=== PATIENT | female | born 1935 | race Caucasian/White ===

== ENCOUNTER 2017-08-07 06:40 | Inpatient (IN) ==
--- NOTE | 2017-08-07 07:41 | Emergency Department Note ---
SOB HPI - General Chief Complaint: Shortness of Breath/Dyspnea Stated Complaint: possible aspriration Time Seen by Provider: 08/07/17 07:07 Mode of arrival: EMS - History of Present Illness 81-year-old female brought in by ambulance [facility] which [facility] that she may have aspirated during supper the night before. She had a choking episode during supper. when the tennis desk team member arrived this morning states her sats are in the low 90s but they did put her on some low flow O2 and his sats are running at 9798%. Is running a low-grade temperature of 100.9. unAble to get a good history, she has had a history of a CVA unknown what her baseline is at this time. - Related Data Home Medications Medication Instructions Recorded Confirmed Aspirin [Lite Coat Aspirin] 325 mg PO DAILY 11/02/16 08/07/17 Docusate Sodium [Colace] 100 mg PO BID 11/02/16 08/07/17 Furosemide [Lasix] 40 mg PO BID 11/02/16 08/07/17 Gabapentin [Neurontin] 200 mg PO TID 11/02/16 08/07/17 Ipratropium/Albuterol [Duoneb] 3 ml NEB Q6HP PRN 11/02/16 08/07/17 Magnesium Hydroxide [Milk of 30 ml PO ONCE 11/02/16 08/07/17 Magnesia] Potassium Chloride [Klor-Con 10] 10 meq PO DAILY 11/02/16 08/07/17 Sennosides [Senna] 8.6 mg PO ONCE 11/02/16 08/07/17 Simethicone [Gas-X] 80 mg PO TID PRN 11/02/16 08/07/17 amLODIPine [Norvasc] 10 mg PO DAILY 11/02/16 08/07/17 cloNIDine HCL [Catapres] 0.2 mg PO HS 11/02/16 08/07/17 predniSONE [Prednisone] 20 mg PO DAILY 11/02/16 08/07/17 Previous Rx's Medication Instructions Recorded Acetaminophen [Tylenol] 650 mg PO Q6HP PRN #0 tablet 11/06/16 Baclofen [Lioresal] 10 mg PO Q6HP PRN #0 tablet 11/06/16 Calcium W/Vit D3 500 mg PO BID tablet 11/06/16 Docusate Sodium [Colace] 100 mg PO BID capsule 11/06/16 HYDROcodone/APAP 10/325MG [[place] 1 - 2 tab PO Q4HP PRN #30 tablet 11/06/16 10/325Mg] LORazepam [Ativan] 0.5 mg PO HSP PRN #20 tablet 11/06/16 Magnesium Hydroxide [Milk of 30 ml PO DAILYP PRN #0 oral.susp 11/06/16 Magnesia] Multivit,Ther Iron,Ca,FA & Min 1 tab PO DAILY tablet 11/06/16 [Multivitamin W/Minerals] Naloxone HCl [Narcan] 0.1 mg IV Q2MIN PRN #0 vial 11/06/16 Sennosides [Senokot] 2 tab PO HS PRN #0 tablet 11/06/16 Warfarin [Coumadin] 5 mg PO DAILY@1400 tablet 11/06/16 Allergies Allergy/AdvReac Type Severity Reaction Status Date / Time No Known Drug Allergies Allergy Verified 11/02/16 21:58 Review of Systems Limitations: ROS unobtainable due to patients medical condition Constitutional: Reports: fever, chills Past Medical History - Past Medical History Medical history: Reports: other (Hypertension, CVA with dysphasia, GERD dementia polymyalgia rheumatica) Surgical history ED: Reports: non-contributory - Social History smoking status: Never smoker Alcohol use: Reports: None Drug use: Reports: none Course Vital Signs Temperature 100.9 F H 08/07/17 06:42 Pulse Rate 91 H 08/07/17 06:42 Respiratory Rate 20 08/07/17 06:42 Blood Pressure 145/56 08/07/17 06:42 Pulse Oximetry (%) 97 08/07/17 06:42 Temperature 100.9 F H 08/07/17 06:42 Pulse Rate 95 H 08/07/17 07:02 Respiratory Rate 20 08/07/17 06:42 Blood Pressure 140/52 08/07/17 07:02 Pulse Oximetry (%) 98 08/07/17 07:02 Shortness of Breath/Dyspnea - [facility] Narrative Medical decision making narrative: Chest x-ray reveals left upper lobe infiltrate. Her white count is elevated to 16,600 with 79 segs and 6 bands her lactic acid is 3.2. Signs are stable no hypotension. Sats in the holding at 9798 on 2 L of O2. She started on Rocephin and Zithromax. I will use Zithromax as the INR was only 1.1 at this time. She is DNR and comfort care only but antibiotics and IV fluids okay. - Lab Data Result diagrams: 08/07/17 07:17 08/07/17 07:17 Lab Results 08/07/17 08/07/17 08/07/17 Range/Units 07:17 07:17 07:17 WBC 16.6 H (4.5-11.0) K/mcL RBC 4.38 (4.00-5.20) M/mcL Hgb 14.3 (12.0-15.0) g/dL Hct 43.0 (36.0-48.0) % MCV 98.2 (80.0-100.0) fL MCH 32.7 (26.0-34.0) pg MCHC 33.3 (31.0-36.0) g/dL RDW 14.1 (11.5-14.5) % Plt Count 223 (140-440) K/mcL MPV 10.1 (7.4-10.4) fL Total Counted 100 Seg Neutrophils % 79 H (38-78) % Band Neutrophils % 6 (0-10) % Lymphocytes % 5 L (15-49) % Monocytes % (Manual) 8 (1-12) % Eosinophils % (Manual) 2 (0-7) % Platelet Estimate Normal (NORMAL) RBC Morphology Normal (NORMAL) PT (11.9-14.5) sec INR (0.9-1.1) VBG Lactic Acid 3.2 H (0.5-2.2) mmol/L Sodium 141 (133-145) mmol/L Potassium 3.7 (3.3-5.1) mmol/L Chloride 97 (96-108) mmol/L Carbon Dioxide 26 (22-30) mmol/L Anion Gap 18.0 H (8-16) BUN 23 (8-23) mg/dl Creatinine 1.1 (0.6-1.1) mg/dl GFR Calculation 47 Glucose 143 H (70-105) mg/dL Calcium 9.2 (8.6-10.4) mg/dl Total Bilirubin 0.4 (0.0-1.0) mg/dL AST 22 (0-37) U/l ALT 22 (0-40) U/l Alkaline Phosphatase 77 (39-117) U/L NT-Pro-B Natriuret Pep 950.5 H (0-450) pg/ml Total Protein 7.5 (5.9-8.4) gm/dL Albumin 3.9 (3.2-5.2) gm/dL Globulin 3.6 (2.2-3.7) gm/dL Albumin/Globulin Ratio 1.1 (1.0-2.3) 08/07/17 Range/Units 07:17 WBC (4.5-11.0) K/mcL RBC (4.00-5.20) M/mcL Hgb (12.0-15.0) g/dL Hct (36.0-48.0) % MCV (80.0-100.0) fL MCH (26.0-34.0) pg MCHC (31.0-36.0) g/dL RDW (11.5-14.5) % Plt Count (140-440) K/mcL MPV (7.4-10.4) fL Total Counted Seg Neutrophils % (38-78) % Band Neutrophils % (0-10) % Lymphocytes % (15-49) % Monocytes % (Manual) (1-12) % Eosinophils % (Manual) (0-7) % Platelet Estimate (NORMAL) RBC Morphology (NORMAL) PT 14.8 H (11.9-14.5) sec INR 1.1 (0.9-1.1) VBG Lactic Acid (0.5-2.2) mmol/L Sodium (133-145) mmol/L Potassium (3.3-5.1) mmol/L Chloride (96-108) mmol/L Carbon Dioxide (22-30) mmol/L Anion Gap (8-16) BUN (8-23) mg/dl Creatinine (0.6-1.1) mg/dl GFR Calculation Glucose (70-105) mg/dL Calcium (8.6-10.4) mg/dl Total Bilirubin (0.0-1.0) mg/dL AST (0-37) U/l ALT (0-40) U/l Alkaline Phosphatase (39-117) U/L NT-Pro-B Natriuret Pep (0-450) pg/ml Total Protein (5.9-8.4) gm/dL Albumin (3.2-5.2) gm/dL Globulin (2.2-3.7) gm/dL Albumin/Globulin Ratio (1.0-2.3) Disposition Pt seen by [facility]/PA only: No Clinical Impression: Pneumonia involving left lung Qualifiers: Pneumonia type: due to unspecified organism Lung location: upper lobe of lung Qualified Code(s): J18.1 - Lobar pneumonia, unspecified organism Disposition: Xfer As Inpt ([facility]) Condition: Undetermined Referrals: Guille Arriaga MD [Primary Care Provider] - Time of Disposition: 08:54
[2017-08-07] MEDS ORDERED: cefTRIAXone 1 GM VIAL IV ONE (07:58)
[2017-08-07 07:59] LABS: Mean Cell Volume 98.2 fL (80.0-100.0); Mean Corpuscular HGB Conc 33.3 g/dL (31.0-36.0); Mean Corpuscular Hemoglobin 32.7 pg (26.0-34.0); Platelet Count 223 K/mcL (140-440); RBC 4.38 M/mcL (4.00-5.20); Red Cell Distribution Width 14.1 % (11.5-14.5)
[2017-08-07 08:18] LABS: ALT/SGPT 22 U/l (0-40); Albumin 3.9 gm/dL (3.2-5.2); Albumin/Globulin Ratio 1.1 (1.0-2.3); Alkaline Phosphatase 77 U/L (39-117); Blood Urea Nitrogen 23 mg/dl (8-23); proBNP 950.5 pg/ml (0-450)
--- NOTE | 2017-08-07 08:20 | XRay Report ---
INDICATION: Fever TECHNIQUE: AP chest x-ray,semierect portable COMPARISON: 11/04/2016, 11/02/2016 FINDINGS:Prominent interstitial markings bilaterally. This is unchanged. Left heart border is not well-visualized and left upper lobe infiltrate is possible. Findings may represent acute pneumonia. Follow-up chest x-ray would be helpful. No change in heart size. No evidence for congestive heart failure. There is mitral valve annular calcification. IMPRESSION: Abnormal interstitial markings bilaterally, unchanged 1. Possible left upper lobe infiltrate. Follow-up radiographs recommended Interpreted and Authenticated by: Erick Wasserman 08/07/17
[2017-08-07 08:23] LABS: Band Neutrophils % 6 % (0-10); Eosinophils % (Manual) 2 % (0-7); Lymphocytes % 5 % (15-49); Monocytes % (Manual) 8 % (1-12); Platelet Estimate NORMAL (NORMAL); RBC Morphology NORMAL (NORMAL); Segmented Neutrophils % 79 % (38-78)
[2017-08-07] MEDS ORDERED: AZITHROMYCIN 500 MG in DEXTROSE 5% IN WATER 250 ML IV ONE (08:41)
[2017-08-07 09:30] LABS: Appearance,Urine CLEAR; Bacteria,Urine 0 /hpf (0); Bilirubin,Urine NEG (NEG); Color,Urine YELLOW; Glucose,Urine (UA) NEGATIVE (NEG); Leukocyte Esterase,Urine NEG /uL (NEG); Mucus,Urine FEW /hpf (0); Nitrate,Urine NEG (NEG); Protein,Urine NEG (NEG); Specific Gravity,Urine 1.019 (1.000-1.035); Urine Blood NEG mg/dL (<0.03); Urine Hyaline Cast 33 /lpf (0-2); Urine RBC 3 /hpf (0-1); Urine Squamous Epithelial Cell 0 /hpf (0-4); Urine Transitional Epi Cells < 1 /hpf (0-2); Urine WBC 1 /hpf (0-4); Urobilinogen,Urine NEG (NEG)
[2017-08-07] MEDS ORDERED: ONDANSETRON 4 MG/2 ML VIAL IV PRN (10:47)
[2017-08-07] MEDS: LEVOFLOXACIN 750 MG/150 ML BAG IV SCH (11:21)
[2017-08-07] MEDS: 0.9 % SODIUM CHLORIDE 10 ML SYRINGE IV SCH ×3 (11:21→23:56)
[2017-08-07] MEDS: PIPERACILLIN SODIUM/TAZOBACTAM 3.375 GM in DEXTROSE 5% IN WATER 50 ML IV SCH ×3 (13:05→23:57)
[2017-08-07] MEDS ORDERED: ACETAMINOPHEN 325 MG TABLET PO PRN (17:10)
[2017-08-07] MEDS ORDERED: SIMETHICONE 80 MG TAB.CHEW PO PRN (17:10)
[2017-08-07] MEDS ORDERED: IPRATROPIUM/ALBUTEROL 3 ML AMPUL.NEB NEB PRN (17:10)
[2017-08-07] MEDS ORDERED: NALOXONE HCL 0.4 MG/ML VIAL IV PRN (17:10)
[2017-08-07] MEDS ORDERED: MAGNESIUM HYDROXIDE 30 ML ORAL.SUSP PO PRN (17:10)
[2017-08-07] MEDS ORDERED: SENNOSIDES 1 TABLET PO PRN (17:10)
[2017-08-07] MEDS: DABIGATRAN ETEXILATE MESYLATE 75 MG CAPSULE PO SCH (21:21)
[2017-08-07] MEDS: CALCIUM W/VIT D3 500 MG TABLET PO SCH (21:21)
[2017-08-07] MEDS: cloNIDine HCL 0.1 MG TABLET PO SCH (21:21)
[2017-08-07] MEDS: LORazepam 0.5 MG TABLET PO PRN (21:21)
[2017-08-07] MEDS: MAGNESIUM HYDROXIDE 30 ML ORAL.SUSP PO SCH (21:31)
[2017-08-07] MEDS: GABAPENTIN 400 MG CAPSULE PO SCH (21:32)
[2017-08-07] MEDS: DOCUSATE SODIUM 100 MG CAPSULE PO SCH (21:33)
[2017-08-07] MEDS ORDERED: GABAPENTIN 100 MG CAPSULE PO ONE (21:36)
--- NOTE | 2017-08-07 22:06 | Internal Med History&Physical ---
Medical - H&P: [facility] Patient information: Note initiated : 08/07/17 at 9:56 pm Service Date, if different from initiated Date: [] Patient: January Torres a 81 y/o F admitted on 08/07/17 for Possible Aspiration. Chief complaint: altered mental status History of present illness: Ms. Torres is a 81 year old F, resident of a SNF, sent for evaluation of decreased mental status. The night before patient had a coughing spell during dinner, otherwise no changes reported. O2 sats taken by EMT was low 90's and temp 100.0, and patient was non-responsive to verbal stimuli. 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 At baseline she is 'aphasic', but alert and engaged with her visitors. Patient was not responsive to verbal stimuli. There were upper airway secretions causing gurgling sound. ROS unobtainable: due to mental status (non-responsive to verbal stimuli) Medical - H&P: PMH Medical history: Medical History Intertrochanteric fracture of right hip (Acute) CVA (cerebral vascular accident) (Chronic) Closed right hip fracture (Acute) Pneumonia involving left lung (Acute) Functional capacity: wheelchair bound Smoking status: Never smoker Drug use: none Alcohol use: none Medical - H&P: Meds Home Medications Medication Instructions Recorded Confirmed Type Furosemide [Lasix] 40 mg PO BID 11/02/16 08/07/17 History Gabapentin [Neurontin] 200 mg PO BID 11/02/16 08/07/17 History Ipratropium/Albuterol [Duoneb] 3 ml NEB Q6HP PRN 11/02/16 08/07/17 History Sennosides [Senna] 8.6 mg PO ONCE 11/02/16 08/07/17 History Simethicone [Gas-X] 80 mg PO TID PRN 11/02/16 08/07/17 History amLODIPine [Norvasc] 10 mg PO DAILY 11/02/16 08/07/17 History cloNIDine HCL [Catapres] 0.2 mg PO HS 11/02/16 08/07/17 History Acetaminophen [Tylenol] 650 mg PO Q6HP PRN #0 tablet 11/06/16 08/07/17 Rx Baclofen [Lioresal] 10 mg PO Q6HP PRN #0 tablet 11/06/16 08/07/17 Rx Calcium W/Vit D3 500 mg PO BID tablet 11/06/16 08/07/17 Rx Docusate Sodium [Colace] 100 mg PO BID capsule 11/06/16 08/07/17 Rx HYDROcodone/APAP 10/325MG [[place] 1 - 2 tab PO Q4HP PRN #30 tablet 11/06/1608/07 Rx 10/325Mg] LORazepam [Ativan] 0.5 mg PO HSP PRN #20 tablet 11/06/16 08/07/17 Rx Magnesium Hydroxide [Milk of 30 ml PO DAILYP PRN #0 oral.susp 11/06/16 08/07/17 Rx Magnesia] Sennosides [Senokot] 2 tab PO HS PRN #0 tablet 11/06/16 08/07/17 Rx Calcitonin [Miacalcin] 1 spray NS DAILY 08/07/17 08/07/17 History Cholecalciferol (Vitamin D3) [D3 2,000 unit PO DAILY 08/07/17 08/07/17 History Dots] Dabigatran Etexilate Mesylate 75 mg PO BID 08/07/17 08/07/17 History [Pradaxa] Escitalopram [Lexapro] 5 mg PO DAILY 08/07/17 08/07/17 History Folic Acid 1 mg PO DAILY 08/07/17 08/07/17 History Gabapentin [Neurontin] 300 mg PO HS 08/07/17 08/07/17 History Misoprostol [Cytotec] 100 mcg PO ACB 08/07/17 08/07/17 History Multivitamin [One Daily] 1 each PO DAILY 08/07/17 08/07/17 History Zinc Gluconate [Zinc] 50 mg PO WEEKLY 08/07/17 08/07/17 History predniSONE [Prednisone] 10 mg PO DAILY 08/07/17 08/07/17 History Allergies Allergy/AdvReac Type Severity Reaction Status Date / Time No Known Drug Allergies Allergy Verified 11/02/16 21:58 Medical - H&P: Exam - Constitutional Vitals: Temp Pulse Resp BP Pulse Ox 98.3 F 81 22 145/73 95 08/07/17 20:00 08/07/17 20:00 08/07/17 20:00 08/07/17 20:00 08/07/17 20:00 General appearance: moderate distress, obese - Head Head exam: Present: normal inspection - ENT ENT exam: Present: mucous membranes dry - Neck Neck exam: Present: normal inspection - Respiratory Respiratory exam: Present: accessory muscle use, rales, rhonchi - Cardiovascular Cardiovascular exam: Present: normal rate and rhythm - GI/Abdominal GI/Abdominal exam: Present: normal bowel sounds, soft - Extremities Exam Extremities exam: Present: pedal edema Medical - H&P: Reslt - Labs CBC & Chem 7: 08/07/17 07:17 08/07/17 07:17 Labs: Short CBC 08/07/17 Range/Units 07:17 WBC 16.6 H (4.5-11.0) K/mcL Hgb 14.3 (12.0-15.0) g/dL Hct 43.0 (36.0-48.0) % Plt Count 223 (140-440) K/mcL BMP 08/07/17 07:17 Sodium 141 Potassium 3.7 Chloride 97 Carbon Dioxide 26 BUN 23 Creatinine 1.1 Glucose 143 H Calcium 9.2 Liver Function 08/07/17 Range/Units 07:17 Total Bilirubin 0.4 (0.0-1.0) mg/dL AST 22 (0-37) U/l ALT 22 (0-40) U/l Alkaline Phosphatase 77 (39-117) U/L Albumin 3.9 (3.2-5.2) gm/dL Urine 08/07/17 Range/Units 08:57 Urine Color Yellow Urine Appearance Clear Urine pH 5.0 (5.0-9.0) Ur Specific [place] 1.019 (1.000-1.035) Urine Protein Neg (NEG) mg/dL Urine Glucose (UA) Negative (NEG) mg/dL Medical - H&P: A/P - Narrative A/P Narrative: 81-year-old female, resident of a SNF, presented 08/07 with following problems: + PNEUMONIA With respiratory distress, low grade fever, WBC 16, CXR: COLEMAN infiltrate) DD aspiration pneumonia vs healthcare associated pneumonia Empric treatment started with Zosyn and Levofloxacin (MRSA: negative) + S/P CVA WITH RIGHT HEMIPARESIS AND APHASIA. On Dabigatran, will continue Is on pureed diet in SNF' Will obtain swallowing eval + POLYMYALGIA RHEUMATICA On prednisone 10 mg. Will continue. + CHRONIC PAIN Coninue usual meds. DVT prophylaxis: dabigatran Code status: DNR
[2017-08-08] MEDS: 0.9 % SODIUM CHLORIDE 10 ML SYRINGE IV SCH ×3 (05:30→20:27)
[2017-08-08] MEDS: PIPERACILLIN SODIUM/TAZOBACTAM 3.375 GM in DEXTROSE 5% IN WATER 50 ML IV SCH ×2 (05:30→11:36)
[2017-08-08 05:39] LABS: Basophils # (Auto) 0 K/mcL (0.0-0.3); Basophils % (Auto) 0.3 % (0.0-2.0); Eosinophils # (Auto) 0.3 K/mcL (0.0-0.7); Eosinophils % (Auto) 2.6 % (0.0-7.0); Lymphocytes # (Auto) 1.6 K/mcL (1.5-4.8); Lymphocytes % (Auto) 15.6 % (15.5-49.0); Mean Cell Volume 97.9 fL (80.0-100.0); Mean Corpuscular HGB Conc 34.1 g/dL (31.0-36.0); Mean Corpuscular Hemoglobin 33.4 pg (26.0-34.0); Monocytes # (Auto) 0.8 K/mcL (0.1-0.9); Monocytes % (Auto) 7.5 % (1.0-12.0); Platelet Count 179 K/mcL (140-440); RBC 3.66 M/mcL (4.00-5.20); Red Cell Distribution Width 14.2 % (11.5-14.5)
[2017-08-08 06:01] LABS: Albumin 3.2 gm/dL (3.2-5.2); Blood Urea Nitrogen 16 mg/dl (8-23)
[2017-08-08] MEDS: PANTOPRAZOLE 40 MG VIAL IV SCH (07:23)
[2017-08-08] MEDS ORDERED: POTASSIUM CHLORIDE 10 MEQ TABLET PO SCH (08:00)
[2017-08-08] MEDS: BACLOFEN 10 MG TABLET PO PRN ×2 (08:07→19:27)
[2017-08-08] MEDS: predniSONE 20 MG TABLET PO SCH (08:07)
[2017-08-08] MEDS ORDERED: ENOXAPARIN 40 MG/0.4 ML SYRINGE SQ SCH (09:00)
[2017-08-08] MEDS: DABIGATRAN ETEXILATE MESYLATE 75 MG CAPSULE PO SCH ×2 (09:26→20:28)
[2017-08-08] MEDS: GABAPENTIN 400 MG CAPSULE PO SCH ×2 (09:26→20:28)
[2017-08-08] MEDS: HYDROcodone/APAP 10/325MG TABLET PO PRN ×2 (09:26→17:22)
[2017-08-08] MEDS: FUROSEMIDE 40 MG TABLET PO SCH (09:26)
[2017-08-08] MEDS: amLODIPine 5 MG TABLET PO SCH (09:26)
[2017-08-08] MEDS: ASPIRIN 325 MG ENTERIC COATED TABLET PO SCH (09:26)
[2017-08-08] MEDS: MULTIVIT,THER IRON,CA,FA & MIN 1 TABLET PO SCH (09:27)
[2017-08-08] MEDS: CALCIUM W/VIT D3 500 MG TABLET PO SCH ×2 (09:27→20:27)
[2017-08-08] MEDS: DOCUSATE SODIUM 100 MG CAPSULE PO SCH ×2 (09:27→20:29)
[2017-08-08] MEDS ORDERED: FLU VACC QS2017-18 36MOS UP/PF 60 MCG/0.5 ML SYRINGE IM ONE (10:00)
--- NOTE | 2017-08-08 16:32 | Internal Med Progress Note ---
Medical - PN: Subj Patient information: Note initiated : 08/08/17 at 4:29 pm Service Date, if different from initiated Date: [] Patient: January Torres 81 y/o F admitted on 08/07/17 for Possible Aspiration/Pneumonia. Interval history: 08/08: Patient is awake and alert. Significant change from yesterday upon arrival in ED when she was non-responsive. Afebrile. VS wnl. Evaluated by ST; Honey consistency liquid recommended. Has good appetite. - Constitutional Vitals: Vital Signs Temp Pulse Resp BP Pulse Ox 97.5 F 72 22 126/58 94 08/08/17 12:00 08/08/17 07:22 08/08/17 12:00 08/08/17 12:00 08/08/17 12:00 Period Temp Pulse Resp BP Sys/Roberts Pulse Ox Last 24 Hr 97.0 F-98.3 F 72-81 18-22 110-146/58-73 92-95 Intake and Output 08/08/17 08/08/17 08/08/17 05:59 13:59 21:59 Intake Total 70 / 70 100 / 100 Output Total 375 / 375 Balance -305 / -305 100 / 100 Weight 195 lb Patient Weight 08/09/17 05:59 Weight 195 lb Intake & Output: Intake & Output 08/08/17 08/08/17 08/08/17 05:59 13:59 21:59 Intake Total 70 / 70 100 / 100 Output Total 375 / 375 Balance -305 / -305 100 / 100 Weight 195 lb Intake: IV 50 / 50 100 / 100 Zosyn 3.375 gm In Dextrose 5% 50 / 50 100 / 100 in Water 50 ml @ 100 mls/hr IV Q6H [facility] Rx#:[id number] Oral 20 / 20 Output: Urine Catheter Amount 375 / 375 Other: Meal Breakfast Percent of Meal Consumed 100% General appearance: no acute distress, obese - Respiratory Respiratory exam: Present: decreased breath sounds. Absent: rales, respiratory distress - Cardiovascular Cardiovascular exam: Present: normal rate and rhythm - Extremities Exam Extremities exam: Present: pedal edema. Absent: calf tenderness Medical - PN: Obj Da - Labs CBC & Chem 7: 08/08/17 04:26 08/08/17 04:26 Labs: Abnormal Lab Results 08/08/17 08/08/17 08/07/17 04:26 04:26 08:57 WBC RBC 3.66 L Hct 35.8 L Seg Neutrophils % Lymphocytes % PT VBG Lactic Acid Anion Gap Glucose 115 H NT-Pro-B Natriuret Pep Urine RBC 3 H Hyaline Casts 33 H 08/07/17 08/07/17 08/07/17 07:17 07:17 07:17 WBC RBC Hct Seg Neutrophils % Lymphocytes % PT 14.8 H VBG Lactic Acid 3.2 H Anion Gap 18.0 H Glucose 143 H NT-Pro-B Natriuret Pep 950.5 H Urine RBC Hyaline Casts 08/07/17 07:17 WBC 16.6 H RBC Hct Seg Neutrophils % 79 H Lymphocytes % 5 L PT VBG Lactic Acid Anion Gap Glucose NT-Pro-B Natriuret Pep Urine RBC Hyaline Casts Meds: Medications Acetaminophen (Tylenol) 650 mg PO Q6HP PRN PRN Reason: PAIN/FEVER > 101 Hydrocodone Bitart/Acetaminophen ([place] 10/325mg) 1 - 2 tab PO Q4HP PRN PRN Reason: Pain Last Admin: 08/08/17 09:26 Dose: 1 tab Albuterol/Ipratropium (Duoneb) 3 ml NEB Q6HP PRN PRN Reason: Shortness Of Breath Amlodipine Besylate (Norvasc) 10 mg PO DAILY [facility] Last Admin: 08/08/17 09:26 Dose: 10 mg Aspirin (Ecotrin) 325 mg PO DAILY [facility] Last Admin: 08/08/17 09:26 Dose: 325 mg Baclofen (Lioresal) 5 mg PO Q8HP PRN PRN Reason: Muscle Spasticity Last Admin: 08/08/17 08:07 Dose: 5 mg Calcium/Vitamin D (Calcium W/Vit D3) 500 mg PO BID [facility] Last Admin: 08/08/17 09:27 Dose: 500 mg Clonidine HCl (Catapres) 0.2 mg PO HS [facility] Last Admin: 08/07/17 21:21 Dose: 0.2 mg Dabigatran (Pradaxa) 75 mg PO BID [facility] Last Admin: 08/08/17 09:26 Dose: 75 mg Docusate Sodium (Colace) 100 mg PO BID [facility] Last Admin: 08/08/17 09:27 Dose: 100 mg Furosemide (Lasix) 40 mg PO DAILY [facility] Last Admin: 08/08/17 09:26 Dose: 40 mg Gabapentin (Neurontin) 200 mg PO BID [facility] Last Admin: 08/08/17 09:26 Dose: 200 mg Levofloxacin (Levaquin) 750 mg in 150 mls @ 100 mls/hr IV Q48H [facility] Last Infusion: 08/07/17 12:50 Dose: Infused Piperacillin Sod/Tazobactam (Sod 3.375 gm/ Dextrose) 50 mls @ 100 mls/hr IV Q6H [facility] Last Infusion: 08/08/17 12:05 Dose: Infused Iron Carb/Multivit/[place]/Folic Acid (Multivitamin W/Minerals) 1 tab PO DAILY [facility] Last Admin: 08/08/17 09:27 Dose: 1 tab Lorazepam (Ativan) 0.5 mg PO HSP PRN PRN Reason: Insomnia Last Admin: 08/07/17 21:21 Dose: 0.5 mg Magnesium Hydroxide (Milk Of Magnesia) 30 ml PO DAILYP PRN PRN Reason: Constipation Magnesium Hydroxide (Milk Of Magnesia) 30 ml PO ONCE [facility] Last Admin: 08/07/17 21:31 Dose: 30 ml Naloxone HCl (Narcan) 0.1 mg IV Q2MIN PRN PRN Reason: Opiate Reversal Ondansetron HCl (Zofran) 4 mg IV Q6HP PRN PRN Reason: Nausea And Vomiting Pantoprazole Sodium (Protonix) 40 mg IV ACB [facility] Last Admin: 08/08/17 07:23 Dose: 40 mg Potassium Chloride (Kdur) 10 meq PO [facility] Last Admin: 08/08/17 08:07 Dose: 10 meq Prednisone (Prednisone) 10 mg PO [facility] Last Admin: 08/08/17 08:07 Dose: 10 mg Senna (Senokot) 2 tab PO HSP PRN PRN Reason: Constipation Simethicone (Mylicon) 80 mg PO TIDP PRN PRN Reason: Constipation/Flatulence Sodium Chloride (Saline Flush) 10 ml IV Q8 [facility] Last Admin: 08/08/17 14:59 Dose: 10 ml Medical - PN: A/P - Time Spent With Patient Total time spent is greater than 50% in coordination of care (as documented) at patient's floor/unit and/or counseling patient: less than 15 minutes - Narrative A/P Narrative: A/P Narrative: 81-year-old female, resident of a SNF, presented 08/07 with following problems: + PNEUMONIA With respiratory distress, low grade fever, WBC 16, CXR: COLEMAN infiltrate) DD aspiration pneumonia vs healthcare associated pneumonia Empric treatment started with Zosyn and Levofloxacin (MRSA: negative) 08/08: Zosyn d/cd, switched to Augmentin + S/P CVA WITH RIGHT HEMIPARESIS AND APHASIA. On Dabigatran, will continue Is on pureed diet in SNF' ST completed, diet adjusted + POLYMYALGIA RHEUMATICA On prednisone 10 mg. Will continue. + CHRONIC PAIN Coninue usual meds. DVT prophylaxis: dabigatran Code status: DNR
[2017-08-08] MEDS: MAGNESIUM HYDROXIDE 30 ML ORAL.SUSP PO SCH (16:39)
[2017-08-08] MEDS: POTASSIUM CHLORIDE 20 MEQ TABLET PO SCH (17:23)
[2017-08-08] MEDS: AMOXICILLIN/POTASSIUM CLAV 875 MG TABLET PO SCH (17:36)
[2017-08-08] MEDS: LORazepam 0.5 MG TABLET PO PRN (20:27)
[2017-08-08] MEDS: cloNIDine HCL 0.1 MG TABLET PO SCH (20:28)
[2017-08-09] MEDS: 0.9 % SODIUM CHLORIDE 10 ML SYRINGE IV SCH ×2 (06:01→07:28)
[2017-08-09] MEDS: PANTOPRAZOLE 40 MG VIAL IV SCH (07:27)
[2017-08-09] MEDS: AMOXICILLIN/POTASSIUM CLAV 875 MG TABLET PO SCH (08:53)
[2017-08-09] MEDS: POTASSIUM CHLORIDE 20 MEQ TABLET PO SCH (08:53)
[2017-08-09] MEDS: FUROSEMIDE 40 MG TABLET PO SCH (08:54)
[2017-08-09] MEDS: MULTIVIT,THER IRON,CA,FA & MIN 1 TABLET PO SCH (08:54)
[2017-08-09] MEDS: predniSONE 20 MG TABLET PO SCH (08:54)
[2017-08-09] MEDS: DOCUSATE SODIUM 100 MG CAPSULE PO SCH (08:54)
[2017-08-09] MEDS: ASPIRIN 325 MG ENTERIC COATED TABLET PO SCH (08:54)
[2017-08-09] MEDS: CALCIUM W/VIT D3 500 MG TABLET PO SCH (08:54)
[2017-08-09] MEDS: amLODIPine 5 MG TABLET PO SCH (08:55)
[2017-08-09] MEDS: DABIGATRAN ETEXILATE MESYLATE 75 MG CAPSULE PO SCH (08:55)
[2017-08-09] MEDS ORDERED: GABAPENTIN 100 MG CAPSULE PO SCH (09:00)
[2017-08-09] MEDS: LEVOFLOXACIN 750 MG/150 ML BAG IV SCH (09:57)
[2017-08-09] MEDS: HYDROcodone/APAP 10/325MG TABLET PO PRN (10:10)
--- NOTE | 2017-08-09 14:21 | Discharge Summary ---
Medical - DS: Prov Patient information: Note initiated : 08/09/17 at 2:12 pm Service Date, if different from initiated Date: [] Patient: January Torres 81 y/o F admitted on 08/07/17 for Possible Aspiration/Pneumonia. Date of admission: 08/07/17 10:05 Discharge date: 08/09/17 Primary care physician: Guille Arriaga Consults: 08/07/17 08:46 Consult to Physician [CONS] Stat Comment: Consulting Provider: Edd Strong Reason For Exam: Physician to Consult 08/08/17 10:37 Consult to Physician [CONS] Routine Comment: Consulting Provider: [facility] Reason For Exam: Physician to Consult Medical - DS: Meds - Discharge Medications Prescriptions: Amoxicillin/Potassium Clav [Augmentin] 875 mg PO BIDCC #20 tablet Active and Home Medications: Home Medications Furosemide [Lasix] 40 mg PO BID 11/02/16 [History Confirmed 08/07/17 Last Taken 08/06/17] Gabapentin [Neurontin] 200 mg PO BID 11/02/16 [History Confirmed 08/07/17 Last Taken 08/06/17] Ipratropium/Albuterol [Duoneb] 3 ml NEB Q6HP PRN 11/02/16 [History Confirmed 05/15 Last Taken Unknown] Sennosides [Senna] 8.6 mg PO ONCE 11/02/16 [History Confirmed 08/07/17 Last Taken Unknown] Simethicone [Gas-X] 80 mg PO TID PRN 11/02/16 [History Confirmed 08/07/17 Last Taken Unknown] amLODIPine [Norvasc] 10 mg PO DAILY 11/02/16 [History Confirmed 08/07/17 Last Taken 08/06/17] cloNIDine HCL [Catapres] 0.2 mg PO HS 11/02/16 [History Confirmed 08/07/17 Last Taken Unknown] Acetaminophen [Tylenol] 650 mg PO Q6HP PRN #0 tablet 11/06/16 [Rx Confirmed 05/15 Last Taken Unknown] Baclofen [Lioresal] 10 mg PO Q6HP PRN #0 tablet 11/06/16 [Rx Confirmed 08/07/17 Last Taken Unknown] Calcium W/Vit D3 500 mg PO BID tablet 11/06/16 [Rx Confirmed 08/07/17 Last Taken Unknown] Docusate Sodium [Colace] 100 mg PO BID capsule 11/06/16 [Rx Confirmed 08/07/17 Last Taken Unknown] HYDROcodone/APAP 10/325MG [[place] 10/325Mg] 1 - 2 tab PO Q4HP PRN #30 tablet 06/14 [Rx Confirmed 08/07/17 Last Taken Unknown] LORazepam [Ativan] 0.5 mg PO HSP PRN #20 tablet 11/06/16 [Rx Confirmed 08/07/17 Last Taken Unknown] Magnesium Hydroxide [Milk of Magnesia] 30 ml PO DAILYP PRN #0 oral.susp [Rx Confirmed 08/07/17 Last Taken Unknown] Sennosides [Senokot] 2 tab PO HS PRN #0 tablet 11/06/16 [Rx Confirmed 08/07/17 Last Taken Unknown] Calcitonin [Miacalcin] 1 spray NS DAILY 08/07/17 [History Confirmed 08/07/17 Last Taken 08/06/17] Cholecalciferol (Vitamin D3) [D3 Dots] 2,000 unit PO DAILY 08/07/17 [History Confirmed 08/07/17 Last Taken 08/06/17] Dabigatran Etexilate Mesylate [Pradaxa] 75 mg PO BID 08/07/17 [History Confirmed 08/07/17 Last Taken 08/06/17] Escitalopram [Lexapro] 5 mg PO DAILY 08/07/17 [History Confirmed 08/07/17 Last Taken 08/06/17] Folic Acid 1 mg PO DAILY 08/07/17 [History Confirmed 08/07/17 Last Taken ] Gabapentin [Neurontin] 300 mg PO HS 08/07/17 [History Confirmed 08/07/17 Last Taken 08/06/17] Misoprostol [Cytotec] 100 mcg PO ACB 08/07/17 [History Confirmed 08/07/17 Last Taken 08/06/17] Multivitamin [One Daily] 1 each PO DAILY 08/07/17 [History Confirmed 08/07/17 Last Taken 08/06/17] Zinc Gluconate [Zinc] 50 mg PO WEEKLY 08/07/17 [History Confirmed 08/07/17 Last Taken 08/06/17] predniSONE [Prednisone] 10 mg PO DAILY 08/07/17 [History Confirmed 08/07/17 Last Taken 08/06/17] Medical - DS: Hosp Hospital course: A/P Narrative: 81-year-old female, resident of a SNF, admitted to the medical floor 08/07 with following problems: + PNEUMONIA With respiratory distress, low grade fever, WBC 16, CXR: COLEMAN infiltrate) DD aspiration pneumonia vs healthcare associated pneumonia Empric treatment started with Zosyn and Levofloxacin (MRSA: negative) Patient improved rapidly. Mental status cleared. Upon arrival to the ED, patient was barely responsive, the following morning she was awake, alert and communicating. WBC normalized from 16.6 to 10 the following day. She has had no fever during admission. IV antibiotics was switched to Augmentin which was well tolerated. Patient was evaluated by speech therapy: 08/08/17 12:53 - Speech Therapy Eval by Quita Daniel [facility] Num: [id number] : 1935 Patient Age: 81 S: The pt was alert and cooperative. She was unable to follow simple commands for OPE. She parroted responses and was unreliable in yes/no responses. The pt experienced several painful spasms during this session however the pt's nurse reported it was too soon to get more medication. O/A: The pt was placed in a fully upright position in bed w/ extra pillows placed behind her back and repositioning throughout meal was needed to ensure an upright position. The pt was unable to complete an OPE however her OM function appeared to be mildly impaired secondary to CVA. Prior to the initiation of trials, she demonstrated a gurgly vocal quality. She was unable to cough or clear her throat or swallow prior to trials to see if this would clear her pharynx. The pt was presented w/ Levels 1-2 and honey thick liquids by straw. She demonstrated an increase in gurgly vocal quality when presented w / pureed textures. Suspected pharyngeal residue and/or penetration was noted. She was unable to follow command for dry/second swallow. She was assisted w/ using a chin tuck that decreased the gurgle. She was allowed time between boluses to try to swallow again. Her attention was brought to her "throat sounds " w/ instructed to swallow again. She tolerated trials of Level 2 textures w/ thorough mastication, no pocketing and a timely initiation of the swallow. No gurgly vocal quality was noted when using a chin tuck. She was presented w/ trials of honey-thick liquids (HTL). She habitually took 3 consecutive swallows resulting in an increase in gurgle sound. She was instructed in single, small sips which decreased this sound when using a chin tuck. Staff (Nurse Dumont and MARRY Mullins) education was provided on feeding strategies. They were provided w/ a demonstration of verbal and tactile cuing to implement a chin tuck (on all intake) and small, single sips as well as alternating bites and sips; they expressed understanding of information provided. P: Recommend: Level 2 textures and Honey-thick liquids. If chest x-ray does not improve- suggest a MBS w/ ANIMAL SURGEON to determine safest diet level. + S/P CVA WITH RIGHT HEMIPARESIS AND APHASIA. On Dabigatran, will continue Is on pureed diet in SNF' Swallowing evaluation was obtained (see above assessment and recommendation). She did well on this diet. No coughing or difficulty with swallowing noted. + POLYMYALGIA RHEUMATICA On prednisone 10 mg, which was continued + CHRONIC PAIN Controlled on home meds. Culture result: urine: no growth. MRSA: negative Patient has been doing well last 24 hours on po Augmentin. She was happy to go back home. Discharge diagnosis: Pneumonia Secondary discharge diagnosis: S/P CVA Reason for admission: Pneumonia Pertinent studies/significant findings: CXR: COLEMAN infiltrate - Time Spent with Patient Total time spent providing and/or coordinating discharge services: Less than 30 minutes Medical - DS: Exam - Constitutional Vitals: Vital Signs Temp Pulse Resp BP Pulse Ox 08/09/17 12:00 97.9 F 16 105/57 95 08/09/17 07:40 18 95 08/09/17 07:36 96.8 F L 18 123/66 95 08/09/17 04:00 97.2 F 69 18 113/67 94 08/09/17 00:00 97.3 F 74 16 130/76 91 08/08/17 19:36 97.4 F 74 18 125/66 92 08/08/17 16:00 97.8 F 22 122/61 94 Intake and Output 08/09/17 08/09/17 08/09/17 05:59 13:59 21:59 Intake Total 510 / 510 Output Total 775 / 775 101 / 101 Balance -775 / -775 409 / 409 Intake: IV 150 / 150 Oral 360 / 360 Output: Urine Catheter Amount 775 / 775 Void Amount 100 / 100 Uretheral (العراقي) 100 / 100 # of times incontinent of urine 1 / Other: Meal Lunch Percent of Meal Consumed 100% # of times incontinent of 1 Bowels General appearance: obese - Respiratory Respiratory exam: Present: normal respiratory exam - Cardiovascular Cardiovascular exam: Present: normal rate and rhythm - GI/Abdominal GI/Abdominal exam: Present: normal bowel sounds, soft - Extremities Exam Extremities exam: Present: pedal edema - Neurological Exam Neurological exam: Present: alert Medical - DS: Data Labs on day of discharge: Preliminary micro results at discharge 08/07/17 07:17 Blood Culture - Preliminary Blood 08/07/17 08:47 Blood Culture - Preliminary Blood Laboratory Results - last 48 hr 08/08/17 08/08/17 04:26 04:26 WBC 10.0 RBC 3.66 L Hgb 12.2 Hct 35.8 L MCV 97.9 MCH 33.4 MCHC 34.1 RDW 14.2 Plt Count 179 MPV 10.2 Gran % 74.0 Lymph % (Auto) 15.6 [place] % (Auto) 7.5 Eos % (Auto) 2.6 Baso % (Auto) 0.3 Gran # 7.4 Lymph # (Auto) 1.6 [place] # (Auto) 0.8 Eos # (Auto) 0.3 Baso # (Auto) 0 Sodium 139 Potassium 3.4 Chloride 98 Carbon Dioxide 29 Anion Gap 12.0 BUN 16 Creatinine 1.1 GFR Calculation 47 Glucose 115 H Calcium 8.9 Phosphorus 3.0 Albumin 3.2 Medical - DS: A/P - Patient/Caregiver Discharge Instructions Activity: resume usual activities as tolerated Diet: Dysphagia [facility] Alter Additional Instructions: Level 2 textures and Honey-thick liquids Encourage fluid intake: offer fluids every 2 hours when awake. Other Amb Orders: Renal Function Panel Time Frame: 1 Week, Location: Determined By Patient - Follow up Plan Follow up with: Guille Arriaga MD [Primary Care Provider] - (please call/schedule hospital follow up to be seen in 7-10 days.) Disposition: Xf SNF Prognosis: Fair Rehab Potential: Fair I certify that the patient requires SNF services: Yes (needs ambulance for transfer to SNF) Overall status at discharge: patient is back to baseline
== END 2017-08-09 15:35 | DRG 178 ==
LOC: ED 06:40 → MEDSUR 10:05
PROVIDERS: ADMIT Specialist; ATTEND Specialist

== ENCOUNTER 2017-10-04 09:25 | Inpatient (IN) ==
[2017-10-04] MEDS ORDERED: 0.9 % SODIUM CHLORIDE 1,000 ML IV ONE (09:33)
[2017-10-04] MEDS ORDERED: IPRATROPIUM/ALBUTEROL 3 ML AMPUL.NEB NEB ONE (09:33)
--- NOTE | 2017-10-04 09:54 | Emergency Department Note ---
SOB HPI - General Chief Complaint: Shortness of Breath/Dyspnea Stated Complaint: Shortness of breath Time Seen by Provider: 10/04/17 09:48 Source: EMS Mode of arrival: EMS Limitations: altered mental status - History of Present Illness 81-year-old female referred over from the fpc for increasing cough and shortness of breath with shortness of breath. server software engineer arrived they did give her a DuoNeb. She currently arrives with O2 in the oxygen saturations running at 97% . She has a history of CHF she denies any chest pain there is no radiation of pain to the arm or axilla. And is currently afebrile with a temperature 98.1. However the fpc states that she had a fever of 99 they had recorded.. Denies any chest pain or radiation of pain to the arm axilla. Does have dementia and is a poor historian. He does have pedal edema. History of CHF. - Related Data Home Medications Medication Instructions Recorded Confirmed Gabapentin [Neurontin] 200 mg PO BID 11/02/16 08/07/17 Ipratropium/Albuterol [Duoneb] 3 ml NEB Q6HP PRN 11/02/16 08/07/17 Simethicone [Gas-X] 80 mg PO TID PRN 11/02/16 08/07/17 amLODIPine [Norvasc] 10 mg PO DAILY 11/02/16 08/07/17 cloNIDine HCL [Catapres] 0.2 mg PO HS 11/02/16 08/07/17 Calcitonin [Miacalcin] 1 spray NS DAILY 08/07/17 08/07/17 Cholecalciferol (Vitamin D3) [D3 2,000 unit PO DAILY 08/07/17 08/07/17 Dots] Dabigatran Etexilate Mesylate 75 mg PO BID 08/07/17 08/07/17 [Pradaxa] Escitalopram [Lexapro] 5 mg PO DAILY 08/07/17 08/07/17 Folic Acid 1 mg PO DAILY 08/07/17 08/07/17 Gabapentin [Neurontin] 300 mg PO HS 08/07/17 08/07/17 Misoprostol [Cytotec] 100 mcg PO ACB 08/07/17 08/07/17 Multivitamin [One Daily] 1 each PO DAILY 08/07/17 08/07/17 Zinc Gluconate [Zinc] 50 mg PO WEEKLY 08/07/17 08/07/17 predniSONE [Prednisone] 10 mg PO DAILY 08/07/17 08/07/17 Previous Rx's Medication Instructions Recorded Acetaminophen [Tylenol] 650 mg PO Q6HP PRN #0 tablet 11/06/16 Baclofen [Lioresal] 10 mg PO Q6HP PRN #0 tablet 11/06/16 Calcium W/Vit D3 500 mg PO BID tablet 11/06/16 Docusate Sodium [Colace] 100 mg PO BID capsule 11/06/16 HYDROcodone/APAP 10/325MG [[place] 1 - 2 tab PO Q4HP PRN #30 tablet 11/06/16 10-325Mg] LORazepam [Ativan] 0.5 mg PO HSP PRN #20 tablet 11/06/16 Magnesium Hydroxide [Milk of 30 ml PO DAILYP PRN #0 oral.susp 11/06/16 Magnesia] Sennosides [Senokot] 2 tab PO HS PRN #0 tablet 11/06/16 Amoxicillin/Potassium Clav 875 mg PO BIDCC #20 tab 08/09/17 [Augmentin] Aspirin [Ecotrin] 325 mg PO DAILY tab.ec 08/09/17 Dabigatran Etexilate Mesylate 75 mg PO BID capsule 08/09/17 [Pradaxa] Furosemide [Lasix] 40 mg PO DAILY #90 tab 08/09/17 HYDROcodone/APAP 10/325MG [[place] 1 - 2 tab PO Q4H PRN #60 tab 08/09/17 10-325Mg] LORazepam [Ativan] 0.5 mg PO HSP PRN #30 tab 08/09/17 Multivit,Ther Iron,Ca,FA & Min 1 tab PO DAILY tablet 08/09/17 [Multivitamin W/Minerals] Naloxone HCl [Narcan] 0.1 mg IV Q2MIN PRN vial 08/09/17 Allergies Allergy/AdvReac Type Severity Reaction Status Date / Time No Known Drug Allergies Allergy Verified 11/02/16 21:58 Review of Systems All systems ED: reviewed and negative except as stated. Constitutional: Denies: fever, chills Eyes: Denies: eye pain ENT ED: Denies: ear pain, throat pain Cardiovascular: Reports: orthopnea. Denies: chest pain, palpitations Respiratory: Reports: shortness of breath, cough, wheezes, phlegm. Denies: hemoptysis, stridor Gastrointestinal: Denies: abdominal pain Genitourinary: Denies: dysuria, urgency Musculoskeletal: Denies: back pain, joint swelling Integumentary: Denies: rash, lesions Neurological: Denies: headache Psychiatric: Denies: anxiety Endocrine: Denies: fatigue Hematological/Lymphatic: Denies: easy bleeding Allergic/Immunologic: Denies: facial swelling Past Medical History - Past Medical History Medical history: Reports: other (Hypertension, CVA with dysphasia, GERD dementia polymyalgia rheumatica) Surgical history ED: Reports: hip replacement - Social History smoking status: Never smoker Alcohol use: Reports: None Drug use: Reports: none Physical Exam Limitations: altered mental status General appearance: other (dementia) Head: atraumatic, normocephalic Eye: Present: normal appearance, PERRL ENT: normal exam, normal oropharynx, mucous membranes moist Neck: Present: normal inspection, full ROM, trachea midline Chest: Present: normal inspection, symmetric chest wall rise. Absent: tenderness Respiratory: Present: normal lung sounds bilaterally, other (honchi). Absent: respiratory distress, wheezes Cardiovascular: Present: normal rhythm. Absent: bradycardia, tachycardia Abdominal: Present: soft. Absent: distention, tenderness Course Vital Signs Temperature 98.2 F 10/04/17 09:26 Pulse Rate 74 10/04/17 09:26 Respiratory Rate 26 H 10/04/17 09:26 Blood Pressure 109/54 10/04/17 09:26 Pulse Oximetry (%) 97 10/04/17 09:26 Temperature 98.2 F 10/04/17 09:26 Pulse Rate 77 10/04/17 10:57 Respiratory Rate 15 10/04/17 10:57 Blood Pressure 106/51 10/04/17 10:46 Pulse Oximetry (%) 91 10/04/17 10:57 Shortness of Breath/Dyspnea - [facility] Narrative Medical decision making narrative: Patient's white count is elevated at 16,100 with 77 segs and 3 bands lactic acid is elevated as well 3.6. xray shows fibrosis possible infiltrate unclear . Dr Pacheco consulted and pt to be admitted rocephi and levaquin given blood clutures drawn - Lab Data Result diagrams: 10/04/17 09:44 03/09/18 09:44 Lab Results 10/04/17 10/04/17 10/04/17 Range/Units 09:44 09:44 09:44 WBC (4.5-11.0) K/mcL RBC (4.00-5.20) M/mcL Hgb (12.0-15.0) g/dL Hct (36.0-48.0) % MCV (80.0-100.0) fL MCH (26.0-34.0) pg MCHC (31.0-36.0) g/dL RDW (11.5-14.5) % Plt Count (140-440) K/mcL MPV (7.4-10.4) fL Total Counted Seg Neutrophils % (38-78) % Band Neutrophils % (0-10) % Lymphocytes % (15-49) % Monocytes % (Manual) (1-12) % Eosinophils % (Manual) (0-7) % Platelet Estimate (NORMAL) RBC Morphology (NORMAL) VBG Lactic Acid 3.6 H (0.5-2.2) mmol/L Sodium 141 (133-145) mmol/L Potassium 4.0 (3.3-5.1) mmol/L Chloride 99 (96-108) mmol/L Carbon Dioxide 25 (22-30) mmol/L Anion Gap 17.0 H (8-16) BUN 15 (8-23) mg/dl Creatinine 1.1 (0.6-1.1) mg/dl GFR Calculation 47 Glucose 168 H (70-105) mg/dL Calcium 9.0 (8.6-10.4) mg/dl Total Bilirubin 0.3 (0.0-1.0) mg/dL AST 31 (0-37) U/l ALT 37 (0-40) U/l Alkaline Phosphatase 74 (39-117) U/L NT-Pro-B Natriuret Pep 589.2 H (0-450) pg/ml Total Protein 7.0 (5.9-8.4) gm/dL Albumin 3.6 (3.2-5.2) gm/dL Globulin 3.4 (2.2-3.7) gm/dL Albumin/Globulin Ratio 1.1 (1.0-2.3) Procalcitonin 0.10 (<0.10) ng/mL Urine Color Urine Appearance Urine pH (5.0-9.0) Ur Specific [place] (1.000-1.035) Urine Protein (NEG) mg/dL Urine Glucose (UA) (NEG) mg/dL Urine Ketones (NEG) mg/dL Urine Occult Blood (<0.03) mg/dL Urine Nitrate (NEG) Urine Bilirubin (NEG) mg/dL Urine Urobilinogen (NEG) mg/dL Ur Leukocyte Esterase (NEG) /uL Ur Culture Indicated? 10/04/17 10/04/17 Range/Units 09:44 10:25 WBC 16.1 H (4.5-11.0) K/mcL RBC 3.95 L (4.00-5.20) M/mcL Hgb 13.2 (12.0-15.0) g/dL Hct 39.3 (36.0-48.0) % MCV 99.3 (80.0-100.0) fL MCH 33.4 (26.0-34.0) pg MCHC 33.6 (31.0-36.0) g/dL RDW 15.0 H (11.5-14.5) % Plt Count 202 (140-440) K/mcL MPV 9.8 (7.4-10.4) fL Total Counted 100 Seg Neutrophils % 77 (38-78) % Band Neutrophils % 3 (0-10) % Lymphocytes % 7 L (15-49) % Monocytes % (Manual) 12 (1-12) % Eosinophils % (Manual) 1 (0-7) % Platelet Estimate Normal (NORMAL) RBC Morphology Normal (NORMAL) VBG Lactic Acid (0.5-2.2) mmol/L Sodium (133-145) mmol/L Potassium (3.3-5.1) mmol/L Chloride (96-108) mmol/L Carbon Dioxide (22-30) mmol/L Anion Gap (8-16) BUN (8-23) mg/dl Creatinine (0.6-1.1) mg/dl GFR Calculation Glucose (70-105) mg/dL Calcium (8.6-10.4) mg/dl Total Bilirubin (0.0-1.0) mg/dL AST (0-37) U/l ALT (0-40) U/l Alkaline Phosphatase (39-117) U/L NT-Pro-B Natriuret Pep (0-450) pg/ml Total Protein (5.9-8.4) gm/dL Albumin (3.2-5.2) gm/dL Globulin (2.2-3.7) gm/dL Albumin/Globulin Ratio (1.0-2.3) Procalcitonin (<0.10) ng/mL Urine Color Yellow Urine Appearance Clear Urine pH 5.0 (5.0-9.0) Ur Specific [place] 1.027 (1.000-1.035) Urine Protein Neg (NEG) mg/dL Urine Glucose (UA) Negative (NEG) mg/dL Urine Ketones Neg (NEG) mg/dL Urine Occult Blood Neg (<0.03) mg/dL Urine Nitrate Neg (NEG) Urine Bilirubin Neg (NEG) mg/dL Urine Urobilinogen Neg (NEG) mg/dL Ur Leukocyte Esterase Neg (NEG) /uL Ur Culture Indicated? No Disposition Pt seen by TRIMMER HAND/PA only: No Clinical Impression: Pneumonia Qualifiers: Pneumonia type: due to unspecified organism Laterality: bilateral Disposition: Xfer As Inpt ([facility]) Condition: Fair Referrals: Guille Arriaga MD [Primary Care Provider] -
--- NOTE | 2017-10-04 10:11 | XRay Report ---
HISTORY: Reason for Exam:Cough FINDINGS: Diffuse increased interstitial lung markings are present bilaterally. This is a chronic finding and there has been no significant change since 08/07/17. This is most likely pulmonary fibrosis. Superimposed active inflammation cannot be excluded. There is no lobar consolidation and no evidence of a mass or pleural effusion. The heart size is upper limits of normal and there is dense calcification in the mitral annulus. The pulmonary vessels cannot be evaluated due to the diffuse lung disease. IMPRESSION: Severe pulmonary fibrosis and no acute abnormality Interpreted and Authenticated by: Gary Patiño 10/04/17
[2017-10-04 10:12] LABS: Mean Cell Volume 99.3 fL (80.0-100.0); Mean Corpuscular HGB Conc 33.6 g/dL (31.0-36.0); Mean Corpuscular Hemoglobin 33.4 pg (26.0-34.0); Platelet Count 202 K/mcL (140-440); RBC 3.95 M/mcL (4.00-5.20)
[2017-10-04] MEDS ORDERED: cefTRIAXone 1 GM VIAL IV ONE (10:16)
[2017-10-04] MEDS ORDERED: LEVOFLOXACIN 500 MG/100 ML BAG IV ONE (10:18)
[2017-10-04] MEDS ORDERED: FUROSEMIDE 40 MG/4 ML VIAL IV ONE (10:20)
[2017-10-04 10:36] LABS: proBNP 589.2 pg/ml (0-450)
[2017-10-04 10:40] LABS: ALT/SGPT 37 U/l (0-40); Albumin 3.6 gm/dL (3.2-5.2); Albumin/Globulin Ratio 1.1 (1.0-2.3); Alkaline Phosphatase 74 U/L (39-117); Blood Urea Nitrogen 15 mg/dl (8-23)
[2017-10-04 10:44] LABS: Band Neutrophils % 3 % (0-10); Eosinophils % (Manual) 1 % (0-7); Lymphocytes % 7 % (15-49); Monocytes % (Manual) 12 % (1-12); Platelet Estimate NORMAL (NORMAL); RBC Morphology NORMAL (NORMAL); Segmented Neutrophils % 77 % (38-78)
[2017-10-04 11:02] LABS: Appearance,Urine CLEAR; Bilirubin,Urine NEG (NEG); Color,Urine YELLOW; Glucose,Urine (UA) NEGATIVE (NEG); Leukocyte Esterase,Urine NEG /uL (NEG); Protein,Urine NEG (NEG); Specific Gravity,Urine 1.027 (1.000-1.035); Urine Blood NEG mg/dL (<0.03); Urobilinogen,Urine NEG (NEG)
[2017-10-04] MEDS ORDERED: NALOXONE HCL 0.4 MG/ML VIAL IV PRN (15:43)
[2017-10-04] MEDS ORDERED: ACETAMINOPHEN 1,000 MG/100 ML BOTTLE IV PRN (15:43)
[2017-10-04] MEDS ORDERED: traZODone HCL 50 MG TABLET PO PRN (15:43)
[2017-10-04] MEDS ORDERED: 0.9 % SODIUM CHLORIDE 10 ML SYRINGE IV SCH (15:43)
[2017-10-04] MEDS ORDERED: guaiFENesin/CODEINE 10 ML UDC PO PRN (15:43)
[2017-10-04] MEDS ORDERED: MAGNESIUM SULFATE 2 GM/50 ML BAG IV PRN (15:43)
[2017-10-04] MEDS ORDERED: ONDANSETRON 4 MG/2 ML VIAL IV PRN (15:43)
[2017-10-04] MEDS ORDERED: ACETAMINOPHEN 325 MG TABLET PO PRN (15:43)
[2017-10-04] MEDS ORDERED: oxyCODONE/APAP 5/325MG TABLET PO PRN (15:43)
[2017-10-04] MEDS ORDERED: POTASSIUM CHLORIDE 20 MEQ PACKET PO PRN (15:43)
[2017-10-04] MEDS ORDERED: VANCOMYCIN PER PHARMACY IV SCH (15:43)
[2017-10-04] MEDS: 0.9 % SODIUM CHLORIDE 10 ML SYRINGE IV SCH ×2 (16:03→22:00)
[2017-10-04] MEDS ORDERED: SIMETHICONE 80 MG TAB.CHEW PO PRN (16:03)
[2017-10-04] MEDS ORDERED: LORazepam 0.5 MG TABLET PO PRN (16:03)
[2017-10-04] MEDS ORDERED: IPRATROPIUM/ALBUTEROL 3 ML AMPUL.NEB NEB PRN (16:03)
[2017-10-04] MEDS: methylPREDNISolone SOD SUCC 125 MG/2 ML VIAL IV SCH ×2 (16:03→22:00)
[2017-10-04] MEDS ORDERED: HYDROmorphone 2 MG/ML VIAL IV PRN (16:28)
--- NOTE | 2017-10-04 16:33 | History and Physical Report ---
DATE OF ADMISSION: 10/04/2017 REASON FOR ADMISSION: Worsening shortness of breath and weakness. HISTORY OF CHIEF COMPLAINT: The patient is an 81-year-old resident of [facility] who was brought in after she started experiencing worsening shortness of breath over the last couple of days which has progressed to the point the patient is unable to function. The patient suffers from prior stroke with residual expressive aphasia and right hemiparesis. The patient is, however, on her baseline is able to handle oral feeds. She requires assistance with activities of daily living at the care center. She is certainly exposed to sick contacts due to healthcare facility. However, no family members are present and patient is unable to provide any history due to expressive aphasia. Most of the history was obtained from review of medical records and from ER physician. Initial workup in the ER was significant for chest infiltrates along with elevated white count over 16,000, lactic acid at 3.6. In light of severe sepsis and pneumonia, Hospitalist Service was consulted. The patient received first dose of antibiotics after cultures were drawn. At the time of evaluation, the patient appears nondistressed. She is tachycardic. She is unable to answer any questions except for head nods in yes or no to review of systems and denies chest pain, abdominal pain. REVIEW OF SYSTEMS: Ten-point review of system was performed and is negative except the ones discussed above. PAST MEDICAL HISTORY: 1. History of prior CVA with right hemiparesis and expressive aphasia. 2. Hypertension. 3. Coronary artery disease. 4. Atrial fibrillation. 5. Anticoagulation for CVA prophylaxis. 6. Neuropathy. 7. Degenerative joint disease. 8. Reactive airway disease. 9. Peptic ulcer disease. 10. Anxiety disorder. 11. Recent admission for pneumonia in 07/2017. 12. History of polymyalgia rheumatica. SOCIAL HISTORY: No history of smoking or alcoholism. Currently resides at a care facility. She is wheelchair bound. CURRENT MEDICATIONS: 1. Furosemide 40 mg b.i.d. 2. Gabapentin 200 mg b.i.d. 3. Ipratropium as needed q.6. 4. Sennoside daily. 5. Amlodipine 10 mg. 6. Clonidine 0.2 mg. 7. Acetaminophen 650 mg q.6 p.r.n. 8. Baclofen 10 mg q.6 p.r.n. 9. Hydrocodone/acetaminophen 325/10 mg q.4 p.r.n. 10. Lorazepam 0.5 mg at bedtime p.r.n. 11. Pradaxa 75 mg b.i.d. 12. Lexapro 5 mg daily. 13. Gabapentin 300 mg at bedtime 14. Misoprostol 100 mcg before breakfast. 15. Prednisone 10 mg daily. ALLERGIES: None significant. PHYSICAL EXAMINATION: GENERAL: The patient is fairly lethargic, fatigued, but not in distress. BMI 38. Height 5 feet 2 inches. VITAL SIGNS: Blood pressure 88/27, respiratory rate 16, temperature 98.2, pulse 72 regular, sats 97% on 2 liters of oxygen. HEENT: Pupils asymmetric. Oral cavity is dry. No ear or nose discharge. Head is normocephalic and atraumatic. NECK: No lymphadenopathy. HEART: S1, S2, occasionally irregular rhythm. CHEST: Diminished breath sounds at bases with late inspiratory crackles. ABDOMEN: Soft and nontender. LOWER EXTREMITIES: Bilateral pitting edema from knee to the ankle. Otherwise, no joint swelling or erythema. SKIN: No suspicious lesions. PSYCHIATRIC: No anxiety, cooperative. NEURO: Expressive aphasia with residual hemiparesis. LABS AND IMAGING: White count 16.1, hemoglobin 13.2, platelets 202, neutrophils 80% including 3% bands. Lactic acid 3.6. Sodium 141, potassium 4, creatinine 1.1, BUN 15. Procalcitonin 0.1. LFTs unremarkable. UA unremarkable. X-ray chest: Severe pulmonary fibrosis. ABG 7.42/41/83. EKG: LVH, sinus rhythm. ASSESSMENT AND PLAN: An 81-year-old with prior history of CVA, admitted with nosocomial pneumonia. 1. Nosocomial pneumonia. Continue antibiotic coverage including Zosyn, vancomycin and Levaquin and deescalate based on culture and sensitivity results. Await sputum and blood cultures. 2. Sepsis with hypotension. Continue crystalloids, broad antibiotic coverage and management per guidelines. 3. Other prior medical issues, including: a. History of prior CVA. Continue dabigatran. b. Hypertension. Continue amlodipine and clonidine. c. Neuropathy. Continue gabapentin. d. Anxiety disorder. Continue Lexapro. e. History of PMR. Continue prednisone. PLAN FOR TODAY: 1. Admit as inpatient in light of CURB-65 score over 3 in this patient with healthcare-associated pneumonia. 2. Broad antibiotic coverage. 3. Close hemodynamic monitoring. 4. Preexisting medical condition management as above. [email or web address] Job ID: [id number] Doc ID: [id number] Cali Arriaga MD
[2017-10-04] MEDS: PIPERACILLIN SODIUM/TAZOBACTAM 3.375 GM in DEXTROSE 5% IN WATER 50 ML IV SCH ×2 (16:49→22:00)
[2017-10-04] MEDS: IPRATROPIUM/ALBUTEROL 3 ML AMPUL.NEB NEB SCH ×3 (16:50→23:00)
[2017-10-04] MEDS: BACLOFEN 10 MG TABLET PO PRN (16:59)
[2017-10-04] MEDS ORDERED: 0.9 % SODIUM CHLORIDE 500 ML IV ONE (17:01)
--- NOTE | 2017-10-04 17:13 | Internal Med Progress Note ---
Medical - Auxillary Note - Subjective Patient Information: Note initiated : 10/04/17 at 5:10 pm Service Date, if different from initiated Date: [] Patient: January Torres 81 y/o F admitted on 10/04/17 for Shortness of breath. Chief Complaint: [] Vital Signs Temp Pulse Resp BP Pulse Ox 98.2 F 74 20 152/100 94 10/04/17 15:38 10/04/17 16:50 10/04/17 16:50 10/04/17 15:38 10/04/17 15:38 Period Temp Pulse Resp BP Sys/Roberts Pulse Ox Last 24 Hr 98.2 F-98.2 F 70-97 14-26 68-152/27-128 89-100 Intake and Output 10/04/17 10/04/17 10/04/17 05:59 13:59 21:59 Intake Total 1100 / 1100 Balance 1100 / 1100 Weight 211 lb Patient Weight 10/05/17 05:59 Weight 211 lb Medications Acetaminophen (Tylenol) 650 mg PO Q6HP PRN PRN Reason: PAIN/FEVER > 101 Hydrocodone Bitart/Acetaminophen ([place] 10/325mg) 1 tab PO Q4HP PRN PRN Reason: Pain Albuterol/Ipratropium (Duoneb) 3 ml NEB Q4HRT [facility] Last Admin: 10/04/17 16:50 Dose: 3 ml Albuterol/Ipratropium (Duoneb) 3 ml NEB Q6HP PRN PRN Reason: Shortness Of Breath Amlodipine Besylate (Norvasc) 10 mg PO DAILY [facility] Aspirin (Ecotrin) 325 mg PO DAILY [facility] Baclofen (Lioresal) 10 mg PO Q6HP PRN PRN Reason: Muscle Spasticity Last Admin: 10/04/17 16:59 Dose: 10 mg Budesonide (Pulmicort) 0.5 mg NEB Q12 [facility] Clonidine HCl (Catapres) 0.2 mg PO HS [facility] Dabigatran (Pradaxa) 75 mg PO BID [facility] Docusate Sodium (Colace) 100 mg PO BID [facility] Escitalopram Oxalate (Lexapro) 5 mg PO DAILY [facility] Folic Acid (Folic Acid) 1 mg PO DAILY [facility] Furosemide (Lasix) 40 mg PO DAILY [facility] Gabapentin (Neurontin) 300 mg PO HS [facility] Gabapentin (Neurontin) 200 mg PO BID [facility] Guaifenesin/Codeine Phosphate (Robitussin Ac) 10 ml PO Q4HP PRN PRN Reason: Cough Heparin Sodium (Porcine) (Heparin) 5,000 unit SQ Q12 [facility] Hydromorphone HCl (Dilaudid) 0.25 mg IV Q4-6HP PRN PRN Reason: PAIN LEVEL > 6 Last Admin: 10/04/17 16:48 Dose: 0.25 mg Piperacillin Sod/Tazobactam (Sod 3.375 gm/ Dextrose) 50 mls @ 100 mls/hr IV Q8H [facility] Last Admin: 10/04/17 16:49 Dose: 100 mls/hr Magnesium Sulfate (Magnesium Sulfate) 2 gm in 50 mls @ 50 mls/hr IV UD PRN PRN Reason: MG = or < 1.7 Acetaminophen (Ofirmev) 1,000 mg in 100 mls @ 200 mls/hr IV Q6HP PRN PRN Reason: PAIN/FEVER > 101 Vancomycin HCl 1,500 mg/ (Sodium Chloride) 500 mls @ 333.3 mls/hr IV Q24H [facility] Sodium Chloride (Sodium Chloride 0.9%) 500 mls @ 0 mls/hr IV BOLUS ONE PRN Reason: Wide Open Stop: 10/04/17 17:02 Lorazepam (Ativan) 0.5 mg PO HSP PRN PRN Reason: Insomnia Methylprednisolone Sodium Succinate (Solu-Medrol) 62.5 mg IV Q8 [facility] Last Admin: 10/04/17 16:03 Dose: 62.5 mg Misoprostol (Cytotec) 100 mcg PO ACB [facility] Naloxone HCl (Narcan) 0.1 mg IV Q2MIN PRN PRN Reason: Opiate Reversal Ondansetron HCl (Zofran) 4 mg IV Q4HP PRN PRN Reason: Nausea And Vomiting Oxycodone/Acetaminophen (Percocet 5-325 Mg) 1 tab PO Q4HP PRN PRN Reason: Pain Potassium Chloride (Klor-Con) 40 meq PO DAILYP PRN PRN Reason: K+ < 3.5 Prednisone (Prednisone) 10 mg PO QAMCC [facility] Senna/Docusate Sodium (Senna Plus Tablet) 1 tab PO HS [facility] Simethicone (Mylicon) 80 mg PO TIDP PRN PRN Reason: GAS Sodium Chloride (Saline Flush) 10 ml IV Q8 [facility] Last Admin: 10/04/17 16:03 Dose: 10 ml Trazodone HCl (Desyrel) 50 mg PO HS [facility] Vancomycin HCl (Vancomycin Per Pharmacy) 1 order IV UD [facility] Result Diagarams 10/04/17 09:44 10/04/17 09:44 Abnormal Labs 10/04/17 10/04/17 10/04/17 16:00 09:44 09:44 WBC 16.1 H RBC 3.95 L RDW 15.0 H Lymphocytes % 7 L VBG Lactic Acid 4.6 H* 3.6 H Anion Gap Glucose NT-Pro-B Natriuret Pep 10/04/17 09:44 WBC RBC RDW Lymphocytes % VBG Lactic Acid Anion Gap 17.0 H Glucose 168 H NT-Pro-B Natriuret Pep 589.2 H patient started complaining of chest pain. Daughter Radha bedside. Case discussed with Radha about intervention including cardiac enzymes/EKG and if evidence of acute AK transfer to tertiary Center for PCI however daughter reiterated the patient is a no code and would not want any cardiac intervention at this time clearly understanding the risk of due to untreated AK as no further workup will be initiated at this time. Lactic acid elevated at 4.5. Plan * Crystalloid bolus * pain management on IV opioids * broad antibiotic coverage
[2017-10-04] MEDS: VANCOMYCIN 1,500 MG in 0.9 % SODIUM CHLORIDE 500 ML IV SCH (17:55)
[2017-10-04] MEDS: traZODone HCL 50 MG TABLET PO SCH (20:28)
[2017-10-04] MEDS: SENNOSIDES/DOCUSATE SODIUM 1 TAB TABLET PO SCH (20:29)
[2017-10-04] MEDS: GABAPENTIN 100 MG CAPSULE PO SCH (20:29)
[2017-10-04] MEDS: cloNIDine HCL 0.1 MG TABLET PO SCH (20:29)
[2017-10-04] MEDS: DABIGATRAN ETEXILATE MESYLATE 75 MG CAPSULE PO SCH (20:29)
[2017-10-04] MEDS: GABAPENTIN 300 MG CAPSULE PO SCH (20:29)
[2017-10-04] MEDS ORDERED: HYDROmorphone 2 MG/ML VIAL ONE (20:48)
[2017-10-04] MEDS: BUDESONIDE 0.5 MG/2 ML AMPUL.NEB NEB SCH (20:59)
[2017-10-04] MEDS ORDERED: HEPARIN 5,000 UNIT/ML VIAL SQ SCH (21:00)
[2017-10-04] MEDS: DOCUSATE SODIUM 100 MG CAPSULE PO SCH (21:02)
[2017-10-05] MEDS: IPRATROPIUM/ALBUTEROL 3 ML AMPUL.NEB NEB SCH ×3 (02:33→11:13)
[2017-10-05] MEDS: HYDROmorphone 2 MG/ML VIAL IV PRN ×3 (03:41→15:32)
[2017-10-05 05:01] LABS: Mean Corpuscular HGB Conc 33.7 g/dL (31.0-36.0); Platelet Count 188 K/mcL (140-440); RBC 3.59 M/mcL (4.00-5.20); Red Cell Distribution Width 15.3 % (11.5-14.5)
[2017-10-05 05:10] LABS: ALT/SGPT 30 U/l (0-40); Albumin 3.5 gm/dL (3.2-5.2); Alkaline Phosphatase 70 U/L (39-117); Bilirubin,Direct < 0.2 mg/dL (0.0-0.3); Blood Urea Nitrogen 17 mg/dl (8-23); Gamma Glutamyl Transpeptidase 76 U/L (5-36); Uric Acid 7.7 mg/dL (2.5-8.0)
[2017-10-05] MEDS: methylPREDNISolone SOD SUCC 125 MG/2 ML VIAL IV SCH (05:26)
[2017-10-05] MEDS: PIPERACILLIN SODIUM/TAZOBACTAM 3.375 GM in DEXTROSE 5% IN WATER 50 ML IV SCH ×3 (05:26→20:51)
[2017-10-05] MEDS: 0.9 % SODIUM CHLORIDE 10 ML SYRINGE IV SCH ×4 (05:56→22:43)
[2017-10-05 06:03] LABS: Lymphocytes % 4 % (15-49); Macrocytosis 1+ (NONE SEEN); Monocytes % (Manual) 1 % (1-12); Platelet Estimate NORMAL (NORMAL); RBC Morphology ABNORM (NORMAL); Segmented Neutrophils % 95 % (38-78)
[2017-10-05] MEDS: BUDESONIDE 0.5 MG/2 ML AMPUL.NEB NEB SCH (06:45)
[2017-10-05] MEDS: predniSONE 10 MG TABLET PO SCH (08:30)
[2017-10-05] MEDS: MISOPROSTOL 100 MCG TABLET PO SCH (08:30)
[2017-10-05] MEDS: FUROSEMIDE 40 MG TABLET PO SCH (08:30)
[2017-10-05] MEDS: GABAPENTIN 100 MG CAPSULE PO SCH ×2 (08:31→20:46)
[2017-10-05] MEDS: ESCITALOPRAM 10 MG TABLET PO SCH (08:32)
[2017-10-05] MEDS: FOLIC ACID 1 MG TABLET PO SCH (08:33)
[2017-10-05] MEDS: DABIGATRAN ETEXILATE MESYLATE 75 MG CAPSULE PO SCH ×2 (08:33→22:43)
[2017-10-05] MEDS: ASPIRIN 325 MG ENTERIC COATED TABLET PO SCH (08:33)
[2017-10-05] MEDS: DOCUSATE SODIUM 100 MG CAPSULE PO SCH ×2 (08:33→20:46)
--- NOTE | 2017-10-05 08:41 | Internal Med Progress Note ---
Medical - PN: Subj Patient information: Note initiated : 10/05/17 at 8:38 am Service Date, if different from initiated Date: [] Patient: January Torres 81 y/o F admitted on 10/04/17 for Shortness of breath. Chief Complaint: [] Interval history: 10/05- patient admitted with healthcare associated pneumonia/shortness of breath/ sepsis. started on broad antibiotic coverage for nosocomial pneumonia.elevated lactate 4.6 with white count 16.1. ABG 7.42/41/83. CURB 65 score 3/ PSI 100 10/06-patient doing well. No overnight events. sepsis clinically improving. Improved work of breathing. aphasia from previous stroke. no family at bedside. No telemetry events except for frequent PACs. White count down to 11,800. continue broad antibiotic coverage. - Constitutional Vitals: Vital Signs Temp Pulse Resp BP Pulse Ox 97.5 F 86 16 102/64 96 10/05/17 07:11 10/05/17 06:45 10/05/17 07:11 10/05/17 07:11 10/05/17 07:11 Period Temp Pulse Resp BP Sys/Roberts Pulse Ox Last 24 Hr 97.4 F-98.2 F 65-97 10-26 68-156/27-128 89-100 Intake and Output 10/04/17 10/05/17 10/05/17 21:59 05:59 13:59 Intake Total 1050 / 1050 100 / 100 Output Total 875 / 875 Balance 1050 / 1050 -775 / -775 Weight 205 lb Intake & Output: Intake & Output 10/04/17 10/05/17 10/05/17 21:59 05:59 13:59 Intake Total 1050 / 1050 100 / 100 Output Total 875 / 875 Balance 1050 / 1050 -775 / -775 Weight 205 lb Intake: IV 1050 / 1050 100 / 100 Sodium Chloride 0.9% 500 ml @ 500 / 500 Wide Open IV BOLUS ONE Rx#: [id number] Zosyn 3.375 gm In Dextrose 5% 50 / 50 100 / 100 in Water 50 ml @ 100 mls/hr IV Q8H [facility] Rx#:[id number] Vancomycin 1,500 mg In Sodium 500 / 500 Chloride 0.9% 500 ml @ 333.3 mls/hr IV Q24H [facility] Rx#: [id number] Output: Urine Catheter Amount 875 / 875 Other: Stool Size Moderate Small Stool Color Brown Brown Stool Consistency Soft Soft # of times incontinent of 1 1 Bowels General appearance: cooperative, no acute distress Exam: a phasic No telemetry events alert Nonlabored breathing No lymphedema Medical - PN: Obj Da - Labs CBC & Chem 7: 10/05/17 04:00 10/05/17 04:00 Labs: Abnormal Lab Results 10/05/17 10/05/17 10/04/17 04:00 04:00 16:00 WBC 11.8 H RBC 3.59 L MCV 101.0 H RDW 15.3 H Seg Neutrophils % 95 H Lymphocytes % 4 L RBC Morphology Abnorm A Macrocytosis 1+ A VBG Lactic Acid 4.6 H* Carbon Dioxide 21 L Anion Gap 19.0 H Glucose 241 H Calcium 8.5 L GGT 76 H Lactate Dehydrogenase 252 H NT-Pro-B Natriuret Pep 10/04/17 10/04/17 10/04/17 09:44 09:44 09:44 WBC 16.1 H RBC 3.95 L MCV RDW 15.0 H Seg Neutrophils % Lymphocytes % 7 L RBC Morphology Macrocytosis VBG Lactic Acid 3.6 H Carbon Dioxide Anion Gap 17.0 H Glucose 168 H Calcium GGT Lactate Dehydrogenase NT-Pro-B Natriuret Pep 589.2 H Meds: Medications Acetaminophen (Tylenol) 650 mg PO Q6HP PRN PRN Reason: PAIN/FEVER > 101 Hydrocodone Bitart/Acetaminophen ([place] 10/325mg) 1 tab PO Q4HP PRN PRN Reason: Pain Albuterol/Ipratropium (Duoneb) 3 ml NEB Q4HRT [facility] Last Admin: 10/05/17 06:45 Dose: 3 ml Albuterol/Ipratropium (Duoneb) 3 ml NEB Q6HP PRN PRN Reason: Shortness Of Breath Amlodipine Besylate (Norvasc) 10 mg PO DAILY [facility] Aspirin (Ecotrin) 325 mg PO DAILY [facility] Last Admin: 10/05/17 08:33 Dose: 325 mg Baclofen (Lioresal) 10 mg PO Q6HP PRN PRN Reason: Muscle Spasticity Last Admin: 10/04/17 16:59 Dose: 10 mg Budesonide (Pulmicort) 0.5 mg NEB Q12 [facility] Last Admin: 10/04/17 20:59 Dose: 0.5 mg Clonidine HCl (Catapres) 0.2 mg PO HS [facility] Last Admin: 10/04/17 20:29 Dose: 0.2 mg Dabigatran (Pradaxa) 75 mg PO BID [facility] Last Admin: 10/05/17 08:33 Dose: 75 mg Docusate Sodium (Colace) 100 mg PO BID [facility] Last Admin: 10/05/17 08:33 Dose: Not Given Escitalopram Oxalate (Lexapro) 5 mg PO DAILY [facility] Last Admin: 10/05/17 08:32 Dose: 5 mg Folic Acid (Folic Acid) 1 mg PO DAILY [facility] Last Admin: 10/05/17 08:33 Dose: 1 mg Furosemide (Lasix) 40 mg PO DAILY [facility] Last Admin: 10/05/17 08:30 Dose: 40 mg Gabapentin (Neurontin) 300 mg PO HS [facility] Last Admin: 10/04/17 20:29 Dose: 300 mg Gabapentin (Neurontin) 200 mg PO BID [facility] Last Admin: 10/05/17 08:31 Dose: 200 mg Guaifenesin/Codeine Phosphate (Robitussin Ac) 10 ml PO Q4HP PRN PRN Reason: Cough Hydromorphone HCl (Dilaudid) 0 mg IV Q2HP PRN PRN Reason: PAIN LEVEL > 6 Last Admin: 10/05/17 03:41 Dose: 0.5 mg Piperacillin Sod/Tazobactam (Sod 3.375 gm/ Dextrose) 50 mls @ 100 mls/hr IV Q8H [facility] Last Infusion: 10/05/17 05:59 Dose: Infused Magnesium Sulfate (Magnesium Sulfate) 2 gm in 50 mls @ 50 mls/hr IV UD PRN PRN Reason: MG = or < 1.7 Acetaminophen (Ofirmev) 1,000 mg in 100 mls @ 200 mls/hr IV Q6HP PRN PRN Reason: PAIN/FEVER > 101 Vancomycin HCl 1,500 mg/ (Sodium Chloride) 500 mls @ 333.3 mls/hr IV Q24H [facility] Last Infusion: 10/04/17 19:40 Dose: Infused Lorazepam (Ativan) 0.5 mg PO HSP PRN PRN Reason: Insomnia Methylprednisolone Sodium Succinate (Solu-Medrol) 62.5 mg IV Q8 [facility] Last Admin: 10/05/17 05:26 Dose: 62.5 mg Misoprostol (Cytotec) 100 mcg PO ACB [facility] Last Admin: 10/05/17 08:30 Dose: 100 mcg Naloxone HCl (Narcan) 0.1 mg IV Q2MIN PRN PRN Reason: Opiate Reversal Ondansetron HCl (Zofran) 4 mg IV Q4HP PRN PRN Reason: Nausea And Vomiting Oxycodone/Acetaminophen (Percocet 5-325 Mg) 1 tab PO Q4HP PRN PRN Reason: Pain Potassium Chloride (Klor-Con) 40 meq PO DAILYP PRN PRN Reason: K+ < 3.5 Prednisone (Prednisone) 10 mg PO QAC [facility] Last Admin: 10/05/17 08:30 Dose: 10 mg Senna/Docusate Sodium (Senna Plus Tablet) 1 tab PO [facility] Last Admin: 10/04/17 20:29 Dose: 1 tab Simethicone (Mylicon) 80 mg PO TIDP PRN PRN Reason: GAS Sodium Chloride (Saline Flush) 10 ml IV Q8 [facility] Last Admin: 10/05/17 05:56 Dose: 10 ml Trazodone HCl (Desyrel) 50 mg PO [facility] Last Admin: 10/04/17 20:28 Dose: 50 mg Vancomycin HCl (Vancomycin Per Pharmacy) 1 order IV UD [facility] Medical - PN: A/P - Time Spent With Patient Total time spent is greater than 50% in coordination of care (as documented) at patient's floor/unit and/or counseling patient: 25 - 35 minutes (1) Nosocomial pneumonia Status: Acute Assessment and plan: * Nosocomial pneumonia clinically improving-continue empiric antibiotic coverage and de-escalate based on cultures * Severe sepsis clinically improving-continue trending lactate. Improving urine output. Map at goal * dyspnea continue bronchodilators/steroids * History of CVA on Pradaxa * Hypertension-hold amlodipine/Clonidine in light of sepsis * neuropathy on gabapentin * history of polymyalgia rheumatica on prednisone * dVT prophylaxis continue Pradaxa Plan * Broad antibiotic coverage * sepsis management per guidelines * Pre-existing medical condition management on home meds * Hold antihypertensives until sepsis improves * DC Solu-Medrol continue prednisone Current Visit: Yes Medical - PN: Qual - VTE Deep Vein Thrombosis/Pulmonary Embolism Present on Admission: No
[2017-10-05] MEDS: BACLOFEN 10 MG TABLET PO PRN ×2 (08:55→15:32)
[2017-10-05] MEDS: HYDROcodone/APAP 10/325MG TABLET PO PRN (09:07)
[2017-10-05] MEDS: amLODIPine 5 MG TABLET PO SCH (09:08)
[2017-10-05] MEDS: VANCOMYCIN 1,500 MG in 0.9 % SODIUM CHLORIDE 500 ML IV SCH (09:37)
[2017-10-05] MEDS: 0.9 % SODIUM CHLORIDE 1,000 ML IV SCH (13:30)
[2017-10-05] MEDS ORDERED: LORazepam 2 MG/ML VIAL ONE (15:46)
[2017-10-05] MEDS ORDERED: LORazepam 2 MG/ML VIAL IV ONE (15:53)
[2017-10-05] MEDS: cloNIDine HCL 0.1 MG TABLET PO SCH (20:45)
[2017-10-05] MEDS: SENNOSIDES/DOCUSATE SODIUM 1 TAB TABLET PO SCH (20:46)
[2017-10-05] MEDS: GABAPENTIN 300 MG CAPSULE PO SCH (20:46)
[2017-10-05] MEDS: traZODone HCL 50 MG TABLET PO SCH (20:46)
[2017-10-06] MEDS: PIPERACILLIN SODIUM/TAZOBACTAM 3.375 GM in DEXTROSE 5% IN WATER 50 ML IV SCH ×3 (06:04→21:51)
[2017-10-06] MEDS: 0.9 % SODIUM CHLORIDE 10 ML SYRINGE IV SCH ×3 (06:04→20:37)
[2017-10-06] MEDS: HYDROmorphone 2 MG/ML VIAL IV PRN ×4 (08:42→18:32)
[2017-10-06 09:41] LABS: Mean Cell Volume 100.3 fL (80.0-100.0); Mean Corpuscular HGB Conc 33.6 g/dL (31.0-36.0); Mean Corpuscular Hemoglobin 33.7 pg (26.0-34.0); Platelet Count 224 K/mcL (140-440); RBC 3.83 M/mcL (4.00-5.20); Red Cell Distribution Width 15.2 % (11.5-14.5)
[2017-10-06 09:42] LABS: ALT/SGPT 28 U/l (0-40); Albumin 3.5 gm/dL (3.2-5.2); Alkaline Phosphatase 62 U/L (39-117); Bilirubin,Direct < 0.2 mg/dL (0.0-0.3); Blood Urea Nitrogen 20 mg/dl (8-23); Gamma Glutamyl Transpeptidase 76 U/L (5-36)
--- NOTE | 2017-10-06 09:51 | Internal Med Progress Note ---
Medical - PN: Subj Patient information: Note initiated : 10/06/17 at 9:48 am Service Date, if different from initiated Date: [] Patient: January Torres 81 y/o F admitted on 10/04/17 for Shortness of breath. Chief Complaint: [] Interval history: patient admitted with healthcare associated pneumonia/shortness of breath/ sepsis. started on broad antibiotic coverage for nosocomial pneumonia.elevated lactate 4.6 with white count 16.1. ABG 7.42/41/83. CURB 65 score 3/ PSI 100 10/05-patient doing well. No overnight events. sepsis clinically improving. Improved work of breathing. aphasia from previous stroke. no family at bedside. No telemetry events except for frequent PACs. White count down to 11,800. continue broad antibiotic coverage. 10/06- no significant change since previous day. White count uptrending at 15, 000. Lactic acid uptrending. On broad antibiotic coverage. Chest and abdominal imaging pending. Patient experiences frequent cramping and pain involving chest and abdomen requiring IV opioids. Afebrile. no telemetry events. - Constitutional Vitals: Vital Signs Temp Pulse Resp BP Pulse Ox 96.4 F L 72 16 155/69 98 10/06/17 08:00 10/05/17 11:14 10/06/17 08:00 10/06/17 08:00 10/06/17 08:00 Period Temp Pulse Resp BP Sys/Roberts Pulse Ox Last 24 Hr 96.4 F-98.3 F 72 16-20 120-155/58-91 91-98 Intake and Output 10/05/17 10/06/17 10/06/17 20:59 05:59 13:59 Intake Total Output Total Balance Weight Intake & Output: Intake & Output 10/05/17 10/06/17 10/06/17 20:59 05:59 13:59 Intake Total Output Total Balance Weight Intake: IV Zosyn 3.375 gm In Dextrose 5% in Water 50 ml @ 100 mls/hr IV Q8H [facility] Rx#:[id number] Output: Urine Catheter Amount General appearance: mild distress Exam: intermittent abdominal and chest cramping/pain Nonlabored breathing no telemetry events Anxious Medical - PN: Obj Da - Labs CBC & Chem 7: 10/06/17 08:59 10/06/17 08:59 Labs: Abnormal Lab Results 10/06/17 10/06/17 10/05/17 08:59 08:59 09:30 WBC 15.4 H RBC 3.83 L MCV 100.3 H RDW 15.2 H Seg Neutrophils % Lymphocytes % RBC Morphology Macrocytosis VBG Lactic Acid 6.7 H* Carbon Dioxide Anion Gap Glucose 128 H Calcium GGT 76 H Lactate Dehydrogenase NT-Pro-B Natriuret Pep Triglycerides 199 H 10/05/17 10/05/17 10/04/17 04:00 04:00 16:00 WBC 11.8 H RBC 3.59 L MCV 101.0 H RDW 15.3 H Seg Neutrophils % 95 H Lymphocytes % 4 L RBC Morphology Abnorm A Macrocytosis 1+ A VBG Lactic Acid 4.6 H* Carbon Dioxide 21 L Anion Gap 19.0 H Glucose 241 H Calcium 8.5 L GGT 76 H Lactate Dehydrogenase 252 H NT-Pro-B Natriuret Pep Triglycerides 10/04/17 10/04/17 10/04/17 09:44 09:44 09:44 WBC 16.1 H RBC 3.95 L MCV RDW 15.0 H Seg Neutrophils % Lymphocytes % 7 L RBC Morphology Macrocytosis VBG Lactic Acid 3.6 H Carbon Dioxide Anion Gap 17.0 H Glucose 168 H Calcium GGT Lactate Dehydrogenase NT-Pro-B Natriuret Pep 589.2 H Triglycerides Meds: Medications Acetaminophen (Tylenol) 650 mg PO Q6HP PRN PRN Reason: PAIN/FEVER > 101 Hydrocodone Bitart/Acetaminophen ([place] 10/325mg) 1 tab PO Q4HP PRN PRN Reason: Pain Last Admin: 10/05/17 09:07 Dose: 1 tab Albuterol/Ipratropium (Duoneb) 3 ml NEB Q6HP PRN PRN Reason: Shortness Of Breath Amlodipine Besylate (Norvasc) 10 mg PO DAILY [facility] Last Admin: 10/05/17 09:08 Dose: Not Given Aspirin (Ecotrin) 325 mg PO DAILY [facility] Last Admin: 10/05/17 08:33 Dose: 325 mg Baclofen (Lioresal) 10 mg PO Q6HP PRN PRN Reason: Muscle Spasticity Last Admin: 10/05/17 15:32 Dose: 10 mg Clonidine HCl (Catapres) 0.2 mg PO HS [facility] Last Admin: 10/05/17 20:45 Dose: 0.2 mg Dabigatran (Pradaxa) 75 mg PO BID [facility] Last Admin: 10/05/17 22:43 Dose: 75 mg Docusate Sodium (Colace) 100 mg PO BID [facility] Last Admin: 10/05/17 20:46 Dose: Not Given Escitalopram Oxalate (Lexapro) 5 mg PO DAILY [facility] Last Admin: 10/05/17 08:32 Dose: 5 mg Folic Acid (Folic Acid) 1 mg PO DAILY [facility] Last Admin: 10/05/17 08:33 Dose: 1 mg Furosemide (Lasix) 40 mg PO DAILY [facility] Last Admin: 10/05/17 08:30 Dose: 40 mg Gabapentin (Neurontin) 300 mg PO [facility] Last Admin: 10/05/17 20:46 Dose: 300 mg Gabapentin (Neurontin) 200 mg PO BID [facility] Last Admin: 10/05/17 20:46 Dose: 200 mg Guaifenesin/Codeine Phosphate (Robitussin Ac) 10 ml PO Q4HP PRN PRN Reason: Cough Hydromorphone HCl (Dilaudid) 0 mg IV Q2HP PRN PRN Reason: PAIN LEVEL > 6 Last Admin: 10/06/17 08:42 Dose: 0.5 mg Piperacillin Sod/Tazobactam (Sod 3.375 gm/ Dextrose) 50 mls @ 100 mls/hr IV Q8H [facility] Last Admin: 10/06/17 06:04 Dose: 100 mls/hr Magnesium Sulfate (Magnesium Sulfate) 2 gm in 50 mls @ 50 mls/hr IV UD PRN PRN Reason: MG = or < 1.7 Acetaminophen (Ofirmev) 1,000 mg in 100 mls @ 200 mls/hr IV Q6HP PRN PRN Reason: PAIN/FEVER > 101 Vancomycin HCl 1,500 mg/ (Sodium Chloride) 500 mls @ 333.3 mls/hr IV Q24H [facility] Last Infusion: 10/05/17 11:18 Dose: Infused Sodium Chloride (Sodium Chloride 0.9%) 1,000 mls @ 50 mls/hr IV .Q20H [facility] Stop: 10/07/17 05:29 Last Admin: 10/05/17 13:30 Dose: 50 mls/hr Lorazepam (Ativan) 0.5 mg PO HSP PRN PRN Reason: Insomnia Misoprostol (Cytotec) 100 mcg PO ACB [facility] Last Admin: 10/05/17 08:30 Dose: 100 mcg Naloxone HCl (Narcan) 0.1 mg IV Q2MIN PRN PRN Reason: Opiate Reversal Ondansetron HCl (Zofran) 4 mg IV Q4HP PRN PRN Reason: Nausea And Vomiting Oxycodone/Acetaminophen (Percocet 5-325 Mg) 1 tab PO Q4HP PRN PRN Reason: Pain Potassium Chloride (Klor-Con) 40 meq PO DAILYP PRN PRN Reason: K+ < 3.5 Prednisone (Prednisone) 10 mg PO QAC [facility] Last Admin: 10/05/17 08:30 Dose: 10 mg Senna/Docusate Sodium (Senna Plus Tablet) 1 tab PO [facility] Last Admin: 10/05/17 20:46 Dose: 1 tab Simethicone (Mylicon) 80 mg PO TIDP PRN PRN Reason: GAS Sodium Chloride (Saline Flush) 10 ml IV Q8 [facility] Last Admin: 10/06/17 06:04 Dose: 10 ml Trazodone HCl (Desyrel) 50 mg PO [facility] Last Admin: 10/05/17 20:46 Dose: 50 mg Vancomycin HCl (Vancomycin Per Pharmacy) 1 order IV UD [facility] Medical - PN: A/P - Time Spent With Patient Total time spent is greater than 50% in coordination of care (as documented) at patient's floor/unit and/or counseling patient: 25 - 35 minutes (1) Nosocomial pneumonia Status: Acute Assessment and plan: * Nosocomial pneumonia clinically deteriorating-white count 15.4, elevated lactate.on broad empiric antibiotics * Severe sepsis -worsening leukocytosis/venous lactate. continue treatment per protocol. Map at goal\ * Intermittent chest and abdominal pain-abdominal chest imaging * dyspnea continue bronchodilators/steroids * History of CVA on Pradaxa * Hypertension-hold amlodipine/Clonidine in light of sepsis * neuropathy/spasms on gabapentin/baclofen * history of polymyalgia rheumatica on prednisone * dVT prophylaxis continue Pradaxa Plan * Broad antibiotic coverage * await abdominal and chest x-ray * sepsis management per guidelines * Pre-existing medical condition management on home meds * Hold antihypertensives until sepsis improves Current Visit: Yes Medical - PN: Qual - VTE Deep Vein Thrombosis/Pulmonary Embolism Present on Admission: No
--- NOTE | 2017-10-06 09:53 | XRay Report ---
HISTORY: Reason for Exam:Abdominal pain/distension FINDINGS: A moderate amount stool is present in the colon. There is moderate impaction in the rectum. Above the rectum the colon is not abnormally distended. Small bowel is decompressed. There are vascular calcifications in the abdomen and pelvis. The bones are osteopenic. There is an old healed right hip fracture. IMPRESSION: Fecal impaction Interpreted and Authenticated by: Gary Patiño 10/06/17
--- NOTE | 2017-10-06 10:09 | XRay Report ---
HISTORY: Reason for Exam:Interval Change- SOB FINDINGS: Increased interstitial lung markings are present throughout both lungs. The greatest involvement is above the diaphragms. There has been improvement since 10/04/17. Lung volumes are normal. There is no lobar consolidation, mass or pleural effusion. Heart size is upper limits of normal and there are calcifications in the mitral annulus. IMPRESSION: Improving interstitial lung disease bilaterally. This may be a combination of pulmonary fibrosis and an improving superimposed active inflammatory process. Interpreted and Authenticated by: Gary Patiño 10/06/17
[2017-10-06 10:26] LABS: Band Neutrophils % 2 % (0-10); Lymphocytes % 22 % (15-49); Macrocytosis 1+ (NONE SEEN); Monocytes % (Manual) 4 % (1-12); Platelet Estimate NORMAL (NORMAL); RBC Morphology ABNORM (NORMAL); Segmented Neutrophils % 72 % (38-78)
[2017-10-06] MEDS: amLODIPine 5 MG TABLET PO SCH (11:30)
[2017-10-06] MEDS: predniSONE 10 MG TABLET PO SCH (11:30)
[2017-10-06] MEDS: ASPIRIN 325 MG ENTERIC COATED TABLET PO SCH (11:30)
[2017-10-06] MEDS: GABAPENTIN 100 MG CAPSULE PO SCH ×2 (11:31→20:35)
[2017-10-06] MEDS: MISOPROSTOL 100 MCG TABLET PO SCH (11:32)
[2017-10-06] MEDS: DABIGATRAN ETEXILATE MESYLATE 75 MG CAPSULE PO SCH ×2 (11:32→20:35)
[2017-10-06] MEDS: DOCUSATE SODIUM 100 MG CAPSULE PO SCH ×2 (11:32→20:36)
[2017-10-06] MEDS: FUROSEMIDE 40 MG TABLET PO SCH (11:32)
[2017-10-06] MEDS: FOLIC ACID 1 MG TABLET PO SCH (11:32)
[2017-10-06] MEDS: ESCITALOPRAM 10 MG TABLET PO SCH (11:32)
[2017-10-06] MEDS: VANCOMYCIN 1,500 MG in 0.9 % SODIUM CHLORIDE 500 ML IV SCH (11:33)
[2017-10-06] MEDS: 0.9 % SODIUM CHLORIDE 1,000 ML IV SCH (12:25)
[2017-10-06] MEDS: MAGNESIUM CITRATE 300 ML ORAL.SOL PO SCH (12:47)
[2017-10-06] MEDS: SENNOSIDES/DOCUSATE SODIUM 1 TAB TABLET PO SCH (20:32)
[2017-10-06] MEDS: BACLOFEN 10 MG TABLET PO PRN (20:33)
[2017-10-06] MEDS: cloNIDine HCL 0.1 MG TABLET PO SCH (20:33)
[2017-10-06] MEDS: GABAPENTIN 300 MG CAPSULE PO SCH (20:34)
[2017-10-06] MEDS: traZODone HCL 50 MG TABLET PO SCH (20:35)
[2017-10-06] MEDS: HYDROcodone/APAP 10/325MG TABLET PO PRN (20:36)
[2017-10-07] MEDS: HYDROmorphone 2 MG/ML VIAL IV PRN ×2 (01:19→13:21)
[2017-10-07] MEDS: HYDROcodone/APAP 10/325MG TABLET PO PRN ×2 (02:19→21:12)
[2017-10-07 04:47] LABS: Mean Cell Volume 100.4 fL (80.0-100.0); Mean Corpuscular HGB Conc 33.5 g/dL (31.0-36.0); Mean Corpuscular Hemoglobin 33.6 pg (26.0-34.0); Platelet Count 202 K/mcL (140-440); RBC 3.53 M/mcL (4.00-5.20); Red Cell Distribution Width 15.1 % (11.5-14.5)
[2017-10-07 05:24] LABS: ALT/SGPT 23 U/l (0-40); Albumin 3.3 gm/dL (3.2-5.2); Albumin/Globulin Ratio 1.1 (1.0-2.3); Alkaline Phosphatase 58 U/L (39-117); Bilirubin,Direct < 0.2 mg/dL (0.0-0.3); Blood Urea Nitrogen 23 mg/dl (8-23); Gamma Glutamyl Transpeptidase 70 U/L (5-36); Uric Acid 6.8 mg/dL (2.5-8.0)
[2017-10-07] MEDS: 0.9 % SODIUM CHLORIDE 10 ML SYRINGE IV SCH ×3 (05:27→21:12)
[2017-10-07] MEDS: PIPERACILLIN SODIUM/TAZOBACTAM 3.375 GM in DEXTROSE 5% IN WATER 50 ML IV SCH ×3 (05:29→21:13)
[2017-10-07 05:37] LABS: Eosinophils % (Manual) 2 % (0-7); Lymphocytes % 14 % (15-49); Macrocytosis 1+ (NONE SEEN); Monocytes % (Manual) 7 % (1-12); Platelet Estimate NORMAL (NORMAL); RBC Morphology ABNORM (NORMAL); Segmented Neutrophils % 77 % (38-78)
[2017-10-07] MEDS ORDERED: VANCOMYCIN 1,000 MG in 0.9 % SODIUM CHLORIDE 250 ML IV SCH (10:00)
[2017-10-07] MEDS: amLODIPine 5 MG TABLET PO SCH (11:05)
[2017-10-07] MEDS: ESCITALOPRAM 10 MG TABLET PO SCH (11:05)
[2017-10-07] MEDS: MISOPROSTOL 100 MCG TABLET PO SCH (11:06)
[2017-10-07] MEDS: GABAPENTIN 100 MG CAPSULE PO SCH ×2 (11:06→21:12)
[2017-10-07] MEDS: ASPIRIN 325 MG ENTERIC COATED TABLET PO SCH (11:06)
[2017-10-07] MEDS: DABIGATRAN ETEXILATE MESYLATE 75 MG CAPSULE PO SCH ×2 (11:06→21:11)
[2017-10-07] MEDS: FOLIC ACID 1 MG TABLET PO SCH (11:06)
[2017-10-07] MEDS: FUROSEMIDE 40 MG TABLET PO SCH (11:06)
[2017-10-07] MEDS: DOCUSATE SODIUM 100 MG CAPSULE PO SCH ×2 (11:06→21:12)
[2017-10-07] MEDS: predniSONE 10 MG TABLET PO SCH (11:06)
[2017-10-07] MEDS ORDERED: MAGNESIUM CITRATE 300 ML ORAL.SOL PO STA (11:18)
[2017-10-07] MEDS: MAGNESIUM CITRATE 300 ML ORAL.SOL PO SCH (11:30)
[2017-10-07] MEDS ORDERED: oxyCODONE/APAP 5/325MG TABLET PO PRN (13:47)
[2017-10-07] MEDS ORDERED: BACLOFEN 10 MG TABLET PO PRN (13:47)
[2017-10-07] MEDS ORDERED: SIMETHICONE 80 MG TAB.CHEW PO PRN (13:47)
[2017-10-07] MEDS ORDERED: IPRATROPIUM/ALBUTEROL 3 ML AMPUL.NEB NEB PRN (13:47)
[2017-10-07] MEDS ORDERED: VANCOMYCIN PER PHARMACY IV SCH (13:47)
[2017-10-07] MEDS ORDERED: ACETAMINOPHEN 325 MG TABLET PO PRN (13:47)
[2017-10-07] MEDS ORDERED: MAGNESIUM SULFATE 2 GM/50 ML BAG IV PRN (13:47)
[2017-10-07] MEDS ORDERED: ONDANSETRON 4 MG/2 ML VIAL IV PRN (13:47)
[2017-10-07] MEDS ORDERED: HYDROmorphone 2 MG/ML VIAL IV PRN (13:47)
[2017-10-07] MEDS ORDERED: guaiFENesin/CODEINE 10 ML UDC PO PRN (13:47)
[2017-10-07] MEDS ORDERED: POTASSIUM CHLORIDE 20 MEQ PACKET PO PRN (13:47)
[2017-10-07] MEDS ORDERED: ACETAMINOPHEN 1,000 MG/100 ML BOTTLE IV PRN (13:47)
[2017-10-07] MEDS ORDERED: NALOXONE HCL 0.4 MG/ML VIAL IV PRN (13:47)
--- NOTE | 2017-10-07 15:33 | Internal Med Progress Note ---
Medical - PN: Subj Patient information: Note initiated : 10/07/17 at 3:33 pm Service Date, if different from initiated Date: [] Patient: January Torres 81 y/o F admitted on 10/04/17 for Shortness of Breath/Pneumonia. Chief Complaint: [] Interval history: patient admitted with healthcare associated pneumonia/shortness of breath/ sepsis. started on broad antibiotic coverage for nosocomial pneumonia.elevated lactate 4.6 with white count 16.1. ABG 7.42/41/83. CURB 65 score 3/ PSI 100 10/05-patient doing well. No overnight events. sepsis clinically improving. Improved work of breathing. aphasia from previous stroke. no family at bedside. No telemetry events except for frequent PACs. White count down to 11,800. continue broad antibiotic coverage. 10/06- no significant change since previous day. White count uptrending at 15, 000. Lactic acid uptrending. On broad antibiotic coverage. Chest and abdominal imaging pending. Patient experiences frequent cramping and pain involving chest and abdomen requiring IV opioids. Afebrile. no telemetry events. 10/07-patient had a large bowel movement with a subsequent improvement in abdominal pain. White count downtrending at 12.3. No overnight fever chills or shortness of breath. No telemetry events. Ongoing physical therapy. Transfer to medical floor today. Possible discharge in 24-48 hours if continues to improve clinically. lactic acid down to 2.8 from 6.7. - Constitutional Vitals: Vital Signs Temp Pulse Resp BP Pulse Ox 97.8 F 70 22 162/87 98 10/07/17 11:50 10/06/17 20:00 10/07/17 11:50 10/07/17 11:50 10/07/17 14:27 Period Temp Pulse Resp BP Sys/Roberts Pulse Ox Last 24 Hr 97.6 F-98.3 F 70 16-22 118-162/59-124 91-100 Intake and Output 10/07/17 10/07/17 10/07/17 05:59 13:59 21:59 Intake Total 50 / 50 300 / 300 Output Total 375 / 375 Balance -325 / -325 300 / 300 Intake & Output: Intake & Output 10/07/17 10/07/17 10/07/17 05:59 13:59 21:59 Intake Total 50 / 50 300 / 300 Output Total 375 / 375 Balance -325 / -325 300 / 300 Intake: IV 50 / 50 300 / 300 Zosyn 3.375 gm In Dextrose 5% 50 / 50 50 / 50 in Water 50 ml @ 100 mls/hr IV Q8H [facility] Rx#:[id number] Vancomycin 1,000 mg In Sodium 250 / 250 Chloride 0.9% 250 ml @ 250 mls/ hr IV DAILY [facility] Rx#:[id number] Output: Urine Catheter Amount 375 / 375 General appearance: no acute distress Exam: resting comfortably No abdominal distention nonlabored breathing No telemetry events Medical - PN: Obj Da - Labs CBC & Chem 7: 10/07/17 03:50 10/07/17 03:50 Labs: Abnormal Lab Results 10/07/17 10/07/17 10/06/17 03:50 03:50 10:25 WBC 12.3 H RBC 3.53 L Hgb 11.9 L Hct 35.4 L MCV 100.4 H RDW 15.1 H Seg Neutrophils % Lymphocytes % 14 L RBC Morphology Abnorm A Macrocytosis 1+ A VBG Lactic Acid 2.8 H Sodium 146 H Carbon Dioxide Anion Gap Glucose 123 H Calcium 8.4 L GGT 70 H Lactate Dehydrogenase Triglycerides 194 H 10/06/17 10/06/17 10/05/17 08:59 08:59 09:30 WBC 15.4 H RBC 3.83 L Hgb Hct MCV 100.3 H RDW 15.2 H Seg Neutrophils % Lymphocytes % RBC Morphology Abnorm A Macrocytosis 1+ A VBG Lactic Acid 6.7 H* Sodium Carbon Dioxide Anion Gap Glucose 128 H Calcium GGT 76 H Lactate Dehydrogenase Triglycerides 199 H 10/05/17 10/05/17 10/04/17 04:00 04:00 16:00 WBC 11.8 H RBC 3.59 L Hgb Hct MCV 101.0 H RDW 15.3 H Seg Neutrophils % 95 H Lymphocytes % 4 L RBC Morphology Abnorm A Macrocytosis 1+ A VBG Lactic Acid 4.6 H* Sodium Carbon Dioxide 21 L Anion Gap 19.0 H Glucose 241 H Calcium 8.5 L GGT 76 H Lactate Dehydrogenase 252 H Triglycerides Meds: Medications Acetaminophen (Tylenol) 650 mg PO Q6HP PRN PRN Reason: PAIN/FEVER > 101 Hydrocodone Bitart/Acetaminophen ([place] 10/325mg) 1 tab PO Q4HP PRN PRN Reason: Pain Albuterol/Ipratropium (Duoneb) 3 ml NEB Q6HP PRN PRN Reason: Shortness Of Breath Amlodipine Besylate (Norvasc) 10 mg PO DAILY [facility] Aspirin (Ecotrin) 325 mg PO DAILY [facility] Baclofen (Lioresal) 10 mg PO Q6HP PRN PRN Reason: Muscle Spasticity Clonidine HCl (Catapres) 0.2 mg PO HS [facility] Dabigatran (Pradaxa) 75 mg PO BID [facility] Docusate Sodium (Colace) 100 mg PO BID [facility] Escitalopram Oxalate (Lexapro) 5 mg PO DAILY [facility] Folic Acid (Folic Acid) 1 mg PO DAILY [facility] Furosemide (Lasix) 40 mg PO DAILY [facility] Gabapentin (Neurontin) 300 mg PO HS [facility] Gabapentin (Neurontin) 200 mg PO BID [facility] Guaifenesin/Codeine Phosphate (Robitussin Ac) 10 ml PO Q4HP PRN PRN Reason: Cough Hydromorphone HCl (Dilaudid) 0 mg IV Q2HP PRN PRN Reason: PAIN LEVEL > 6 Magnesium Sulfate (Magnesium Sulfate) 2 gm in 50 mls @ 50 mls/hr IV UD PRN PRN Reason: MG = or < 1.7 Acetaminophen (Ofirmev) 1,000 mg in 100 mls @ 200 mls/hr IV Q6HP PRN PRN Reason: PAIN/FEVER > 101 Piperacillin Sod/Tazobactam (Sod 3.375 gm/ Dextrose) 50 mls @ 100 mls/hr IV Q8H [facility] Last Admin: 10/07/17 14:52 Dose: 100 mls/hr Vancomycin HCl 1,000 mg/ (Sodium Chloride) 250 mls @ 250 mls/hr IV DAILY [facility] Lorazepam (Ativan) 0.5 mg PO HSP PRN PRN Reason: Insomnia Misoprostol (Cytotec) 100 mcg PO ACB [facility] Naloxone HCl (Narcan) 0.1 mg IV Q2MIN PRN PRN Reason: Opiate Reversal Ondansetron HCl (Zofran) 4 mg IV Q4HP PRN PRN Reason: Nausea And Vomiting Potassium Chloride (Klor-Con) 40 meq PO DAILYP PRN PRN Reason: K+ < 3.5 Prednisone (Prednisone) 10 mg PO QAC [facility] Senna/Docusate Sodium (Senna Plus Tablet) 1 tab PO HS [facility] Simethicone (Mylicon) 80 mg PO TIDP PRN PRN Reason: GAS Sodium Chloride (Saline Flush) 10 ml IV Q8 [facility] Last Admin: 10/07/17 14:52 Dose: 10 ml Trazodone HCl (Desyrel) 50 mg PO HS [facility] Vancomycin HCl (Vancomycin Per Pharmacy) 1 order IV UD [facility] Medical - PN: A/P - Time Spent With Patient Total time spent is greater than 50% in coordination of care (as documented) at patient's floor/unit and/or counseling patient: 15 - 24 minutes (1) Nosocomial pneumonia Status: Acute Assessment and plan: * Nosocomial pneumonia- Downtrending white count. Clinical improvement noted. Continue broad empiric antibiotics * Severe sepsis -clinically resolved * Intermittent abdominal pain-secondary to fecal impaction. Clinically improved post manual disimpaction. * dyspnea continue bronchodilators/steroids * History of CVA on Pradaxa * Hypertension-continue amlodipine/Clonidine * neuropathy/spasms on gabapentin/baclofen * history of polymyalgia rheumatica on prednisone * dVT prophylaxis continue Pradaxa Plan * continue antibiotic coverage * Pre-existing medical condition management on home meds * transfer to medical floor * ossible discharge to SNF in 24 hours Current Visit: Yes Medical - PN: Qual - VTE Deep Vein Thrombosis/Pulmonary Embolism Present on Admission: No
[2017-10-07] MEDS ORDERED: SENNOSIDES/DOCUSATE SODIUM 1 TAB TABLET PO SCH (21:00)
[2017-10-07] MEDS ORDERED: LORazepam 0.5 MG TABLET PO PRN (21:00)
[2017-10-07] MEDS ORDERED: traZODone HCL 50 MG TABLET PO SCH (21:00)
[2017-10-07] MEDS ORDERED: GABAPENTIN 300 MG CAPSULE PO SCH (21:00)
[2017-10-07] MEDS ORDERED: cloNIDine HCL 0.1 MG TABLET PO SCH (21:00)
[2017-10-08] MEDS: PIPERACILLIN SODIUM/TAZOBACTAM 3.375 GM in DEXTROSE 5% IN WATER 50 ML IV SCH (05:31)
[2017-10-08] MEDS: 0.9 % SODIUM CHLORIDE 10 ML SYRINGE IV SCH (05:31)
[2017-10-08 05:54] LABS: Mean Cell Volume 99.9 fL (80.0-100.0); Platelet Count 194 K/mcL (140-440); RBC 3.43 M/mcL (4.00-5.20); Red Cell Distribution Width 14.6 % (11.5-14.5)
[2017-10-08 06:29] LABS: ALT/SGPT 21 U/l (0-40); Albumin 2.8 gm/dL (3.2-5.2); Albumin/Globulin Ratio 0.9 (1.0-2.3); Alkaline Phosphatase 54 U/L (39-117); Bilirubin,Direct < 0.2 mg/dL (0.0-0.3); Blood Urea Nitrogen 15 mg/dl (8-23); Gamma Glutamyl Transpeptidase 72 U/L (5-36)
[2017-10-08] MEDS ORDERED: MISOPROSTOL 100 MCG TABLET PO SCH (07:30)
[2017-10-08 07:51] LABS: Eosinophils % (Manual) 4 % (0-7); Lymphocytes % 26 % (15-49); Metamyelocytes % 1 % (0-0); Monocytes % (Manual) 5 % (1-12); Platelet Estimate NORMAL (NORMAL); RBC Morphology NORMAL (NORMAL); Segmented Neutrophils % 64 % (38-78)
[2017-10-08] MEDS ORDERED: predniSONE 10 MG TABLET PO SCH (08:00)
[2017-10-08] MEDS ORDERED: FUROSEMIDE 40 MG TABLET PO SCH (09:00)
[2017-10-08] MEDS ORDERED: amLODIPine 5 MG TABLET PO SCH (09:00)
[2017-10-08] MEDS ORDERED: FOLIC ACID 1 MG TABLET PO SCH (09:00)
[2017-10-08] MEDS ORDERED: VANCOMYCIN 1,000 MG in 0.9 % SODIUM CHLORIDE 250 ML IV SCH (09:00)
[2017-10-08] MEDS ORDERED: ASPIRIN 325 MG ENTERIC COATED TABLET PO SCH (09:00)
[2017-10-08] MEDS ORDERED: ESCITALOPRAM 10 MG TABLET PO SCH (09:00)
[2017-10-08] MEDS: DABIGATRAN ETEXILATE MESYLATE 75 MG CAPSULE PO SCH (09:02)
[2017-10-08] MEDS: GABAPENTIN 100 MG CAPSULE PO SCH (09:03)
[2017-10-08] MEDS: HYDROcodone/APAP 10/325MG TABLET PO PRN ×2 (09:04→13:02)
[2017-10-08] MEDS: DOCUSATE SODIUM 100 MG CAPSULE PO SCH (09:04)
--- NOTE | 2017-10-08 10:57 | Discharge Summary ---
Medical - DS: Prov Patient information: Note initiated : 10/08/17 at 10:54 am Service Date, if different from initiated Date: [] Patient: January Torres 81 y/o F admitted on 10/04/17 for Shortness of Breath/Pneumonia. Chief Complaint: [] Date of admission: 10/04/17 15:28 Discharge date: 10/08/17 Primary care physician: Guille Arriaga Consults: 10/04/17 12:19 Consult to Physician [CONS] Stat Comment: Consulting Provider: Ese Pacheco Reason For Exam: Physician to Consult 10/07/17 14:13 Consult to Physician [CONS] Routine Comment: Consulting Provider: [facility] Reason For Exam: Physician to Consult Medical - DS: Meds - Discharge Medications Prescriptions: Amoxicillin/Potassium Clav [Augmentin] 875 mg PO Q12H #10 tab Active and Home Medications: Home Medications Gabapentin [Neurontin] 200 mg PO BID 11/02/16 [History Confirmed 10/04/17 Last Taken 08/06/17] Ipratropium/Albuterol [Duoneb] 3 ml NEB Q6HP PRN 11/02/16 [History Confirmed 04/15 Last Taken Unknown] Simethicone [Gas-X] 80 mg PO TID PRN 11/02/16 [History Confirmed 10/04/17 Last Taken Unknown] amLODIPine [Norvasc] 10 mg PO DAILY 11/02/16 [History Confirmed 10/04/17 Last Taken 08/06/17] cloNIDine HCL [Catapres] 0.2 mg PO HS 11/02/16 [History Confirmed 10/04/17 Last Taken Unknown] Acetaminophen [Tylenol] 650 mg PO Q6HP PRN #0 tablet 11/06/16 [Rx Confirmed 04/15 Last Taken Unknown] Baclofen [Lioresal] 10 mg PO Q6HP PRN #0 tablet 11/06/16 [Rx Confirmed 10/04/17 Last Taken Unknown] Calcium W/Vit D3 500 mg PO BID tablet 11/06/16 [Rx Confirmed 10/04/17 Last Taken Unknown] Docusate Sodium [Colace] 100 mg PO BID capsule 11/06/16 [Rx Confirmed 10/04/17 Last Taken Unknown] HYDROcodone/APAP 10/325MG [[place] 10-325Mg] 1 - 2 tab PO Q4HP PRN #30 tablet 06/14 [Rx Confirmed 10/04/17 Last Taken Unknown] LORazepam [Ativan] 0.5 mg PO HSP PRN #20 tablet 11/06/16 [Rx Confirmed 10/04/17 Last Taken Unknown] Magnesium Hydroxide [Milk of Magnesia] 30 ml PO DAILYP PRN #0 oral.susp [Rx Confirmed 10/04/17 Last Taken Unknown] Calcitonin [Miacalcin] 1 spray NS DAILY 08/07/17 [History Confirmed 10/04/17 Last Taken 08/06/17] Cholecalciferol (Vitamin D3) [D3 Dots] 2,000 unit PO DAILY 08/07/17 [History Confirmed 10/04/17 Last Taken 08/06/17] Dabigatran Etexilate Mesylate [Pradaxa] 75 mg PO BID 08/07/17 [History Confirmed 10/04/17 Last Taken 08/06/17] Escitalopram [Lexapro] 5 mg PO DAILY 08/07/17 [History Confirmed 10/04/17 Last Taken 08/06/17] Folic Acid 1 mg PO DAILY 08/07/17 [History Confirmed 10/04/17 Last Taken ] Gabapentin [Neurontin] 300 mg PO HS 08/07/17 [History Confirmed 10/04/17 Last Taken 08/06/17] Misoprostol [Cytotec] 100 mcg PO ACB 08/07/17 [History Confirmed 10/04/17 Last Taken 08/06/17] Multivitamin [One Daily] 1 tab PO DAILY 08/07/17 [History Confirmed 10/04/17 Last Taken 08/06/17] Zinc Gluconate [Zinc] 50 mg PO TU@0900 08/07/17 [History Confirmed 10/04/17 Last Taken 08/06/17] predniSONE [Prednisone] 10 mg PO QAC 08/07/17 [History Confirmed 10/04/17 Last Taken 08/06/17] Aspirin [Ecotrin] 325 mg PO DAILY tab.ec 08/09/17 [Rx Confirmed 10/04/17 Last Taken Unknown] Furosemide [Lasix] 40 mg PO DAILY #90 tab 08/09/17 [Rx Confirmed 10/04/17 Last Taken Unknown] traZODone HCL [Desyrel] 50 mg PO HS 10/04/17 [History Confirmed 10/04/17 Last Taken Unknown] Amoxicillin/Potassium Clav [Augmentin] 875 mg PO Q12H #10 tab 10/08/17 [Rx Last Taken Unknown] Medical - DS: Hosp Hospital course: DISCHARGE DIAGNOSIS * Nosocomial pneumonia- Downtrending white count. Clinical improvement noted.ontinue additional 5 days oral Augmentin * Severe sepsis -clinically resolved * Intermittent abdominal pain-secondary to fecal impaction. clinically resolved post disimpaction * dyspnea continue bronchodilators/steroids * History of CVA on Pradaxa * Hypertension-continue amlodipine/Clonidine * neuropathy/spasms on gabapentin/baclofen * history of polymyalgia rheumatica on prednison [facility] Mr. Torres is a 81 year old F admitted with healthcare associated pneumonia/ shortness of breath/sepsis. started on broad antibiotic coverage for nosocomial pneumonia.elevated lactate 4.6 with white count 16.1. ABG 7.42/41/83. CURB 65 score 3/ PSI 100 10/05-patient doing well. No overnight events. sepsis clinically improving. Improved work of breathing. aphasia from previous stroke. no family at bedside. No telemetry events except for frequent PACs. White count down to 11,800. continue broad antibiotic coverage. 10/06- no significant change since previous day. White count uptrending at 15, 000. Lactic acid uptrending. On broad antibiotic coverage. Chest and abdominal imaging pending. Patient experiences frequent cramping and pain involving chest and abdomen requiring IV opioids. Afebrile. no telemetry events. 10/07-patient had a large bowel movement with a subsequent improvement in abdominal pain. White count downtrending at 12.3. No overnight fever chills or shortness of breath. No telemetry events. Ongoing physical therapy. Transfer to medical floor today. Possible discharge in 24-48 hours if continues to improve clinically. lactic acid down to 2.8 from 6.7. -patient doing well. No overnight events. No concerns per staff. Transferring to SNF with continued antibiotics for additional 5 days. Detailed discharge instructions as below. Discharge diagnosis: . - Time Spent with Patient Total time spent providing and/or coordinating discharge services: Greater than 30 minutes Medical - DS: Exam - Constitutional Vitals: Vital Signs Temp Pulse Resp BP BP BP Pulse Ox 10/08/17 07:14 96.0 F L 56 L 18 137/67 93 10/08/17 04:00 98.6 F 51 L 18 127/66 91 10/07/17 23:17 97.3 F 52 L 20 96/55 91 10/07/17 20:00 97.6 F 63 20 150/71 91 10/07/17 16:00 98.4 F 16 128/87 96 10/07/17 14:27 98 10/07/17 13:50 98.3 F 66 14 116/84 98 10/07/17 11:50 97.8 F 22 162/87 98 Intake and Output 10/07/17 10/08/17 10/08/17 21:59 05:59 13:59 Intake Total 190 / 190 230 / 230 50 / 50 Output Total 1500 / 1500 50 / 50 Balance -1310 / -1310 180 / 180 50 / 50 Intake: IV 150 / 150 50 / 50 50 / 50 Zosyn 3.375 gm In Dextrose 5% 50 / 50 50 / 50 50 / 50 in Water 50 ml @ 100 mls/hr IV Q8H [facility] Rx#:[id number] Oral 40 / 40 180 / 180 Output: Urine Catheter Amount 1500 / 1500 50 / 50 Other: Meal Nourishment/Supplement Percent of Meal Consumed 50% Feeding Ability Total Assistance Weight 207 lb 8 oz Medical - DS: Data Labs on day of discharge: Labs from last 24 hours 10/08/17 10/08/17 10/08/17 09:55 08:32 04:07 WBC RBC Hgb Hct MCV MCH MCHC RDW Plt Count MPV Total Counted Seg Neutrophils % Band Neutrophils % Lymphocytes % Monocytes % (Manual) Eosinophils % (Manual) Metamyelocytes % Platelet Estimate RBC Morphology Sodium 143 Potassium 3.8 Chloride 104 Carbon Dioxide 27 Anion Gap 12.0 BUN 15 Creatinine 1.0 GFR Calculation 52 Glucose 93 Uric Acid 6.0 Calcium 8.3 L Phosphorus 2.6 L Magnesium 2.4 Total Bilirubin 0.3 Direct Bilirubin < 0.2 GGT 72 H AST 20 ALT 21 Alkaline Phosphatase 54 Lactate Dehydrogenase 214 Total Protein 5.8 L Albumin 2.8 L Globulin 3.0 Albumin/Globulin Ratio 0.9 L Triglycerides 178 H Vancomycin Trough 17.7 Legionella Antibody Pending 10/08/17 04:07 WBC 8.3 RBC 3.43 L Hgb 11.6 L Hct 34.2 L MCV 99.9 MCH 34.0 MCHC 34.0 RDW 14.6 H Plt Count 194 MPV 9.6 Total Counted 100 Seg Neutrophils % 64 Band Neutrophils % Not Reportable Lymphocytes % 26 Monocytes % (Manual) 5 Eosinophils % (Manual) 4 Metamyelocytes % 1 H Platelet Estimate Normal RBC Morphology Normal Sodium Potassium Chloride Carbon Dioxide Anion Gap BUN Creatinine GFR Calculation Glucose Uric Acid Calcium Phosphorus Magnesium Total Bilirubin Direct Bilirubin GGT AST ALT Alkaline Phosphatase Lactate Dehydrogenase Total Protein Albumin Globulin Albumin/Globulin Ratio Triglycerides Vancomycin Trough Legionella Antibody Preliminary micro results at discharge 10/04/17 09:50 Blood Culture - Preliminary Blood 10/04/17 10:00 Blood Culture - Preliminary Blood Medical - DS: A/P - Patient/Caregiver Discharge Instructions Activity: as per physical therapy, increase activity as tolerated Diet: Regular Diet Additional Instructions: Follow-up PCP in 5 days continue Pradaxa as before I recommend SNF physician to checkCBC BMP UA as a posthospital follow-up and Chest x-ray in 1 week. Antibiotics for 5 days Continue aggressive bowel regimen to prevent constipation Continue fall precautions Continue aggressive PT OT evaluation and treatment at . ST eval and treatment if indicated All meals on chair sitting upright at 90 degrees to prevent aspiration Return to ER if worsening fever chills shortness of breath, diarrhea, bleeding Review risk and side effect profile of medications including antibiotics. Side effect may include mild to severe reaction including rash, diarrhea, cdiff and even which can be prevented by close follow-up with PCP and monitoring for side effects Continue diet and activity as advised Discussed importance of medication adherence Please review medication list with patient prior to discharge Please schedule follow-up with PCP/Providers prior to discharge and provide printouts Portions of this chart may have been created with [employer] voice recognition software. Occasional wrong-word or ?sound-like? substitutions may have occurred due to the inherent limitations of voice recognition software. Please read the chart carefully and recognize, using context, where the substitutions have occurred. CC- PCP Prescriptions: Amoxicillin/Potassium Clav [Augmentin] 875 mg PO Q12H #10 tab - Problem Maintenance (1) Nosocomial pneumonia Status: Acute - Follow up Plan Follow up with: Guille Arriaga MD [Primary Care Provider] - Disposition: [facility] Prognosis: Fair Rehab Potential: Fair I certify that the patient requires SNF services: Yes Overall status at discharge: patient is back to baseline Medical - DS: Qual - VTE Deep Vein Thrombosis/Pulmonary Embolism Present on Admission: No
[2017-10-21 15:03] LABS: L. Pneumophila Type 1 IgG <1:64; L. Pneumophila Type 1 IgM <1:64; L. Pneumophila Type 2 IgG <1:64; L. Pneumophila Type 2 IgM <1:64; L. Pneumophila Type 3 IgG <1:64; L. Pneumophila Type 3 IgM <1:64; L. Pneumophila Type 4 IgG <1:64; L. Pneumophila Type 4 IgM <1:64; L. Pneumophila Type 5 IgG <1:64; L. Pneumophila Type 5 IgM <1:64; L. Pneumophila Type 6 IgG <1:64; L. Pneumophila Type 6 IgM <1:64
== END 2017-10-08 13:08 | DRG 871 ==
LOC: ED 09:25 → ICU 15:28 → MEDSUR 10-07 13:30
PROVIDERS: ADMIT Internal Medicine; ATTEND Internal Medicine

== ENCOUNTER 2018-02-01 21:22 | Inpatient (IN) ==
[2018-02-01] MEDS ORDERED: INSULIN REGULAR, HUMAN 1 UNIT/0.01 ML UNIT IV ONE (21:32)
[2018-02-01] MEDS ORDERED: 0.9 % SODIUM CHLORIDE 1,000 ML IV ONE (21:33)
[2018-02-01] MEDS ORDERED: INSULIN REGULAR, HUMAN 1 UNIT/0.01 ML UNIT ONE (21:36)
[2018-02-01] MEDS ORDERED: 0.9 % SODIUM CHLORIDE 2,000 ML IV ONE (21:45)
[2018-02-01] MEDS ORDERED: NALOXONE HCL 0.4 MG/ML VIAL IV ONE (21:45)
[2018-02-01] MEDS ORDERED: INSULIN REGULAR, HUMAN 50 UNIT in 0.9 % SODIUM CHLORIDE 99.5 ML IV SCH (22:00)
[2018-02-01 22:40] LABS: Basophils # (Auto) 0.1 K/mcL (0.0-0.3); Eosinophils # (Auto) 0.1 K/mcL (0.0-0.7); Eosinophils % (Auto) 0.5 % (0.0-7.0); Granulocytes % (Auto) 62.9 % (38.0-78.0); Lymphocytes # (Auto) 2.8 K/mcL (1.5-4.8); Lymphocytes % (Auto) 23.8 % (15.5-49.0); Mean Cell Volume 98.9 fL (80.0-100.0); Mean Corpuscular HGB Conc 33.3 g/dL (31.0-36.0); Monocytes # (Auto) 1.4 K/mcL (0.1-0.9); Monocytes % (Auto) 11.8 % (1.0-12.0); Platelet Count 217 K/mcL (140-440); RBC 4.78 M/mcL (4.00-5.20); Red Cell Distribution Width 13.7 % (11.5-14.5)
[2018-02-01] MEDS ORDERED: 0.45 % SODIUM CHLORIDE 1,000 ML IV SCH (23:05)
[2018-02-01] MEDS: 0.45 % SODIUM CHLORIDE 1,000 ML IV SCH (23:05)
[2018-02-01] MEDS ORDERED: INSULIN REGULAR, HUMAN 50 UNIT in 0.9 % SODIUM CHLORIDE 99.5 ML IV ONE (23:06)
[2018-02-01 23:07] LABS: ALT/SGPT 55 U/l (0-40); Albumin 3.8 gm/dL (3.2-5.2); Alkaline Phosphatase 102 U/L (39-117); Blood Urea Nitrogen 37 mg/dl (8-23); Creatine Kinase 52 IU/L (24-170)
[2018-02-01] MEDS ORDERED: PIPERACILLIN SODIUM/TAZOBACTAM 3.375 GM in DEXTROSE 5% IN WATER 50 ML IV ONE (23:35)
--- NOTE | 2018-02-01 23:46 | Emergency Department Note ---
Altered Mental Status HPI - General Chief Complaint: Altered Mental Status Stated Complaint: unresponsive Time Seen by Provider: 02/01/18 21:28 Source: patient, family, old records reviewed Mode of arrival: EMS Limitations: altered mental status - History of Present Illness HPI Narrative: 82-year-old female unresponsive all day at [facility]. Brought in for altered mental status. Totally unresponsive to any stimuli Reviewed old records and discussed with family. Last seen normal by family 3 days ago. At that time she was fatigued and feeling ill. Her baseline is with hemiparesis on the right status post prior CVA. She is totally a phasic and cannot communicate verbally Her [place] post form says that she is DNR comfort care but allowable is blood products IV fluids and antibiotics - Related Data Home Medications Medication Instructions Recorded Confirmed Gabapentin [Neurontin] 200 mg PO BID 11/02/16 02/01/18 Ipratropium/Albuterol [Duoneb] 3 ml NEB Q6HP PRN 11/02/16 02/01/18 Simethicone [Gas-X] 80 mg PO TID PRN 11/02/16 02/01/18 amLODIPine [Norvasc] 10 mg PO DAILY 11/02/16 02/01/18 cloNIDine HCL [Catapres] 0.2 mg PO HS 11/02/16 02/01/18 Calcitonin [Miacalcin] 1 spray NS DAILY 08/07/17 02/01/18 Cholecalciferol (Vitamin D3) [D3 2,000 unit PO DAILY 08/07/17 02/01/18 Dots] Dabigatran Etexilate Mesylate 75 mg PO BID 08/07/17 02/01/18 [Pradaxa] Escitalopram [Lexapro] 5 mg PO DAILY 08/07/17 02/01/18 Folic Acid 1 mg PO DAILY 08/07/17 02/01/18 Gabapentin [Neurontin] 300 mg PO HS 08/07/17 02/01/18 Misoprostol [Cytotec] 100 mcg PO ACB 08/07/17 02/01/18 Multivitamin [One Daily] 1 tab PO DAILY 08/07/17 02/01/18 Zinc Gluconate [Zinc] 50 mg PO TU@0900 08/07/17 02/01/18 predniSONE [Prednisone] 10 mg PO QAC 08/07/17 02/01/18 traZODone HCL [Desyrel] 50 mg PO HS 10/04/17 02/01/18 Baclofen [Lioresal] 10 mg PO BID 02/01/18 02/01/18 Omeprazole [PriLOSEC] 20 mg PO ACB 02/01/18 02/01/18 Previous Rx's Medication Instructions Recorded Acetaminophen [Tylenol] 650 mg PO Q6HP PRN #0 tablet 11/06/16 Calcium W/Vit D3 500 mg PO BID tablet 11/06/16 Docusate Sodium [Colace] 100 mg PO BID capsule 11/06/16 HYDROcodone/APAP 10/325MG [Armstrong 1 - 2 tab PO Q4HP PRN #30 tablet 11/06/16 10-325Mg] LORazepam [Ativan] 0.5 mg PO HSP PRN #20 tablet 11/06/16 Magnesium Hydroxide [Milk of 30 ml PO DAILYP PRN #0 oral.susp 11/06/16 Magnesia] Aspirin [Ecotrin] 325 mg PO DAILY tab.ec 08/09/17 Furosemide [Lasix] 40 mg PO DAILY #90 tab 08/09/17 Amoxicillin/Potassium Clav 875 mg PO Q12H #10 tab 10/08/17 [Augmentin] HYDROcodone/ACETAMINOPHEN 1 each PO Q6HP PRN #14 tablet 10/08/17 [Hydrocodon-Acetaminophen 5-325] Allergies Allergy/AdvReac Type Severity Reaction Status Date / Time No Known Drug Allergies Allergy Verified 11/02/16 21:58 Review of Systems Limitations: ROS unobtainable due to patients medical condition Past Medical History - Past Medical History Source: old records reviewed Medical history: Reports: asthma, CHF, CVA (With right-sided hemiparesis), dementia, GERD, hypertension, osteoporosis, other (polymyalgia rheumatica) Surgical history ED: Reports: hip replacement - Social History smoking status: Never smoker Alcohol use: Reports: None Drug use: Reports: none Physical Exam Totally unresponsive to any stimuli. Normocephalic atraumatic. Pupils are sluggish and they are not fully dilated. No congestion but she is snoring. She will not allow me to open her mouth. Neck is supple without lymphadenopathy thyromegaly or carotid bruit. Heart is regular rate and rhythm no murmurs appreciated. Lungs are basically clear to auscultation bilaterally without labored breathing. Abdomen is soft nondistended. No pedal edema +2 radial pulse. Right side of her body is flaccid with dorsiflexion of the right foot. العراقي catheter is in place with dark yellow urine. Sternal rub does not elicit any response After being here approximately 2-1/2 hours, getting IV fluids and insulin she started spontaneously moving her mouth and trying to make sounds Course Vital Signs Temperature 99.1 F H 02/01/18 21:23 Pulse Rate 95 H 02/01/18 21:23 Respiratory Rate 24 H 02/01/18 21:23 Blood Pressure 139/71 02/01/18 21:23 Pulse Oximetry (%) 91 02/01/18 21:23 Temperature 100.5 F H 02/01/18 23:46 Pulse Rate 79 02/01/18 23:46 Respiratory Rate 19 02/01/18 23:46 Blood Pressure 108/54 02/01/18 23:46 Pulse Oximetry (%) 99 02/01/18 23:46 Altered Mental Status - Lab Data Lab results reviewed: Yes I reviewed the patient's lab results. Result diagrams: 02/01/18 21:50 02/01/18 21:50 Lab Results 02/01/18 02/01/18 02/01/18 Range/Units 21:50 21:50 21:50 WBC 11.6 H (4.5-11.0) K/mcL RBC 4.78 (4.00-5.20) M/mcL Hgb 15.8 H (12.0-15.0) g/dL Hct 47.3 (36.0-48.0) % POC Hct 51.0 H (36.0-48.0) % MCV 98.9 (80.0-100.0) fL MCH 33.0 (26.0-34.0) pg MCHC 33.3 (31.0-36.0) g/dL RDW 13.7 (11.5-14.5) % Plt Count 217 (140-440) K/mcL MPV 12.0 H (7.4-10.4) fL Gran % 62.9 (38.0-78.0) % Lymph % (Auto) 23.8 (15.5-49.0) % [place] % (Auto) 11.8 (1.0-12.0) % Eos % (Auto) 0.5 (0.0-7.0) % Baso % (Auto) 1.0 (0.0-2.0) % Gran # 7.2 (1.8-8.0) K/mcL Lymph # (Auto) 2.8 (1.5-4.8) K/mcL [place] # (Auto) 1.4 H (0.1-0.9) K/mcL Eos # (Auto) 0.1 (0.0-0.7) K/mcL Baso # (Auto) 0.1 (0.0-0.3) K/mcL POC PT 19.2 H (11.9-14.5) sec POC INR 1.6 H (0.9-1.2) VBG Lactic Acid (0.5-2.2) mmol/L POC Sodium 151 H (133-145) mmol/L Sodium 150 H (133-145) mmol/L POC Potassium 4.5 (3.3-5.1) mmol/L Potassium 4.6 (3.3-5.1) mmol/L POC Chloride 110 H (96-108) mmol/L Chloride 107 (96-108) mmol/L Carbon Dioxide 26 (22-30) mmol/L POC Total CO2 30 (22-30) mmol/L Anion Gap 17.0 H (8-16) POC BUN 48 H (8-23) mg/dl BUN 37 H (8-23) mg/dl Creatinine 1.6 H (0.6-1.1) mg/dl POC Creatinine 1.6 H (0.6-1.1) mg/dl GFR Calculation 29 Glucose 560 H* (70-105) mg/dL POC Glucose 573 H* (70-105) mg/dL Calcium 9.7 (8.6-10.4) mg/dl POC WB Ioniz Calcium 1.03 L (1.16-1.32) mmol/L Total Bilirubin 0.4 (0.0-1.0) mg/dL AST 41 H (0-37) U/l ALT 55 H (0-40) U/l Alkaline Phosphatase 102 (39-117) U/L Ammonia (11-51) umol/L Total Creatine Kinase 52 (24-170) IU/L Troponin T (0-0.03) ng/ml Total Protein 7.8 (5.9-8.4) gm/dL Albumin 3.8 (3.2-5.2) gm/dL Globulin 4.0 H (2.2-3.7) gm/dL Albumin/Globulin Ratio 1.0 (1.0-2.3) Procalcitonin (<0.10) ng/mL Urine Color Urine Appearance Urine pH (5.0-9.0) Ur Specific [place] (1.000-1.035) Urine Protein (NEG) mg/dL Urine Glucose (UA) (NEG) mg/dL Urine Ketones (NEG) mg/dL Urine Occult Blood (<0.03) mg/dL Urine Nitrate (NEG) Urine Bilirubin (NEG) mg/dL Urine Urobilinogen (NEG) mg/dL Ur Leukocyte Esterase (NEG) /uL Urine RBC (0-1) /hpf Urine WBC (0-4) /hpf Ur Squamous Epith Cells (0-4) /hpf Urine Bacteria (0) /hpf Hyaline Casts (0-2) /lpf Urine Mucus (0) /hpf Ur Culture Indicated? 02/01/18 02/01/18 02/01/18 Range/Units 21:50 21:50 22:00 WBC (4.5-11.0) K/mcL RBC (4.00-5.20) M/mcL Hgb (12.0-15.0) g/dL Hct (36.0-48.0) % POC Hct (36.0-48.0) % MCV (80.0-100.0) fL MCH (26.0-34.0) pg MCHC (31.0-36.0) g/dL RDW (11.5-14.5) % Plt Count (140-440) K/mcL MPV (7.4-10.4) fL Gran % (38.0-78.0) % Lymph % (Auto) (15.5-49.0) % [place] % (Auto) (1.0-12.0) % Eos % (Auto) (0.0-7.0) % Baso % (Auto) (0.0-2.0) % Gran # (1.8-8.0) K/mcL Lymph # (Auto) (1.5-4.8) K/mcL [place] # (Auto) (0.1-0.9) K/mcL Eos # (Auto) (0.0-0.7) K/mcL Baso # (Auto) (0.0-0.3) K/mcL POC PT (11.9-14.5) sec POC INR (0.9-1.2) VBG Lactic Acid 3.5 H (0.5-2.2) mmol/L POC Sodium (133-145) mmol/L Sodium (133-145) mmol/L POC Potassium (3.3-5.1) mmol/L Potassium (3.3-5.1) mmol/L POC Chloride (96-108) mmol/L Chloride (96-108) mmol/L Carbon Dioxide (22-30) mmol/L POC Total CO2 (22-30) mmol/L Anion Gap (8-16) POC BUN (8-23) mg/dl BUN (8-23) mg/dl Creatinine (0.6-1.1) mg/dl POC Creatinine (0.6-1.1) mg/dl GFR Calculation Glucose (70-105) mg/dL POC Glucose (70-105) mg/dL Calcium (8.6-10.4) mg/dl POC WB Ioniz Calcium (1.16-1.32) mmol/L Total Bilirubin (0.0-1.0) mg/dL AST (0-37) U/l ALT (0-40) U/l Alkaline Phosphatase (39-117) U/L Ammonia (11-51) umol/L Total Creatine Kinase (24-170) IU/L Troponin T 0.03 (0-0.03) ng/ml Total Protein (5.9-8.4) gm/dL Albumin (3.2-5.2) gm/dL Globulin (2.2-3.7) gm/dL Albumin/Globulin Ratio (1.0-2.3) Procalcitonin 0.46 (<0.10) ng/mL Urine Color Urine Appearance Urine pH (5.0-9.0) Ur Specific [place] (1.000-1.035) Urine Protein (NEG) mg/dL Urine Glucose (UA) (NEG) mg/dL Urine Ketones (NEG) mg/dL Urine Occult Blood (<0.03) mg/dL Urine Nitrate (NEG) Urine Bilirubin (NEG) mg/dL Urine Urobilinogen (NEG) mg/dL Ur Leukocyte Esterase (NEG) /uL Urine RBC (0-1) /hpf Urine WBC (0-4) /hpf Ur Squamous Epith Cells (0-4) /hpf Urine Bacteria (0) /hpf Hyaline Casts (0-2) /lpf Urine Mucus (0) /hpf Ur Culture Indicated? 02/01/18 02/01/18 Range/Units 22:00 23:00 WBC (4.5-11.0) K/mcL RBC (4.00-5.20) M/mcL Hgb (12.0-15.0) g/dL Hct (36.0-48.0) % POC Hct (36.0-48.0) % MCV (80.0-100.0) fL MCH (26.0-34.0) pg MCHC (31.0-36.0) g/dL RDW (11.5-14.5) % Plt Count (140-440) K/mcL MPV (7.4-10.4) fL Gran % (38.0-78.0) % Lymph % (Auto) (15.5-49.0) % [place] % (Auto) (1.0-12.0) % Eos % (Auto) (0.0-7.0) % Baso % (Auto) (0.0-2.0) % Gran # (1.8-8.0) K/mcL Lymph # (Auto) (1.5-4.8) K/mcL [place] # (Auto) (0.1-0.9) K/mcL Eos # (Auto) (0.0-0.7) K/mcL Baso # (Auto) (0.0-0.3) K/mcL POC PT (11.9-14.5) sec POC INR (0.9-1.2) VBG Lactic Acid (0.5-2.2) mmol/L POC Sodium (133-145) mmol/L Sodium (133-145) mmol/L POC Potassium (3.3-5.1) mmol/L Potassium (3.3-5.1) mmol/L POC Chloride (96-108) mmol/L Chloride (96-108) mmol/L Carbon Dioxide (22-30) mmol/L POC Total CO2 (22-30) mmol/L Anion Gap (8-16) POC BUN (8-23) mg/dl BUN (8-23) mg/dl Creatinine (0.6-1.1) mg/dl POC Creatinine (0.6-1.1) mg/dl GFR Calculation Glucose (70-105) mg/dL POC Glucose (70-105) mg/dL Calcium (8.6-10.4) mg/dl POC WB Ioniz Calcium (1.16-1.32) mmol/L Total Bilirubin (0.0-1.0) mg/dL AST (0-37) U/l ALT (0-40) U/l Alkaline Phosphatase (39-117) U/L Ammonia 50 (11-51) umol/L Total Creatine Kinase (24-170) IU/L Troponin T (0-0.03) ng/ml Total Protein (5.9-8.4) gm/dL Albumin (3.2-5.2) gm/dL Globulin (2.2-3.7) gm/dL Albumin/Globulin Ratio (1.0-2.3) Procalcitonin (<0.10) ng/mL Urine Color Yellow Urine Appearance Hazy Urine pH 5.0 (5.0-9.0) Ur Specific [place] 1.033 (1.000-1.035) Urine Protein Neg (NEG) mg/dL Urine Glucose (UA) >=500 A (NEG) mg/dL Urine Ketones Neg (NEG) mg/dL Urine Occult Blood 0.03 A (<0.03) mg/dL Urine Nitrate Pos A (NEG) Urine Bilirubin Neg (NEG) mg/dL Urine Urobilinogen Neg (NEG) mg/dL Ur Leukocyte Esterase 25 A (NEG) /uL Urine RBC < 1 (0-1) /hpf Urine WBC 10 H (0-4) /hpf Ur Squamous Epith Cells < 1 (0-4) /hpf Urine Bacteria Few A (0) /hpf Hyaline Casts 16 H (0-2) /lpf Urine Mucus Few (0) /hpf Ur Culture Indicated? Yes - Radiology Data Radiology results reviewed: Yes I reviewed the patient's radiology results. CT scan of the head without contrast shows no acute findings but old CVA Chest x-ray showed cardiomegaly but no acute infiltrate or interstitial markings - EKG Data EKG attestation: Yes I reviewed and interpreted this EKG. EKG results narrative: Rate of 97 with premature atrial contractions. Criteria for LVH. Some flipped T waves V3 to V6-does not meet criteria. There is a Q-wave in lead III. ST depression especially in lead I, lesser so in II and aVF but likely does not meet criteria Critical Care Time Critical Care Time: Yes Total Critical Care Time: 45 Attestation: 45 minutes critical care time including care coordination, serial exams, review of studies and documentation. I was immediately available to the patient the entire time Disposition Pt seen by FURNISHINGS CONSERVATOR/PA only: No Clinical Impression: Hypernatremia, Hyperosmolar (nonketotic) coma, Acute kidney failure with tubular necrosis, Dehydration Sepsis Qualifiers: Sepsis type: sepsis due to unspecified organism Qualified Code(s): A41.9 - Sepsis, unspecified organism Altered mental status Qualifiers: Altered mental status type: coma Coma depth: Brent coma 3-8 Coma timing: unspecified coma timing Qualified Code(s): R40.2430 - Aarti coma scale score 3 -8, unspecified time UTI (urinary tract infection) Qualifiers: Urinary tract infection type: acute cystitis Hematuria presence: with hematuria Qualified Code(s): N30.01 - Acute cystitis with hematuria Summary: Patient was seen and evaluated initially found to be in a coma 10 totally unresponsive but she was breathing normally with normal oxygen sats. Concern for Sirs/sepsis picture versus hyperosmolar hyperglycemic non-ketotic coma versus acute CVA Fingerstick blood sugar was initially 472 (it was over 500 in the ambulance)- insulin drip was started after bolus 10 units. IV fluids started EKG did not meet acute ischemia criteria. Naloxone did not help Blood cultures done Zosyn started. Multiple laboratory abnormalities noted. Consult with hospitalist to optimize IV fluid regimen-change to half-normal saline for hypernatremia. Severe dehydration noted with acute kidney injury and likely ATN. Evidence of UTI with sepsis on labs CT negative for acute CVA. Chest x-ray negative for acute pneumonia or CHF Discussed with hospitalist Dr. Joe , he will admit patient for further evaluation and care in the ICU Patient started to wake up with above-noted treatments including insulin drip, IV fluids, IV antibiotics Disposition: Xfer As Inpt ([facility]) Condition: Critical Referrals: Guille Arriaga MD [Primary Care Provider] -
[2018-02-01 23:55] LABS: Appearance,Urine HAZY; Bacteria,Urine FEW /hpf (0); Bilirubin,Urine NEG (NEG); Color,Urine YELLOW; Glucose,Urine (UA) >=500 mg/dL (NEG); Leukocyte Esterase,Urine 25 /uL (NEG); Mucus,Urine FEW /hpf (0); Protein,Urine NEG (NEG); Specific Gravity,Urine 1.033 (1.000-1.035); Urine Blood 0.03 mg/dL (<0.03); Urine Hyaline Cast 16 /lpf (0-2); Urine RBC < 1 /hpf (0-1); Urine Squamous Epithelial Cell < 1 /hpf (0-4); Urine WBC 10 /hpf (0-4); Urobilinogen,Urine NEG (NEG)
[2018-02-01 23:59] LABS: Amphetamine Screen,Urine NONE DETECTED (NONDETECTED); Benzodiazepines Screen,Urine NONE DETECTED (NONDETECTED); Cocaine Screen,Urine NONE DETECTED (NONDETECTED); Opiate Screen,Urine SUSPECT POSITIVE (NONDETECTED); Oxycodone, Urine Screen NONE DETECTED (NONDETECTED)
--- NOTE | 2018-02-02 02:58 | Internal Med History&Physical ---
Medical - H&P: [facility] Patient information: Note initiated : 02/02/18 at 2:56 am Service Date, if different from initiated Date: [] Patient: January Torres 82 y/o F admitted for unresponsive. Chief Complaint: [] Chief complaint: fever, not responsive, lethargic History of present illness: Ms. 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 She was sent to ER for decreased responsiveness/unresponsive, fever, decreased oral intake, and lethargic. Patient is obtunded and most information are obtained through chart & database review and from family members at bedside. Her son and daughters noted her to be off of her baseline about a week ago on last Saturday, and more noticeable by with increased drowsiness and decreased mentation. Preliminary labs show severe hyperglycemia (573) and hypernatremia (151), medicine service is consulted for the best effective fluid for resuscitations. Insulin drip was also started for hyperglycemia. Subsequent tests results are consistent with sepsis, acute renal failure, hyperosmolar nonketotic syndrome, UTI, lactic acidosis, severe dehydration. 2 sets of blood culture were obtained and Zosyn 3.375 was given at ER. Her condition is critical and required intensive care management, although Her CODE STATUS is DO NOT RESUSCITATE Comfort Care only. 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 (since thenanticoagulated on Pradaxa), reactive airway disease polymyalgia rheumatica, CAD and hypertension, degenerative joint disease, osteoporosis neuropathy, peptic ulcer disease/GERD recent pneumonia and sepsis 10/04/17 Surgical history: S/P Hip replacement Family history: reviewed and not pertinent Smoking status: Never smoker Drug use: none Alcohol use: none Medical - H&P: Meds Home Medications Medication Instructions Recorded Confirmed Type Gabapentin [Neurontin] 200 mg PO BID 11/02/16 02/01/18 History Ipratropium/Albuterol [Duoneb] 3 ml NEB Q6HP PRN 11/02/16 02/01/18 History Simethicone [Gas-X] 80 mg PO TID PRN 11/02/16 02/01/18 History amLODIPine [Norvasc] 10 mg PO DAILY 11/02/16 02/01/18 History cloNIDine HCL [Catapres] 0.2 mg PO HS 11/02/16 02/01/18 History Acetaminophen [Tylenol] 650 mg PO Q6HP PRN #0 tablet 11/06/16 02/01/18 Rx Calcium W/Vit D3 500 mg PO BID tablet 11/06/16 02/01/18 Rx Docusate Sodium [Colace] 100 mg PO BID capsule 11/06/16 02/01/18 Rx Calcitonin [Miacalcin] 1 spray NS DAILY 08/07/17 02/01/18 History Cholecalciferol (Vitamin D3) [D3 2,000 unit PO DAILY 08/07/17 02/01/18 History Dots] Dabigatran Etexilate Mesylate 75 mg PO BID 08/07/17 02/01/18 History [Pradaxa] Escitalopram [Lexapro] 5 mg PO DAILY 08/07/17 02/01/18 History Folic Acid 1 mg PO DAILY 08/07/17 02/01/18 History Gabapentin [Neurontin] 300 mg PO HS 08/07/17 02/01/18 History Misoprostol [Cytotec] 100 mcg PO ACB 08/07/17 02/01/18 History Multivitamin [One Daily] 1 tab PO DAILY 08/07/17 02/01/18 History Zinc Gluconate [Zinc] 50 mg PO TU@0900 08/07/17 02/01/18 History predniSONE [Prednisone] 10 mg PO QAC 08/07/17 02/01/18 History Aspirin [Ecotrin] 325 mg PO DAILY tab.ec 08/09/17 02/01/18 Rx Furosemide [Lasix] 40 mg PO DAILY #90 tab 08/09/17 02/01/18 Rx traZODone HCL [Desyrel] 50 mg PO HS 10/04/17 02/01/18 History HYDROcodone/ACETAMINOPHEN 1 each PO Q6HP PRN #14 tablet 10/08/17 02/02/18 Rx [Hydrocodon-Acetaminophen 5-325] Baclofen [Lioresal] 10 mg PO BID 02/01/18 02/01/18 History Omeprazole [PriLOSEC] 20 mg PO ACB 02/01/18 02/01/18 History Sennosides/Docusate Sodium 2 tab PO HS 02/02/18 02/02/18 History [Senna-Docusate Sodium Tablet] Allergies Allergy/AdvReac Type Severity Reaction Status Date / Time No Known Drug Allergies Allergy Verified 11/02/16 21:58 Medical - H&P: Exam - Constitutional Vitals: Temp Pulse Resp BP Pulse Ox 99.9 F H 84 20 125/63 97 02/02/18 02:47 02/02/18 02:47 02/02/18 02:47 02/02/18 02:46 02/02/18 02:47 General appearance: obese, severe distress Exam: Nonresponsive, obtunded, eyes closed - Head Head exam: Present: atraumatic, normocephalic - Eye Pupils: Present: PERRL - ENT ENT exam: Present: mucous membranes dry - Neck Neck exam: Absent: lymphadenopathy, tenderness, thyromegaly - Respiratory Respiratory exam: Present: CTAB. Absent: stridor, wheezes - Cardiovascular Cardiovascular exam: Present: +S1, +S2 Additional comments: Fast heart rate at high 90s - GI/Abdominal GI/Abdominal exam: Present: soft, diminished bowel sounds. Absent: guarding, mass, rebound, rigid, tenderness - Extremities Exam Extremities exam: Present: neurovascular intact. Absent: calf tenderness, pedal edema, tenderness Additional comments: No clubbing, cyanosis or edema, cold feet - Neurological Exam Neurological exam: Present: altered Additional comments: Right hemiplegic - Skin Skin exam: Present: dry Additional comments: Poor skin turgor Medical - H&P: Reslt - Labs CBC & Chem 7: 02/02/18 15:28 02/02/18 15:28 Labs: Short CBC 02/01/18 Range/Units 21:50 WBC 11.6 H (4.5-11.0) K/mcL Hgb 15.8 H (12.0-15.0) g/dL Hct 47.3 (36.0-48.0) % Plt Count 217 (140-440) K/mcL BMP 02/01/18 21:50 Sodium 150 H Potassium 4.6 Chloride 107 Carbon Dioxide 26 BUN 37 H Creatinine 1.6 H Glucose 560 H* Calcium 9.7 Cardiac Enzymes 02/01/18 02/01/18 Range/Units 21:50 21:50 Total Creatine Kinase 52 (24-170) IU/L Troponin T 0.03 (0-0.03) ng/ml Liver Function 02/01/18 Range/Units 21:50 Total Bilirubin 0.4 (0.0-1.0) mg/dL AST 41 H (0-37) U/l ALT 55 H (0-40) U/l Alkaline Phosphatase 102 (39-117) U/L Albumin 3.8 (3.2-5.2) gm/dL Urine 02/01/18 Range/Units 23:00 Urine Color Yellow Urine Appearance Hazy Urine pH 5.0 (5.0-9.0) Ur Specific [place] 1.033 (1.000-1.035) Urine Protein Neg (NEG) mg/dL Urine Glucose (UA) >=500 A (NEG) mg/dL - ABG Interpretation -: ABG interpreted by me Interpretation: normal - EKG Data Prior EKG available for review: yes When compared to previous EKG: there is no significant change EKG comments: 02/02/18 04:46 Sinus, rate 97, LVH, PAC 02/02/18 20:48 - Imaging and Cardiology CT scan - head Additional comments: IMPRESSION: 1. No acute abnormality. No intracranial hemorrhage 2. Chronic encephalomalacia in the left cerebral hemisphere as above Interpreted and Authenticated by: Erick Wasserman 02/02/18 Chest x-ray Additional comments: No acute abnormality. No significant interval change IMPRESSION: No acute abnormality. Interpreted and Authenticated by: Erick Wasserman 02/02/18 Medical - H&P: A/P (1) Sepsis Current visit: Yes Status: Acute Blood culture, positive UA to be cultured, had Zosyn at the ER, however will switch to Rocephin for concern of acute renal injury. Check random cortisol, supplement if needed (2) Hyperosmolar (nonketotic) coma Current visit: Yes Status: Acute Aggressive IV fluid resuscitation with preferably 1/4 normal saline, however which was not available per Dr. Mcclure (ED). We will use half-normal saline, aggressive fluid resuscitation, along with insulin drip and frequent electrolyte monitoring, replace as needed. frequent blood glucose monitoring, check hemoglobin A1c, hold her prednisone medications Although we are Fully aware of potential fluid overload with her CAD history, there is no alternative. She is a DNR GIS MANAGER code status. (3) Acute kidney injury Current visit: Yes Status: Acute Check UA C&S, monitor renal functions, hold antihypertensive meds, diuretics, NSAIDs, gabapentin, nephrotoxic meds. (4) Lactic acidosis Current visit: Yes Status: Acute Hemodynamic Support with IV fluid and anti-infection with IV antibiotics, monitor serial lactate, serial troponin to rule out cardiac event (5) Dehydration Current visit: Yes Status: Acute Aggressive IV fluid resuscitation and hemodynamic support, check and replace electrolytes, monitor renal functions, check UA C&S (6) UTI (urinary tract infection) Current visit: Yes Status: Acute UA C&S as above, Zosyn switch to Rocephin IV, follow-up on blood cultures and sensitivity panel. (7) Immunocompromised due to corticosteroids Current visit: Yes Status: Acute As above, blood and urine cultures, IV antibiotics, hold prednisone, check random cortisol, consider stress dose steroids if evidence of her hemodynamic is further compromised. (8) Altered mental status Current visit: Yes Status: Acute Her alternated mental status is likely secondary to the above etiologies and contributing factors. Her Condition Is Critical, Continue ICU monitoring. I discussed in great length and detail with her family members, and confirmed CODE STATUS to be DNR-Comfort Care. Total critical care time spent greater than 75 minutes. Counseling and coordination of care is more than 50% time Medical - H&P: Qual - VTE Deep Vein Thrombosis/Pulmonary Embolism Present on Admission: No
[2018-02-02] MEDS ORDERED: INSULIN REGULAR, HUMAN 50 UNIT in 0.9 % SODIUM CHLORIDE 99.5 ML IV PRN (03:28)
[2018-02-02] MEDS ORDERED: ACETAMINOPHEN 650 MG SUPP.RECT PR PRN (03:28)
[2018-02-02] MEDS ORDERED: cefTRIAXone 2 GM in DEXTROSE 5% IN WATER 50 ML IV SCH (03:28)
[2018-02-02] MEDS ORDERED: ONDANSETRON 4 MG/2 ML VIAL IV PRN (03:28)
[2018-02-02] MEDS: 0.45 % SODIUM CHLORIDE 1,000 ML IV SCH ×5 (04:04→22:56)
[2018-02-02] MEDS ORDERED: cefTRIAXone 1 GM VIAL ONE (04:07)
[2018-02-02] MEDS ORDERED: DEXTROSE 31 GM ORAL.SUSP PO PRN ×2 (04:46→18:31)
[2018-02-02] MEDS ORDERED: DEXTROSE 50% 50 ML VIAL IV PRN ×2 (04:46→18:31)
[2018-02-02 04:55] LABS: Blood Urea Nitrogen 34 mg/dl (8-23)
[2018-02-02] MEDS: INSULIN LISPRO 1 UNIT/0.01 ML UNIT SQ SCH ×14 (04:57→21:14)
[2018-02-02] MEDS ORDERED: INSULIN LISPRO 1 UNIT/0.01 ML UNIT SQ ONE ×2 (05:02→06:02)
[2018-02-02 05:10] LABS: proBNP 797.5 pg/ml (0-450)
[2018-02-02] MEDS: 0.9 % SODIUM CHLORIDE 10 ML SYRINGE IV SCH ×3 (05:59→22:25)
--- NOTE | 2018-02-02 06:52 | XRay Report ---
INDICATION: Altered mental status TECHNIQUE: AP chest x-ray, semiupright portable COMPARISON: 10/06/2017, 10/04/2017, 08/07/2017 FINDINGS: No focal pulmonary parenchymal infiltrate or mass. Lungs are negative. Heart size is within normal limits considering AP positioning. Pulmonary vascularity is negative. No pulmonary edema. No pulmonary congestion. Incidental note is made of a densely calcified mitral valve annulus No acute abnormality. No significant interval change IMPRESSION: No acute abnormality. Interpreted and Authenticated by: Erick Wasserman 02/02/18
--- NOTE | 2018-02-02 06:57 | Cat Scan Report ---
CLINICAL INFORMATION: Depressed level of consciousness COMPARISON: None. TECHNIQUE: Axial noncontrast-enhanced images through the brain. FINDINGS: No acute intracranial hemorrhage. No subdural hematoma. No subarachnoid hemorrhage. Large area of encephalomalacia in the left middle cerebral artery territory. Small area of encephalomalacia in the left occipital lobe. There is a left thalamic lacunar infarction. There is left mesencephalic atrophy secondary to large chronic stroke and wall layering and degeneration of the mesencephalic white matter. Findings are all consistent with chronic infarction. There is cerebral atrophy. There is white matter abnormality consistent with small vessel ischemic change in this 82-year-old patient. No new focal intra-axial abnormality. No localized mass effect. No transfer seen or uncal herniation. Brainstem and cerebellum are intrinsically negative. Basilar cisterns are normal. No hyperdense middle cerebral artery sign. No calvarial lesion. No lytic lesion. There is mild soft tissue abnormality within left mastoid air cells consistent with inflammatory disease Examination was initially interpreted by [facility] IMPRESSION: 1. No acute abnormality. No intracranial hemorrhage 2. Chronic encephalomalacia in the left cerebral hemisphere as above The exam was performed using radiation dose optimization techniques including, but not limited to, automated exposure control, adjustment of the mA and/or kV according to patient size and use of iterative reconstruction technique. Interpreted and Authenticated by: Erick Wasserman 02/02/18
[2018-02-02] MEDS: BUDESONIDE 0.5 MG/2 ML AMPUL.NEB NEB SCH ×2 (07:50→19:55)
[2018-02-02] MEDS: IPRATROPIUM/ALBUTEROL 3 ML AMPUL.NEB NEB SCH ×3 (07:50→19:55)
[2018-02-02] MEDS ORDERED: ENOXAPARIN 30 MG/0.3 ML SYRINGE SQ SCH (09:00)
[2018-02-02 10:38] LABS: Blood Urea Nitrogen 30 mg/dl (8-23)
[2018-02-02] MEDS ORDERED: amLODIPine 5 MG TABLET PO ONE (15:46)
[2018-02-02] MEDS ORDERED: 0.45 % SODIUM CHLORIDE 1,000 ML IV SCH (16:00)
[2018-02-02 16:05] LABS: Basophils # (Auto) 0 K/mcL (0.0-0.3); Basophils % (Auto) 0.4 % (0.0-2.0); Eosinophils # (Auto) 0.4 K/mcL (0.0-0.7); Eosinophils % (Auto) 3.7 % (0.0-7.0); Granulocytes % (Auto) 66.8 % (38.0-78.0); Lymphocytes # (Auto) 2.3 K/mcL (1.5-4.8); Lymphocytes % (Auto) 20.4 % (15.5-49.0); Mean Cell Volume 99.9 fL (80.0-100.0); Mean Corpuscular HGB Conc 33.4 g/dL (31.0-36.0); Mean Corpuscular Hemoglobin 33.3 pg (26.0-34.0); Monocytes % (Auto) 8.7 % (1.0-12.0); Platelet Count 151 K/mcL (140-440); RBC 4.06 M/mcL (4.00-5.20); Red Cell Distribution Width 14.2 % (11.5-14.5)
[2018-02-02 16:50] LABS: Blood Urea Nitrogen 26 mg/dl (8-23)
[2018-02-02] MEDS ORDERED: CALCIUM GLUCONATE 4.65 MEQ/10 ML VIAL IV ONE (18:12)
[2018-02-02 19:04] LABS: Hemoglobin A1C 10.3 % HGB (4.0-6.0)
[2018-02-02] MEDS: POTASSIUM CHLORIDE 20 MEQ PACKET PO SCH ×2 (20:53→21:24)
[2018-02-02] MEDS ORDERED: SENNOSIDES/DOCUSATE SODIUM 1 TAB TABLET PO SCH (21:00)
[2018-02-02] MEDS ORDERED: CALCIUM CHLORIDE 1,000 MG/10 ML SYRINGE IV ONE (21:00)
[2018-02-02] MEDS ORDERED: FAMOTIDINE/PF 20 MG/2 ML VIAL IV SCH (21:00)
[2018-02-02] MEDS: CALCIUM W/VIT D3 500 MG TABLET PO SCH (21:13)
[2018-02-02] MEDS: DABIGATRAN ETEXILATE MESYLATE 75 MG CAPSULE PO SCH (21:13)
[2018-02-02] MEDS: DOCUSATE SODIUM 100 MG CAPSULE PO SCH (21:15)
[2018-02-02] MEDS: INSULIN GLARGINE, HUMAN 1 UNIT/0.01 ML SQ SCH (21:22)
[2018-02-03] MEDS: INSULIN LISPRO 1 UNIT/0.01 ML UNIT SQ SCH ×6 (00:30→21:53)
[2018-02-03] MEDS: IPRATROPIUM/ALBUTEROL 3 ML AMPUL.NEB NEB SCH ×2 (01:49→07:10)
[2018-02-03] MEDS: 0.45 % SODIUM CHLORIDE 1,000 ML IV SCH (04:13)
[2018-02-03] MEDS: 0.9 % SODIUM CHLORIDE 10 ML SYRINGE IV SCH ×3 (04:20→21:54)
[2018-02-03] MEDS: amLODIPine 10 MG TABLET PO SCH ×2 (04:52→08:18)
[2018-02-03 06:30] LABS: Basophils # (Auto) 0 K/mcL (0.0-0.3); Basophils % (Auto) 0.4 % (0.0-2.0); Eosinophils # (Auto) 0.4 K/mcL (0.0-0.7); Eosinophils % (Auto) 3.6 % (0.0-7.0); Granulocytes % (Auto) 70.4 % (38.0-78.0); Lymphocytes # (Auto) 2.1 K/mcL (1.5-4.8); Lymphocytes % (Auto) 19.1 % (15.5-49.0); Mean Cell Volume 101.1 fL (80.0-100.0); Mean Corpuscular HGB Conc 33.2 g/dL (31.0-36.0); Mean Corpuscular Hemoglobin 33.6 pg (26.0-34.0); Monocytes # (Auto) 0.7 K/mcL (0.1-0.9); Monocytes % (Auto) 6.5 % (1.0-12.0); Platelet Count 157 K/mcL (140-440); RBC 4.14 M/mcL (4.00-5.20); Red Cell Distribution Width 14.1 % (11.5-14.5)
[2018-02-03 06:52] LABS: proBNP 546.6 pg/ml (0-450)
[2018-02-03 07:01] LABS: ALT/SGPT 36 U/l (0-40); Alkaline Phosphatase 86 U/L (39-117); Blood Urea Nitrogen 17 mg/dl (8-23)
[2018-02-03] MEDS: BUDESONIDE 0.5 MG/2 ML AMPUL.NEB NEB SCH (07:10)
[2018-02-03] MEDS ORDERED: MISOPROSTOL 100 MCG TABLET PO SCH (07:30)
[2018-02-03] MEDS ORDERED: LABETALOL 5 MG/ML ML IV PRN ×2 (07:57→14:06)
[2018-02-03] MEDS: CALCIUM W/VIT D3 500 MG TABLET PO SCH ×2 (08:17→21:53)
[2018-02-03] MEDS: DABIGATRAN ETEXILATE MESYLATE 75 MG CAPSULE PO SCH ×2 (08:18→21:52)
[2018-02-03] MEDS: INSULIN GLARGINE, HUMAN 1 UNIT/0.01 ML SQ SCH (08:23)
[2018-02-03] MEDS ORDERED: MULTIVIT,THER IRON,CA,FA & MIN 1 TABLET PO SCH (09:00)
[2018-02-03] MEDS ORDERED: cefTRIAXone 2 GM in DEXTROSE 5% IN WATER 50 ML IV SCH (09:00)
[2018-02-03] MEDS ORDERED: ASPIRIN 325 MG ENTERIC COATED TABLET PO SCH (09:00)
[2018-02-03] MEDS ORDERED: FOLIC ACID 1 MG TABLET PO SCH (09:00)
[2018-02-03] MEDS ORDERED: CALCITONIN NASAL SPRAY 3.7ML BOTTLE NS SCH (09:00)
[2018-02-03] MEDS ORDERED: VITAMIN D3 1,000 UNIT TABLET PO SCH (09:00)
[2018-02-03] MEDS: DOCUSATE SODIUM 100 MG CAPSULE PO SCH ×2 (09:41→23:26)
--- NOTE | 2018-02-03 13:00 | Internal Med Progress Note ---
Medical - PN: Subj Patient information: Note initiated : 02/03/18 at 12:31 pm Service Date, if different from initiated Date: [] Patient: January Torres 82 y/o F admitted on 02/02/18 for Unresponsive/ Hyperosmolar Coma, Sepsis, UTI. 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 2 sets of blood culture were obtained and Zosyn 3.375 was given at ER. Her CODE STATUS is DO NOT RESUSCITATE [facility] only. 02/03/18 - Constitutional Vitals: Vital Signs Temp Pulse Resp BP Pulse Ox 98.8 F 98 H 24 H 195/74 93 02/03/18 06:01 02/03/18 07:19 02/03/18 07:19 02/03/18 06:01 02/03/18 06:00 Period Temp Pulse Resp BP Sys/Roberts Pulse Ox Last 24 Hr 97.9 F-98.8 F 82-98 14-28 143-217/67-86 92-96 Intake and Output 02/02/18 02/03/18 02/03/18 21:59 05:59 13:59 Intake Total 100 / 100 1290 / 1290 Output Total 145 / 145 225 / 225 295 / 295 Balance -45 / -45 1065 / 1065 -295 / -295 Weight 189 lb 6.4 oz Intake & Output: Intake & Output 02/02/18 02/03/18 02/03/18 21:59 05:59 13:59 Intake Total 100 / 100 1290 / 1290 Output Total 145 / 145 225 / 225 295 / 295 Balance -45 / -45 1065 / 1065 -295 / -295 Weight 189 lb 6.4 oz Intake: IV 1290 / 1290 Sodium Chloride 0.45% 1,000 ml 1290 / 1290 @ 150 mls/hr IV .[id number] [facility] Rx# :[id number] Oral 100 / 100 Output: Urine Catheter Amount 145 / 145 225 / 225 295 / 295 Other: Stool Size Smear Small Large Stool Color Brown Brown Brown Yellow Stool Consistency Normal for Patient Soft Soft Formed # Bowel Movements 2 # of times incontinent of 2 Bowels Medical - PN: Obj Da - Labs CBC & Chem 7: 02/04/18 04:00 02/04/18 04:00 Labs: Abnormal Lab Results 02/03/18 02/03/18 02/02/18 04:28 04:28 15:28 WBC Hgb POC Hct MCV 101.1 H MPV 11.7 H [place] # (Auto) POC PT POC INR VBG Lactic Acid POC Sodium Sodium POC Chloride Chloride Anion Gap POC BUN BUN Creatinine POC Creatinine Glucose 195 H POC Glucose Hemoglobin A1c 10.3 H Calcium POC WB Ioniz Calcium Magnesium AST ALT NT-Pro-B Natriuret Pep 546.6 H Albumin 3.0 L Globulin Urine Glucose (UA) Urine Occult Blood Urine Nitrate Ur Leukocyte Esterase Urine WBC Urine Bacteria Hyaline Casts Urine Opiates Screen 02/02/18 02/02/18 02/02/18 15:28 15:28 09:20 WBC 11.3 H Hgb POC Hct MCV MPV 10.8 H [place] # (Auto) 1.0 H POC PT POC INR VBG Lactic Acid POC Sodium Sodium 147 H POC Chloride Chloride 109 H Anion Gap POC BUN BUN 26 H 30 H Creatinine POC Creatinine Glucose 189 H 184 H POC Glucose Hemoglobin A1c Calcium 7.9 L 8.2 L POC WB Ioniz Calcium Magnesium AST ALT NT-Pro-B Natriuret Pep Albumin Globulin Urine Glucose (UA) Urine Occult Blood Urine Nitrate Ur Leukocyte Esterase Urine WBC Urine Bacteria Hyaline Casts Urine Opiates Screen 02/02/18 02/02/18 02/01/18 03:51 03:51 23:00 WBC Hgb POC Hct MCV MPV [place] # (Auto) POC PT POC INR VBG Lactic Acid POC Sodium Sodium 150 H POC Chloride Chloride 111 H Anion Gap POC BUN BUN 34 H Creatinine 1.4 H POC Creatinine Glucose 145 H POC Glucose Hemoglobin A1c Calcium POC WB Ioniz Calcium Magnesium 2.6 H AST ALT NT-Pro-B Natriuret Pep 797.5 H Albumin Globulin Urine Glucose (UA) >=500 A Urine Occult Blood 0.03 A Urine Nitrate Pos A Ur Leukocyte Esterase 25 A Urine WBC 10 H Urine Bacteria Few A Hyaline Casts 16 H Urine Opiates Screen 02/01/18 02/01/18 02/01/18 23:00 22:00 21:50 WBC Hgb POC Hct 51.0 H MCV MPV [place] # (Auto) POC PT POC INR VBG Lactic Acid 3.5 H POC Sodium 151 H Sodium 150 H POC Chloride 110 H Chloride Anion Gap 17.0 H POC BUN 48 H BUN 37 H Creatinine 1.6 H POC Creatinine 1.6 H Glucose 560 H* POC Glucose 573 H* Hemoglobin A1c Calcium POC WB Ioniz Calcium 1.03 L Magnesium AST 41 H ALT 55 H NT-Pro-B Natriuret Pep Albumin Globulin 4.0 H Urine Glucose (UA) Urine Occult Blood Urine Nitrate Ur Leukocyte Esterase Urine WBC Urine Bacteria Hyaline Casts Urine Opiates Screen Suspect positive A 02/01/18 02/01/18 21:50 21:50 WBC 11.6 H Hgb 15.8 H POC Hct MCV MPV 12.0 H [place] # (Auto) 1.4 H POC PT 19.2 H POC INR 1.6 H VBG Lactic Acid POC Sodium Sodium POC Chloride Chloride Anion Gap POC BUN BUN Creatinine POC Creatinine Glucose POC Glucose Hemoglobin A1c Calcium POC WB Ioniz Calcium Magnesium AST ALT NT-Pro-B Natriuret Pep Albumin Globulin Urine Glucose (UA) Urine Occult Blood Urine Nitrate Ur Leukocyte Esterase Urine WBC Urine Bacteria Hyaline Casts Urine Opiates Screen Meds: Medications Acetaminophen (Tylenol) 650 mg ND Q4-6HP PRN PRN Reason: PAIN/FEVER > 101 Amlodipine Besylate (Norvasc) 10 mg PO DAILY [facility] Last Admin: 02/03/18 08:18 Dose: 10 mg Aspirin (Ecotrin) 325 mg PO DAILY [facility] Last Admin: 02/03/18 08:18 Dose: 325 mg Calcitonin [place] (Miacalcin) 1 spray NS DAILY [facility] Last Admin: 02/03/18 08:19 Dose: Not Given Calcium/Vitamin D (Calcium W/Vit D3) 500 mg PO BID [facility] Last Admin: 02/03/18 08:17 Dose: 500 mg Dabigatran (Pradaxa) 75 mg PO BID [facility] Last Admin: 02/03/18 08:18 Dose: 75 mg Dextrose (Dextrose 50%) 0 ml IV UD PRN PRN Reason: Hypoglycemia Diagnostic Test (Pha) (Accu-Chek) 1 each FS Q4 [facility] Last Admin: 02/03/18 12:00 Dose: 1 each Docusate Sodium (Colace) 100 mg PO BID [facility] Last Admin: 02/03/18 09:41 Dose: Not Given Famotidine (Pepcid) 20 mg IV HS [facility] Last Admin: 02/02/18 21:13 Dose: 20 mg Folic Acid (Folic Acid) 1 mg PO DAILY [facility] Last Admin: 02/03/18 08:18 Dose: 1 mg Glucose (Insta-Glucose) 15 gm PO PRN PRN PRN Reason: Hypoglycemia Ceftriaxone Sodium 2 gm/ (Dextrose) 50 mls @ 100 mls/hr IV Q24H [facility] Last Admin: 02/03/18 09:42 Dose: 100 mls/hr Insulin Glargine (Lantus) 8 unit SQ DAILY [facility] Last Admin: 02/03/18 08:23 Dose: 8 unit Insulin Human Lispro (Humalog) 0 unit SQ Q4 [facility] PRN Reason: Protocol Last Admin: 02/03/18 12:07 Dose: 6 unit Iron Carb/Multivit/[place]/Folic Acid (Multivitamin W/Minerals) 1 tab PO DAILY [facility] Last Admin: 02/03/18 08:18 Dose: 1 tab Labetalol HCl (Trandate) 10 mg IV Q4HP PRN PRN Reason: rebound hypertension Last Admin: 02/03/18 12:07 Dose: 10 mg Misoprostol (Cytotec) 100 mcg PO ACB [facility] Last Admin: 02/03/18 08:17 Dose: 100 mcg Ondansetron HCl (Zofran) 4 mg IV Q4-6HP PRN PRN Reason: Nausea And Vomiting Senna/Docusate Sodium (Senna Plus Tablet) 2 tab PO HS [facility] Last Admin: 02/02/18 21:15 Dose: Not Given Sodium Chloride (Saline Flush) 10 ml IV Q8 [facility] Last Admin: 02/03/18 12:15 Dose: 10 ml Vitamin D (Vitamin D3) 2,000 unit PO DAILY [facility] Last Admin: 02/03/18 08:18 Dose: 2,000 unit Zinc Sulfate (Zinc) 50 mg PO Tu@0900 [facility] Medical - PN: A/P - Time Spent With Patient Total time spent is greater than 50% in coordination of care (as documented) at patient's floor/unit and/or counseling patient: (1) Sepsis Status: Acute Current Visit: Yes (2) Hyperosmolar (nonketotic) coma Status: Acute Current Visit: Yes (3) Acute kidney injury Status: Acute Current Visit: Yes (4) Lactic acidosis Status: Acute Current Visit: Yes (5) Dehydration Status: Acute Current Visit: Yes (6) UTI (urinary tract infection) Status: Acute Current Visit: Yes (7) Immunocompromised due to corticosteroids Status: Acute Current Visit: Yes (8) Altered mental status Status: Acute Current Visit: Yes Medical - PN: Qual - Stroke Symptom Onset Unknown: No - VTE Deep Vein Thrombosis/Pulmonary Embolism Present on Admission: No
[2018-02-03] MEDS ORDERED: DEXTROSE 31 GM ORAL.SUSP PO PRN (14:06)
[2018-02-03] MEDS ORDERED: DEXTROSE 50% 50 ML VIAL IV PRN (14:06)
[2018-02-03] MEDS ORDERED: ONDANSETRON 4 MG/2 ML VIAL IV PRN (14:06)
[2018-02-03] MEDS: LABETALOL 100 MG TABLET PO SCH ×2 (14:26→21:53)
[2018-02-03] MEDS: ACETAMINOPHEN 650 MG SUPP.RECT PR PRN (19:33)
[2018-02-03] MEDS: FAMOTIDINE 20 MG TABLET PO SCH (21:52)
[2018-02-03] MEDS: SENNOSIDES/DOCUSATE SODIUM 1 TAB TABLET PO SCH (23:26)
[2018-02-04 05:38] LABS: Basophils # (Auto) 0 K/mcL (0.0-0.3); Basophils % (Auto) 0.4 % (0.0-2.0); Eosinophils # (Auto) 0.5 K/mcL (0.0-0.7); Granulocytes % (Auto) 72.9 % (38.0-78.0); Lymphocytes # (Auto) 1.6 K/mcL (1.5-4.8); Lymphocytes % (Auto) 14.3 % (15.5-49.0); Mean Cell Volume 99.4 fL (80.0-100.0); Mean Corpuscular HGB Conc 33.3 g/dL (31.0-36.0); Mean Corpuscular Hemoglobin 33.1 pg (26.0-34.0); Monocytes % (Auto) 8.4 % (1.0-12.0); Platelet Count 153 K/mcL (140-440); RBC 4.01 M/mcL (4.00-5.20); Red Cell Distribution Width 13.8 % (11.5-14.5)
[2018-02-04] MEDS: 0.9 % SODIUM CHLORIDE 10 ML SYRINGE IV SCH ×3 (06:27→21:54)
[2018-02-04 06:43] LABS: ALT/SGPT 31 U/l (0-40); Albumin 2.9 gm/dL (3.2-5.2); Albumin/Globulin Ratio 1.1 (1.0-2.3); Alkaline Phosphatase 95 U/L (39-117); Blood Urea Nitrogen 12 mg/dl (8-23)
[2018-02-04] MEDS: DOCUSATE SODIUM 100 MG CAPSULE PO SCH ×2 (07:32→21:43)
[2018-02-04] MEDS: CALCITONIN NASAL SPRAY 3.7ML BOTTLE NS SCH (07:33)
[2018-02-04] MEDS ORDERED: POTASSIUM CHLORIDE 40 MEQ in DEXTROSE 5% IN WATER 500 ML IV ONE (09:00)
[2018-02-04] MEDS ORDERED: ZINC SULFATE 50 MG CAPSULE PO SCH ×2 (09:00)
[2018-02-04] MEDS ORDERED: INSULIN GLARGINE, HUMAN 1 UNIT/0.01 ML SQ SCH (09:00)
[2018-02-04] MEDS: cefTRIAXone 2 GM in DEXTROSE 5% IN WATER 50 ML IV SCH (09:13)
[2018-02-04] MEDS: FOLIC ACID 1 MG TABLET PO SCH (09:15)
[2018-02-04] MEDS: amLODIPine 10 MG TABLET PO SCH (09:15)
[2018-02-04] MEDS: ACETAMINOPHEN 650 MG SUPP.RECT PR PRN ×2 (09:15→14:33)
[2018-02-04] MEDS: ASPIRIN 325 MG ENTERIC COATED TABLET PO SCH (09:15)
[2018-02-04] MEDS: MULTIVIT,THER IRON,CA,FA & MIN 1 TABLET PO SCH (09:15)
[2018-02-04] MEDS: FAMOTIDINE 20 MG TABLET PO SCH ×2 (09:16→21:42)
[2018-02-04] MEDS: INSULIN LISPRO 1 UNIT/0.01 ML UNIT SQ SCH ×4 (09:17→21:43)
[2018-02-04] MEDS: CALCIUM W/VIT D3 500 MG TABLET PO SCH ×2 (09:30→21:42)
[2018-02-04] MEDS: DABIGATRAN ETEXILATE MESYLATE 75 MG CAPSULE PO SCH ×2 (09:30→21:43)
[2018-02-04] MEDS: MISOPROSTOL 100 MCG TABLET PO SCH (09:30)
[2018-02-04] MEDS: LABETALOL 100 MG TABLET PO SCH ×2 (09:30→21:47)
[2018-02-04] MEDS: VITAMIN D3 1,000 UNIT TABLET PO SCH (09:30)
[2018-02-04] MEDS: SENNOSIDES/DOCUSATE SODIUM 1 TAB TABLET PO SCH (21:44)
--- NOTE | 2018-02-04 23:29 | Internal Med Progress Note ---
Medical - PN: Subj Patient information: Note initiated : 02/04/18 at 11:28 pm Service Date, if different from initiated Date: [] Patient: January Torres 82 y/o F admitted on 02/02/18 for Unresponsive/ Hyperosmolar Coma, Sepsis, UTI. Chief Complaint: [] - Constitutional Vitals: Vital Signs Temp Pulse Resp BP Pulse Ox 97.3 F 91 H 28 H 134/57 95 02/04/18 20:00 02/04/18 20:00 02/04/18 20:00 02/04/18 20:00 02/04/18 20:00 Period Temp Pulse Resp BP Sys/Roberts Pulse Ox Last 24 Hr 97.3 F-98.6 F 85-91 19-28 124-184/49-77 95-99 Intake and Output 02/04/18 02/04/18 02/05/18 13:59 21:59 05:59 Intake Total 810 / 810 220 / 220 Output Total 275 / 275 Balance 810 / 810 -55 / -55 Weight 190 lb 14.4 oz Patient Weight 02/05/18 05:59 Weight 190 lb 14.4 oz Intake & Output: Intake & Output 02/04/18 02/04/18 02/05/18 13:59 21:59 05:59 Intake Total 810 / 810 220 / 220 Output Total 275 / 275 Balance 810 / 810 -55 / -55 Weight 190 lb 14.4 oz Intake: IV 570 / 570 Potassium Chloride 40 Meq In 520 / 520 Dextrose 5% in Water 500 ml @ 130 mls/hr IV ONCE ONE Rx#: [id number] Rocephin 2 gm In Dextrose 5% in 50 / 50 Water 50 ml @ 100 mls/hr IV DAILY [facility] Rx#:[id number] Oral 240 / 240 220 / 220 Output: Urine Catheter Amount 275 / 275 Other: Meal Lunch Dinner Percent of Meal Consumed 50% 50% Feeding Ability Total Assistance Total Assistance Stool Size Smear Small Stool Color Brown Brown Stool Consistency Loose Loose # Bowel Movements 1 # of times incontinent of 1 1 Bowels Medical - PN: Obj Da - Labs CBC & Chem 7: 02/04/18 04:00 02/04/18 04:00 Labs: Abnormal Lab Results 02/04/18 02/04/18 02/03/18 04:00 04:00 04:28 WBC 11.3 H MCV MPV 11.9 H Lymph % (Auto) 14.3 L Gran # 8.3 H [place] # (Auto) 1.0 H Sodium Potassium 2.9 L* Chloride Carbon Dioxide 20 L BUN Creatinine Glucose 195 H 195 H Hemoglobin A1c Calcium Magnesium NT-Pro-B Natriuret Pep 546.6 H Total Protein 5.6 L Albumin 2.9 L 3.0 L Urine Glucose (UA) Urine Occult Blood Urine Nitrate Ur Leukocyte Esterase Urine WBC Urine Bacteria Hyaline Casts Urine Opiates Screen 02/03/18 02/02/18 02/02/18 04:28 15:28 15:28 WBC 11.3 H MCV 101.1 H MPV 11.7 H 10.8 H Lymph % (Auto) Gran # [place] # (Auto) 1.0 H Sodium Potassium Chloride Carbon Dioxide BUN Creatinine Glucose Hemoglobin A1c 10.3 H Calcium Magnesium NT-Pro-B Natriuret Pep Total Protein Albumin Urine Glucose (UA) Urine Occult Blood Urine Nitrate Ur Leukocyte Esterase Urine WBC Urine Bacteria Hyaline Casts Urine Opiates Screen 02/02/18 02/02/18 02/02/18 15:28 09:20 03:51 WBC MCV MPV Lymph % (Auto) Gran # [place] # (Auto) Sodium 147 H Potassium Chloride 109 H Carbon Dioxide BUN 26 H 30 H Creatinine Glucose 189 H 184 H Hemoglobin A1c Calcium 7.9 L 8.2 L Magnesium 2.6 H NT-Pro-B Natriuret Pep 797.5 H Total Protein Albumin Urine Glucose (UA) Urine Occult Blood Urine Nitrate Ur Leukocyte Esterase Urine WBC Urine Bacteria Hyaline Casts Urine Opiates Screen 02/02/18 02/01/18 02/01/18 03:51 23:00 23:00 WBC MCV MPV Lymph % (Auto) Gran # [place] # (Auto) Sodium 150 H Potassium Chloride 111 H Carbon Dioxide BUN 34 H Creatinine 1.4 H Glucose 145 H Hemoglobin A1c Calcium Magnesium NT-Pro-B Natriuret Pep Total Protein Albumin Urine Glucose (UA) >=500 A Urine Occult Blood 0.03 A Urine Nitrate Pos A Ur Leukocyte Esterase 25 A Urine WBC 10 H Urine Bacteria Few A Hyaline Casts 16 H Urine Opiates Screen Suspect positive A Meds: Medications Acetaminophen (Tylenol) 650 mg [place] Q4-6HP PRN PRN Reason: PAIN/FEVER > 101 Last Admin: 02/04/18 14:33 Dose: 650 mg Amlodipine Besylate (Norvasc) 10 mg PO DAILY [facility] Last Admin: 02/04/18 09:15 Dose: 10 mg Aspirin (Ecotrin) 325 mg PO DAILY [facility] Last Admin: 02/04/18 09:15 Dose: 325 mg Calcitonin [place] (Miacalcin) 1 spray NS DAILY [facility] Last Admin: 02/04/18 07:33 Dose: Not Given Calcium/Vitamin D (Calcium W/Vit D3) 500 mg PO BID [facility] Last Admin: 02/04/18 21:42 Dose: 500 mg Dabigatran (Pradaxa) 75 mg PO BID [facility] Last Admin: 02/04/18 21:43 Dose: 75 mg Dextrose (Dextrose 50%) 0 ml IV UD PRN PRN Reason: Hypoglycemia Diagnostic Test (Pha) (Accu-Chek) 1 each FS ACHS [facility] Last Admin: 02/04/18 21:42 Dose: 1 each Docusate Sodium (Colace) 100 mg PO BID [facility] Last Admin: 02/04/18 21:43 Dose: Not Given Famotidine (Pepcid) 20 mg PO BID [facility] Last Admin: 02/04/18 21:42 Dose: 20 mg Folic Acid (Folic Acid) 1 mg PO DAILY [facility] Last Admin: 02/04/18 09:15 Dose: 1 mg Glucose (Insta-Glucose) 15 gm PO PRN PRN PRN Reason: Hypoglycemia Ceftriaxone Sodium 2 gm/ (Dextrose) 50 mls @ 100 mls/hr IV DAILY [facility] Last Infusion: 02/04/18 09:45 Dose: Infused Insulin Glargine (Lantus) 11 unit SQ DAILY [facility] Last Admin: 02/04/18 09:17 Dose: 11 unit Insulin Human Lispro (Humalog) 0 unit SQ ACHS [facility] PRN Reason: Protocol Last Admin: 02/04/18 21:43 Dose: 2 unit Iron Carb/Multivit/[place]/Folic Acid (Multivitamin W/Minerals) 1 tab PO DAILY [facility] Last Admin: 02/04/18 09:15 Dose: 1 tab Labetalol HCl (Trandate) 100 mg PO BID [facility] Last Admin: 02/04/18 21:47 Dose: 100 mg Labetalol HCl (Trandate) 10 mg IV Q4HP PRN PRN Reason: rebound hypertension Last Admin: 02/04/18 12:16 Dose: 10 mg Misoprostol (Cytotec) 100 mcg PO ACB [facility] Last Admin: 02/04/18 09:30 Dose: 100 mcg Ondansetron HCl (Zofran) 4 mg IV Q4-6HP PRN PRN Reason: Nausea And Vomiting Senna/Docusate Sodium (Senna Plus Tablet) 2 tab PO HS [facility] Last Admin: 02/04/18 21:44 Dose: Not Given Sodium Chloride (Saline Flush) 10 ml IV Q8 [facility] Last Admin: 02/04/18 21:54 Dose: 10 ml Vitamin D (Vitamin D3) 2,000 unit PO DAILY [facility] Last Admin: 02/04/18 09:30 Dose: 2,000 unit Zinc Sulfate (Zinc) 50 mg PO Tu@0900 [facility] Last Admin: 02/04/18 09:30 Dose: 50 mg Medical - PN: A/P - Time Spent With Patient Total time spent is greater than 50% in coordination of care (as documented) at patient's floor/unit and/or counseling patient: (1) Sepsis Status: Acute Current Visit: Yes (2) Hyperosmolar (nonketotic) coma Status: Acute Current Visit: Yes (3) Acute kidney injury Status: Acute Current Visit: Yes (4) Lactic acidosis Status: Acute Current Visit: Yes (5) Dehydration Status: Acute Current Visit: Yes (6) UTI (urinary tract infection) Status: Acute Current Visit: Yes (7) Immunocompromised due to corticosteroids Status: Acute Current Visit: Yes (8) Altered mental status Status: Acute Current Visit: Yes Medical - PN: Qual - Stroke Symptom Onset Unknown: No - VTE Deep Vein Thrombosis/Pulmonary Embolism Present on Admission: No
[2018-02-05 02:11] LABS: Appearance,Urine TURBID; Bacteria,Urine 0 /hpf (0); Color,Urine AMBER; Glucose,Urine (UA) 50 mg/dL (NEG); Leukocyte Esterase,Urine 250 /uL (NEG); Mucus,Urine MANY /hpf (0); Protein,Urine >=500 mg/dL (NEG); Specific Gravity,Urine 1.038 (1.000-1.035); Urine Blood >=1.0 mg/dL (<0.03); Urine Budding Yeast MANY /hpf (0); Urine Hyaline Cast 31 /lpf (0-2); Urine RBC > 182 /hpf (0-1); Urine Squamous Epithelial Cell 4 /hpf (0-4); Urine WBC > 182 /hpf (0-4); Urobilinogen,Urine NEG (NEG)
[2018-02-05] MEDS: 0.9 % SODIUM CHLORIDE 10 ML SYRINGE IV SCH ×3 (05:36→23:00)
[2018-02-05 05:37] LABS: Basophils # (Auto) 0 K/mcL (0.0-0.3); Basophils % (Auto) 0.5 % (0.0-2.0); Eosinophils # (Auto) 0.5 K/mcL (0.0-0.7); Eosinophils % (Auto) 6.2 % (0.0-7.0); Granulocytes % (Auto) 61.4 % (38.0-78.0); Lymphocytes % (Auto) 22.4 % (15.5-49.0); Mean Cell Volume 99.7 fL (80.0-100.0); Mean Corpuscular HGB Conc 33.3 g/dL (31.0-36.0); Mean Corpuscular Hemoglobin 33.2 pg (26.0-34.0); Monocytes # (Auto) 0.8 K/mcL (0.1-0.9); Monocytes % (Auto) 9.5 % (1.0-12.0); Platelet Count 150 K/mcL (140-440); RBC 3.82 M/mcL (4.00-5.20); Red Cell Distribution Width 13.9 % (11.5-14.5)
[2018-02-05 05:55] LABS: ALT/SGPT 31 U/l (0-40); Albumin 2.9 gm/dL (3.2-5.2); Alkaline Phosphatase 89 U/L (39-117); Blood Urea Nitrogen 8 mg/dl (8-23)
[2018-02-05 06:07] LABS: CRP,High Sensitivity 56.6 mg/L (1.0-3.0)
[2018-02-05 06:48] LABS: Erythrocyte Sedimentation Rate 34 mm/hr (0-20)
[2018-02-05] MEDS: LOSARTAN 50 MG TABLET PO SCH (08:11)
[2018-02-05] MEDS: POTASSIUM CHLORIDE 20 MEQ PACKET PO SCH ×2 (08:11→12:11)
[2018-02-05] MEDS: amLODIPine 10 MG TABLET PO SCH (09:11)
[2018-02-05] MEDS: DOCUSATE SODIUM 100 MG CAPSULE PO SCH ×2 (09:11→21:41)
[2018-02-05] MEDS: FAMOTIDINE 20 MG TABLET PO SCH ×2 (09:11→21:45)
[2018-02-05] MEDS: FOLIC ACID 1 MG TABLET PO SCH (09:11)
[2018-02-05] MEDS: LABETALOL 100 MG TABLET PO SCH ×2 (09:11→21:41)
[2018-02-05] MEDS: CALCIUM W/VIT D3 500 MG TABLET PO SCH ×2 (09:11→21:41)
[2018-02-05] MEDS: DABIGATRAN ETEXILATE MESYLATE 75 MG CAPSULE PO SCH ×2 (09:11→21:41)
[2018-02-05] MEDS: MULTIVIT,THER IRON,CA,FA & MIN 1 TABLET PO SCH (09:11)
[2018-02-05] MEDS: VITAMIN D3 1,000 UNIT TABLET PO SCH (09:11)
[2018-02-05] MEDS: MISOPROSTOL 100 MCG TABLET PO SCH (09:11)
[2018-02-05] MEDS: INSULIN GLARGINE, HUMAN 1 UNIT/0.01 ML SQ SCH (09:12)
[2018-02-05] MEDS: ASPIRIN 325 MG ENTERIC COATED TABLET PO SCH (09:12)
[2018-02-05] MEDS: INSULIN LISPRO 1 UNIT/0.01 ML UNIT SQ SCH ×4 (09:13→21:40)
[2018-02-05] MEDS ORDERED: cefTRIAXone 2 GM VIAL ONE (09:14)
[2018-02-05] MEDS: CALCITONIN NASAL SPRAY 3.7ML BOTTLE NS SCH (09:16)
[2018-02-05] MEDS: cefTRIAXone 2 GM in DEXTROSE 5% IN WATER 50 ML IV SCH (09:16)
[2018-02-05] MEDS ORDERED: POTASSIUM CHLORIDE 20 MEQ PACKET PO ONE (12:15)
--- NOTE | 2018-02-05 12:28 | Internal Med Progress Note ---
Medical - PN: Subj Patient information: Note initiated : 02/05/18 at 12:28 pm Service Date, if different from initiated Date: [] Patient: January Torres 82 y/o F admitted on 02/02/18 for Unresponsive/ Hyperosmolar Coma, Sepsis, UTI. 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 2 sets of blood culture were obtained and Zosyn 3.375 was given at ER. Her CODE STATUS is DO NOT RESUSCITATE Comfort Care only. 02/03/18 - Constitutional Vitals: Vital Signs Temp Pulse Resp BP Pulse Ox 97.0 F 80 18 151/68 99 02/05/18 11:51 02/05/18 11:51 02/05/18 11:51 02/05/18 11:51 02/05/18 11:51 Period Temp Pulse Resp BP Sys/Roberts Pulse Ox Last 24 Hr 97.0 F-98.9 F 80-91 18-38 109-159/49-118 94-99 Intake and Output 02/04/18 02/05/18 02/05/18 21:59 05:59 13:59 Intake Total 220 / 220 240 / 240 170 / 170 Output Total 275 / 275 200 / 200 Balance -55 / -55 40 / 40 170 / 170 Weight 190 lb 14.4 oz Intake & Output: Intake & Output 02/04/18 02/05/18 02/05/18 21:59 05:59 13:59 Intake Total 220 / 220 240 / 240 170 / 170 Output Total 275 / 275 200 / 200 Balance -55 / -55 40 / 40 170 / 170 Weight 190 lb 14.4 oz Intake: IV 50 / 50 Rocephin 2 gm In Dextrose 5% in 50 / 50 Water 50 ml @ 100 mls/hr IV DAILY [facility] Rx#:[id number] Oral 220 / 220 120 / 120 GI Tube Flush 240 / 240 Output: Urine Catheter Amount 275 / 275 200 / 200 Other: Meal Dinner Breakfast Percent of Meal Consumed 50% 75% Feeding Ability Total Assistance Total Assistance Stool Size Small Small Moderate Stool Color Brown Brown Brown Stool Consistency Loose Soft # of times incontinent of 1 1 1 Bowels Medical - PN: Obj Da - Labs CBC & Chem 7: 02/05/18 03:55 02/05/18 03:55 Labs: Abnormal Lab Results 02/05/18 02/05/18 02/05/18 03:55 03:55 01:20 WBC RBC 3.82 L MCV MPV 12.0 H Lymph % (Auto) Gran # [place] # (Auto) ESR 34 H Potassium 3.1 L Carbon Dioxide BUN Glucose 166 H Hemoglobin A1c Calcium AST 40 H C-React Prot High Sens 56.6 H NT-Pro-B Natriuret Pep 1562.0 H Total Protein 5.8 L Albumin 2.9 L Ur Specific [place] 1.038 H Urine Protein >=500 A Urine Glucose (UA) 50 A Urine Ketones 5/tr A Urine Occult Blood >=1.0 A Urine Bilirubin 2.0 A Ur Leukocyte Esterase 250 A Urine RBC > 182 H Urine WBC > 182 H Hyaline Casts 31 H Urine Mucus Many A Urine Yeast (Budding) Many A 02/04/18 02/04/18 02/03/18 04:00 04:00 04:28 WBC 11.3 H RBC MCV MPV 11.9 H Lymph % (Auto) 14.3 L Gran # 8.3 H [place] # (Auto) 1.0 H ESR Potassium 2.9 L* Carbon Dioxide 20 L BUN Glucose 195 H 195 H Hemoglobin A1c Calcium AST C-React Prot High Sens NT-Pro-B Natriuret Pep 546.6 H Total Protein 5.6 L Albumin 2.9 L 3.0 L Ur Specific [place] Urine Protein Urine Glucose (UA) Urine Ketones Urine Occult Blood Urine Bilirubin Ur Leukocyte Esterase Urine RBC Urine WBC Hyaline Casts Urine Mucus Urine Yeast (Budding) 02/03/18 02/02/18 02/02/18 04:28 15:28 15:28 WBC 11.3 H RBC MCV 101.1 H MPV 11.7 H 10.8 H Lymph % (Auto) Gran # [place] # (Auto) 1.0 H ESR Potassium Carbon Dioxide BUN Glucose Hemoglobin A1c 10.3 H Calcium AST C-React Prot High Sens NT-Pro-B Natriuret Pep Total Protein Albumin Ur Specific [place] Urine Protein Urine Glucose (UA) Urine Ketones Urine Occult Blood Urine Bilirubin Ur Leukocyte Esterase Urine RBC Urine WBC Hyaline Casts Urine Mucus Urine Yeast (Budding) 02/02/18 15:28 WBC RBC MCV MPV Lymph % (Auto) Gran # [place] # (Auto) ESR Potassium Carbon Dioxide BUN 26 H Glucose 189 H Hemoglobin A1c Calcium 7.9 L AST C-React Prot High Sens NT-Pro-B Natriuret Pep Total Protein Albumin Ur Specific [place] Urine Protein Urine Glucose (UA) Urine Ketones Urine Occult Blood Urine Bilirubin Ur Leukocyte Esterase Urine RBC Urine WBC Hyaline Casts Urine Mucus Urine Yeast (Budding) Meds: Medications Acetaminophen (Tylenol) 650 mg [place] Q4-6HP PRN PRN Reason: PAIN/FEVER > 101 Last Admin: 02/04/18 14:33 Dose: 650 mg Amlodipine Besylate (Norvasc) 10 mg PO DAILY [facility] Last Admin: 02/05/18 09:11 Dose: 10 mg Aspirin (Ecotrin) 325 mg PO DAILY [facility] Last Admin: 02/05/18 09:12 Dose: 325 mg Calcitonin [place] (Miacalcin) 1 spray NS DAILY [facility] Last Admin: 02/05/18 09:16 Dose: Not Given Calcium/Vitamin D (Calcium W/Vit D3) 500 mg PO BID [facility] Last Admin: 02/05/18 09:11 Dose: 500 mg Dabigatran (Pradaxa) 75 mg PO BID [facility] Last Admin: 02/05/18 09:11 Dose: 75 mg Dextrose (Dextrose 50%) 0 ml IV UD PRN PRN Reason: Hypoglycemia Diagnostic Test (Pha) (Accu-Chek) 1 each FS ACHS [facility] Last Admin: 02/05/18 12:11 Dose: 1 each Docusate Sodium (Colace) 100 mg PO BID [facility] Last Admin: 02/05/18 09:11 Dose: 100 mg Famotidine (Pepcid) 20 mg PO BID [facility] Last Admin: 02/05/18 09:11 Dose: 20 mg Folic Acid (Folic Acid) 1 mg PO DAILY [facility] Last Admin: 02/05/18 09:11 Dose: 1 mg Glucose (Insta-Glucose) 15 gm PO PRN PRN PRN Reason: Hypoglycemia Ceftriaxone Sodium 2 gm/ (Dextrose) 50 mls @ 100 mls/hr IV DAILY [facility] Last Infusion: 02/05/18 10:05 Dose: Infused Insulin Glargine (Lantus) 14 unit SQ DAILY [facility] Last Admin: 02/05/18 09:12 Dose: 14 unit Insulin Human Lispro (Humalog) 0 unit SQ ACHS [facility] PRN Reason: Protocol Last Admin: 02/05/18 12:12 Dose: 3 unit Iron Carb/Multivit/[employer]/Folic Acid (Multivitamin W/Minerals) 1 tab PO DAILY [facility] Last Admin: 02/05/18 09:11 Dose: 1 tab Labetalol HCl (Trandate) 100 mg PO BID [facility] Last Admin: 02/05/18 09:11 Dose: 100 mg Labetalol HCl (Trandate) 10 mg IV Q4HP PRN PRN Reason: rebound hypertension Last Admin: 02/04/18 12:16 Dose: 10 mg Losartan Potassium (Cozaar) 50 mg PO DAILY [facility] Last Admin: 02/05/18 08:11 Dose: 50 mg Misoprostol (Cytotec) 100 mcg PO ACB [facility] Last Admin: 02/05/18 09:11 Dose: 100 mcg Ondansetron HCl (Zofran) 4 mg IV Q4-6HP PRN PRN Reason: Nausea And Vomiting Senna/Docusate Sodium (Senna Plus Tablet) 2 tab PO HS [facility] Last Admin: 02/04/18 21:44 Dose: Not Given Sodium Chloride (Saline Flush) 10 ml IV Q8 [facility] Last Admin: 02/05/18 05:36 Dose: 10 ml Vitamin D (Vitamin D3) 2,000 unit PO DAILY [facility] Last Admin: 02/05/18 09:11 Dose: 2,000 unit Zinc Sulfate (Zinc) 50 mg PO Tu@0900 [facility] Last Admin: 02/04/18 09:30 Dose: 50 mg Medical - PN: A/P - Time Spent With Patient Total time spent is greater than 50% in coordination of care (as documented) at patient's floor/unit and/or counseling patient: (1) Sepsis Status: Acute Current Visit: Yes (2) Hyperosmolar (nonketotic) coma Status: Acute Current Visit: Yes (3) Acute kidney injury Status: Acute Current Visit: Yes (4) Lactic acidosis Status: Acute Current Visit: Yes (5) Dehydration Status: Acute Current Visit: Yes (6) UTI (urinary tract infection) Status: Acute Current Visit: Yes (7) Immunocompromised due to corticosteroids Status: Acute Current Visit: Yes (8) Altered mental status Status: Acute Current Visit: Yes Medical - PN: Qual - Stroke Symptom Onset Unknown: No - VTE Deep Vein Thrombosis/Pulmonary Embolism Present on Admission: No
[2018-02-05] MEDS ORDERED: ACETAMINOPHEN 325 MG TABLET PO PRN (13:38)
[2018-02-05] MEDS: SENNOSIDES/DOCUSATE SODIUM 1 TAB TABLET PO SCH (21:42)
[2018-02-06 06:14] LABS: Appearance,Urine CLOUDY; Bacteria,Urine 0 /hpf (0); Bilirubin,Urine NEG (NEG); Color,Urine AMBER; Glucose,Urine (UA) NEGATIVE (NEG); Leukocyte Esterase,Urine 250 /uL (NEG); Mucus,Urine MANY /hpf (0); Protein,Urine 100 mg/dL (NEG); Specific Gravity,Urine 1.032 (1.000-1.035); Urine Blood 0.03 mg/dL (<0.03); Urine Budding Yeast MANY /hpf (0); Urine Hyaline Cast 285 /lpf (0-2); Urine Hyphae Yeast 25 /hpf (0); Urine RBC > 182 /hpf (0-1); Urine Squamous Epithelial Cell 0 /hpf (0-4); Urine WBC > 182 /hpf (0-4); Urobilinogen,Urine NEG (NEG)
[2018-02-06 06:15] LABS: Basophils # (Auto) 0 K/mcL (0.0-0.3); Basophils % (Auto) 0.2 % (0.0-2.0); Eosinophils # (Auto) 0.5 K/mcL (0.0-0.7); Eosinophils % (Auto) 5.6 % (0.0-7.0); Granulocytes % (Auto) 66.8 % (38.0-78.0); Lymphocytes # (Auto) 1.7 K/mcL (1.5-4.8); Mean Cell Volume 100.1 fL (80.0-100.0); Mean Corpuscular HGB Conc 33.7 g/dL (31.0-36.0); Mean Corpuscular Hemoglobin 33.8 pg (26.0-34.0); Monocytes # (Auto) 0.9 K/mcL (0.1-0.9); Monocytes % (Auto) 9.4 % (1.0-12.0); Platelet Count 146 K/mcL (140-440); RBC 3.62 M/mcL (4.00-5.20); Red Cell Distribution Width 14.7 % (11.5-14.5)
[2018-02-06 06:55] LABS: ALT/SGPT 31 U/l (0-40); Albumin 2.8 gm/dL (3.2-5.2); Albumin/Globulin Ratio 1.1 (1.0-2.3); Alkaline Phosphatase 84 U/L (39-117); Blood Urea Nitrogen 6 mg/dl (8-23)
[2018-02-06] MEDS ORDERED: FUROSEMIDE 20 MG/2 ML VIAL IV ONE (07:42)
[2018-02-06] MEDS: 0.9 % SODIUM CHLORIDE 10 ML SYRINGE IV SCH ×3 (08:10→13:50)
[2018-02-06] MEDS: MULTIVIT,THER IRON,CA,FA & MIN 1 TABLET PO SCH (08:16)
[2018-02-06] MEDS: FAMOTIDINE 20 MG TABLET PO SCH ×2 (08:17→23:15)
[2018-02-06] MEDS: DABIGATRAN ETEXILATE MESYLATE 75 MG CAPSULE PO SCH ×2 (08:17→23:15)
[2018-02-06] MEDS: VITAMIN D3 1,000 UNIT TABLET PO SCH (08:17)
[2018-02-06] MEDS: CALCIUM W/VIT D3 500 MG TABLET PO SCH (08:18)
[2018-02-06] MEDS: FOLIC ACID 1 MG TABLET PO SCH (08:18)
[2018-02-06] MEDS: ASPIRIN 325 MG ENTERIC COATED TABLET PO SCH (08:18)
[2018-02-06] MEDS: MISOPROSTOL 100 MCG TABLET PO SCH (08:18)
[2018-02-06] MEDS: INSULIN GLARGINE, HUMAN 1 UNIT/0.01 ML SQ SCH (08:21)
[2018-02-06] MEDS: INSULIN LISPRO 1 UNIT/0.01 ML UNIT SQ SCH ×4 (08:21→21:00)
[2018-02-06] MEDS: CALCITONIN NASAL SPRAY 3.7ML BOTTLE NS SCH (08:28)
[2018-02-06] MEDS: DOCUSATE SODIUM 100 MG CAPSULE PO SCH (08:28)
[2018-02-06] MEDS: LOSARTAN 50 MG TABLET PO SCH (08:31)
[2018-02-06] MEDS: LABETALOL 100 MG TABLET PO SCH ×2 (08:31→23:15)
[2018-02-06] MEDS: cefTRIAXone 2 GM in DEXTROSE 5% IN WATER 50 ML IV SCH (08:31)
[2018-02-06] MEDS: amLODIPine 10 MG TABLET PO SCH (08:32)
--- NOTE | 2018-02-06 10:50 | XRay Report ---
CLINICAL INFORMATION: Coma. Sepsis. TECHNIQUE: Supine and left lateral decubitus abdomen COMPARISON: 10/06/2017 FINDINGS: Bowel gas pattern is unremarkable. There is gas and fecal material within the colon. Fecal volume is within normal limits. No gas-filled dilated small bowel. No mechanical small bowel obstruction. No biliary or portal venous gas. No pneumatosis. No pneumoperitoneum No pathologic calcifications. Previous open reduction and internal fixation of right hip fracture. No pelvic fracture or lytic lesion. IMPRESSION: Negative supine and left lateral decubitus abdomen Interpreted and Authenticated by: Erick Wasserman 02/06/18
[2018-02-06] MEDS ORDERED: PHENAZOPYRIDINE 200 MG TABLET PO PRN ×2 (12:31→13:34)
--- NOTE | 2018-02-06 12:58 | Internal Med Progress Note ---
Medical - PN: Subj Patient information: Note initiated : 02/06/18 at 12:49 pm Service Date, if different from initiated Date: [] Patient: January Torres 82 y/o F admitted on 02/02/18 for Unresponsive/ Hyperosmolar Coma, Sepsis, UTI. 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 2 sets of blood culture were obtained and Zosyn 3.375 was given at ER. Her CODE STATUS is DO NOT RESUSCITATE Comfort Care only. 02/06/18 her sepsis, hyperosmolar nonketotic syndrome, acute kidney injury, lactic acidosis, UTI appeared to be under control, her new onset of diabetes also responding well to long-acting Lantus and sliding scale, proteinuria significantly improved with Cozaar. However nursing report patient is not eating and with no appetite. This morning was pleasant and follow commands, shortly after, RN reports patient grabbing abdomen, with pain indication. --We will check acute abdominal series, recheck venous lactate, and BN peptide --DC Norvasc, DC as needed IV labetalol, continue oral metoprolol, 50 mg daily Cozaar (may need to half dose), will transfer to [facility] floor. - Constitutional Vitals: Vital Signs Temp Pulse Resp BP Pulse Ox 97.3 F 87 20 117/57 97 02/06/18 12:08 02/06/18 08:00 02/06/18 12:08 02/06/18 12:08 02/06/18 12:08 Period Temp Pulse Resp BP Sys/Roberts Pulse Ox Last 24 Hr 97.3 F-98.8 F 79-87 18-30 117-157/52-124 93-97 Intake and Output 02/05/18 02/06/18 02/06/18 21:59 05:59 13:59 Intake Total 1000 / 1000 200 / 200 240 / 240 Output Total 200 / 200 125 / 125 Balance 800 / 800 75 / 75 240 / 240 Weight 194 lb 14.4 oz Intake & Output: Intake & Output 02/05/18 02/06/18 02/06/18 21:59 05:59 13:59 Intake Total 1000 / 1000 200 / 200 240 / 240 Output Total 200 / 200 125 / 125 Balance 800 / 800 75 / 75 240 / 240 Weight 194 lb 14.4 oz Intake: Oral 1000 / 1000 240 / 240 GI Tube Flush 200 / 200 Output: Urine Catheter Amount 200 / 200 125 / 125 Other: Meal Dinner Breakfast Percent of Meal Consumed 25% applesauce juice Feeding Ability Needs Supervision Stool Size Large Smear Large Stool Color Brown Brown Brown Yellow Yellow Stool Consistency Soft Soft # of times incontinent of 1 1 Bowels Medical - PN: Obj Da - Labs CBC & Chem 7: 02/06/18 03:55 02/06/18 03:55 Labs: Abnormal Lab Results 02/06/18 02/06/18 02/06/18 05:40 03:55 03:55 WBC RBC 3.62 L MCV 100.1 H RDW 14.7 H MPV 12.2 H Lymph % (Auto) Gran # [place] # (Auto) ESR Potassium Carbon Dioxide 19 L BUN 6 L Glucose 152 H AST 41 H C-React Prot High Sens NT-Pro-B Natriuret Pep Total Protein 5.4 L Albumin 2.8 L Ur Specific [place] Urine Protein 100 A Urine Glucose (UA) Urine Ketones 5/tr A Urine Occult Blood 0.03 A Urine Bilirubin Ur Leukocyte Esterase 250 A Urine RBC > 182 H Urine WBC > 182 H Hyaline Casts 285 H Urine Mucus Many A Urine Yeast (Budding) Many A 02/05/18 02/05/18 02/05/18 03:55 03:55 01:20 WBC RBC 3.82 L MCV RDW MPV 12.0 H Lymph % (Auto) Gran # [place] # (Auto) ESR 34 H Potassium 3.1 L Carbon Dioxide BUN Glucose 166 H AST 40 H C-React Prot High Sens 56.6 H NT-Pro-B Natriuret Pep 1562.0 H Total Protein 5.8 L Albumin 2.9 L Ur Specific [place] 1.038 H Urine Protein >=500 A Urine Glucose (UA) 50 A Urine Ketones 5/tr A Urine Occult Blood >=1.0 A Urine Bilirubin 2.0 A Ur Leukocyte Esterase 250 A Urine RBC > 182 H Urine WBC > 182 H Hyaline Casts 31 H Urine Mucus Many A Urine Yeast (Budding) Many A 02/04/18 02/04/18 04:00 04:00 WBC 11.3 H RBC MCV RDW MPV 11.9 H Lymph % (Auto) 14.3 L Gran # 8.3 H [place] # (Auto) 1.0 H ESR Potassium 2.9 L* Carbon Dioxide 20 L BUN Glucose 195 H AST C-React Prot High Sens NT-Pro-B Natriuret Pep Total Protein 5.6 L Albumin 2.9 L Ur Specific [place] Urine Protein Urine Glucose (UA) Urine Ketones Urine Occult Blood Urine Bilirubin Ur Leukocyte Esterase Urine RBC Urine WBC Hyaline Casts Urine Mucus Urine Yeast (Budding) Meds: Medications Acetaminophen (Tylenol) 650 mg [place] Q4-6HP PRN PRN Reason: PAIN/FEVER > 101 Last Admin: 02/04/18 14:33 Dose: 650 mg Acetaminophen (Tylenol) 650 mg PO Q4-6HP PRN PRN Reason: PAIN/FEVER > 101 Last Admin: 02/06/18 08:47 Dose: 650 mg Aspirin (Ecotrin) 325 mg PO DAILY [facility] Last Admin: 02/06/18 08:18 Dose: 325 mg Calcitonin [place] (Miacalcin) 1 spray NS DAILY [facility] Last Admin: 02/06/18 08:28 Dose: Not Given Calcium/Vitamin D (Calcium W/Vit D3) 500 mg PO BID [facility] Last Admin: 02/06/18 08:18 Dose: 500 mg Dabigatran (Pradaxa) 75 mg PO BID [facility] Last Admin: 02/06/18 08:17 Dose: 75 mg Dextrose (Dextrose 50%) 0 ml IV UD PRN PRN Reason: Hypoglycemia Diagnostic Test (Pha) (Accu-Chek) 1 each FS ACHS [facility] Last Admin: 02/06/18 12:46 Dose: 1 each Docusate Sodium (Colace) 100 mg PO BID [facility] Last Admin: 02/06/18 08:28 Dose: Not Given Famotidine (Pepcid) 20 mg PO BID [facility] Last Admin: 02/06/18 08:17 Dose: 20 mg Folic Acid (Folic Acid) 1 mg PO DAILY [facility] Last Admin: 02/06/18 08:18 Dose: 1 mg Glucose (Insta-Glucose) 15 gm PO PRN PRN PRN Reason: Hypoglycemia Ceftriaxone Sodium 2 gm/ (Dextrose) 50 mls @ 100 mls/hr IV DAILY [facility] Last Admin: 02/06/18 08:31 Dose: 100 mls/hr Insulin Glargine (Lantus) 14 unit SQ DAILY [facility] Last Admin: 02/06/18 08:21 Dose: 14 unit Insulin Human Lispro (Humalog) 0 unit SQ ACHS [facility] PRN Reason: Protocol Last Admin: 02/06/18 12:45 Dose: 1 unit Iron Carb/Multivit/[place]/Folic Acid (Multivitamin W/Minerals) 1 tab PO DAILY [facility] Last Admin: 02/06/18 08:16 Dose: 1 tab Labetalol HCl (Trandate) 100 mg PO BID [facility] Last Admin: 02/06/18 08:31 Dose: 100 mg Losartan Potassium (Cozaar) 50 mg PO DAILY [facility] Last Admin: 02/06/18 08:31 Dose: 50 mg Misoprostol (Cytotec) 100 mcg PO ACB [facility] Last Admin: 02/06/18 08:18 Dose: 100 mcg Ondansetron HCl (Zofran) 4 mg IV Q4-6HP PRN PRN Reason: Nausea And Vomiting Phenazopyridine HCl (Pyridium) 200 mg PO BIDP PRN PRN Reason: PAINFUL URINATION Senna/Docusate Sodium (Senna Plus Tablet) 2 tab PO HS [facility] Last Admin: 02/05/18 21:42 Dose: Not Given Sodium Chloride (Saline Flush) 10 ml IV Q8 [facility] Last Admin: 02/06/18 12:46 Dose: 10 ml Vitamin D (Vitamin D3) 2,000 unit PO DAILY [facility] Last Admin: 02/06/18 08:17 Dose: 2,000 unit Zinc Sulfate (Zinc) 50 mg PO Tu@0900 [facility] Last Admin: 02/04/18 09:30 Dose: 50 mg Medical - PN: A/P - Time Spent With Patient Total time spent is greater than 50% in coordination of care (as documented) at patient's floor/unit and/or counseling patient: (1) Sepsis Status: Acute Current Visit: Yes (2) Hyperosmolar (nonketotic) coma Status: Acute Current Visit: Yes (3) Acute kidney injury Status: Acute Current Visit: Yes (4) Lactic acidosis Status: Acute Current Visit: Yes (5) Dehydration Status: Acute Current Visit: Yes (6) UTI (urinary tract infection) Status: Acute Current Visit: Yes (7) Immunocompromised due to corticosteroids Status: Acute Current Visit: Yes (8) Altered mental status Status: Acute Current Visit: Yes Medical - PN: Qual - Stroke Symptom Onset Unknown: No - VTE Deep Vein Thrombosis/Pulmonary Embolism Present on Admission: No
[2018-02-06] MEDS ORDERED: DEXTROSE 31 GM ORAL.SUSP PO PRN (13:34)
[2018-02-06] MEDS ORDERED: DEXTROSE 50% 50 ML VIAL IV PRN (13:34)
[2018-02-06] MEDS ORDERED: ONDANSETRON 4 MG/2 ML VIAL IV PRN (13:34)
[2018-02-06] MEDS ORDERED: ACETAMINOPHEN 325 MG TABLET PO PRN (13:34)
[2018-02-06] MEDS ORDERED: ACETAMINOPHEN 650 MG SUPP.RECT PR PRN (13:34)
[2018-02-06 14:55] LABS: proBNP 867.9 pg/ml (0-450)
[2018-02-06] MEDS ORDERED: SENNOSIDES/DOCUSATE SODIUM 1 TAB TABLET PO SCH (21:00)
[2018-02-07] MEDS: DOCUSATE SODIUM 100 MG CAPSULE PO SCH ×2 (02:01→09:44)
[2018-02-07] MEDS: CALCIUM W/VIT D3 500 MG TABLET PO SCH ×2 (02:01→09:43)
[2018-02-07] MEDS: 0.9 % SODIUM CHLORIDE 10 ML SYRINGE IV SCH ×2 (02:28→06:08)
[2018-02-07 05:25] LABS: Appearance,Urine CLOUDY; Bacteria,Urine 0 /hpf (0); Bilirubin,Urine NEG (NEG); Color,Urine RED; Glucose,Urine (UA) NEGATIVE (NEG); Leukocyte Esterase,Urine 25 /uL (NEG); Mucus,Urine MANY /hpf (0); Protein,Urine 100 mg/dL (NEG); Specific Gravity,Urine 1.038 (1.000-1.035); Urine Blood 0.2 mg/dL (<0.03); Urine Budding Yeast MANY /hpf (0); Urine Hyaline Cast 305 /lpf (0-2); Urine Hyphae Yeast 7 /hpf (0); Urine RBC > 182 /hpf (0-1); Urine Squamous Epithelial Cell 0 /hpf (0-4); Urine WBC > 182 /hpf (0-4)
[2018-02-07 06:40] LABS: ALT/SGPT 34 U/l (0-40); Albumin 2.9 gm/dL (3.2-5.2); Alkaline Phosphatase 83 U/L (39-117); Blood Urea Nitrogen 6 mg/dl (8-23)
[2018-02-07] MEDS ORDERED: MISOPROSTOL 100 MCG TABLET PO SCH (07:30)
[2018-02-07] MEDS: INSULIN LISPRO 1 UNIT/0.01 ML UNIT SQ SCH (07:38)
[2018-02-07 08:03] LABS: Basophils # (Auto) 0 K/mcL (0.0-0.3); Basophils % (Auto) 0.3 % (0.0-2.0); Eosinophils # (Auto) 0.6 K/mcL (0.0-0.7); Eosinophils % (Auto) 6.8 % (0.0-7.0); Granulocytes % (Auto) 63.3 % (38.0-78.0); Lymphocytes # (Auto) 1.6 K/mcL (1.5-4.8); Lymphocytes % (Auto) 17.8 % (15.5-49.0); Mean Corpuscular HGB Conc 33.2 g/dL (31.0-36.0); Mean Corpuscular Hemoglobin 33.6 pg (26.0-34.0); Monocytes # (Auto) 1.1 K/mcL (0.1-0.9); Monocytes % (Auto) 11.8 % (1.0-12.0); Platelet Count 168 K/mcL (140-440); RBC 3.58 M/mcL (4.00-5.20); Red Cell Distribution Width 14.5 % (11.5-14.5)
[2018-02-07] MEDS ORDERED: VITAMIN D3 1,000 UNIT TABLET PO SCH (09:00)
[2018-02-07] MEDS ORDERED: FOLIC ACID 1 MG TABLET PO SCH (09:00)
[2018-02-07] MEDS ORDERED: ASPIRIN 325 MG ENTERIC COATED TABLET PO SCH (09:00)
[2018-02-07] MEDS ORDERED: CALCITONIN NASAL SPRAY 3.7ML BOTTLE NS SCH (09:00)
[2018-02-07] MEDS ORDERED: MULTIVIT,THER IRON,CA,FA & MIN 1 TABLET PO SCH (09:00)
[2018-02-07] MEDS ORDERED: cefTRIAXone 2 GM in DEXTROSE 5% IN WATER 50 ML IV SCH (09:00)
[2018-02-07] MEDS ORDERED: LOSARTAN 50 MG TABLET PO SCH (09:00)
[2018-02-07] MEDS ORDERED: INSULIN GLARGINE, HUMAN 1 UNIT/0.01 ML SQ SCH (09:00)
--- NOTE | 2018-02-07 09:42 | Discharge Summary ---
Medical - DS: Prov Patient information: Note initiated : 02/07/18 at 9:34 am Service Date, if different from initiated Date: [] Patient: January Torres 82 y/o F admitted on 02/02/18 for Unresponsive/ Hyperosmolar Coma, Sepsis, UTI. Chief Complaint: [] Date of admission: 02/02/18 03:00 Discharge date: 02/07/18 Primary care physician: Guille Arriaga Admitting clinician: Lev Joe Consults: 02/01/18 Consult to Physician [CONS] Stat Comment: Consulting Provider: Lev Joe Reason For Exam: Physician to Consult Attending physician on discharge: Lev Joe Medical - DS: Meds - Discharge Medications Prescriptions: cefTRIAXone [Rocephin] 2 gm IV Q24H 10 Days #10 vial Furosemide [Lasix] 20 mg PO DAILY #20 tab Insulin Glargine, Human [Lantus] 14 unit SQ DAILY #1 unit Insulin Lispro [Humalog] See Protocol SQ ACHS #1 unit Labetalol [Trandate] 100 mg PO BID #60 tab Losartan [Cozaar] 50 mg PO DAILY #14 tab Active and Home Medications: Home Medications Gabapentin [Neurontin] 200 mg PO BID 11/02/16 [History Confirmed 02/01/18 Last Taken 02/01/18] Ipratropium/Albuterol [Duoneb] 3 ml NEB Q6HP PRN 11/02/16 [History Confirmed 02/12 Last Taken Unknown] Simethicone [Gas-X] 80 mg PO TID PRN 11/02/16 [History Confirmed 02/01/18 Last Taken Unknown] amLODIPine [Norvasc] 10 mg PO DAILY 11/02/16 [History Confirmed 02/01/18 Last Taken 02/01/18] cloNIDine HCL [Catapres] 0.2 mg PO HS 11/02/16 [History Confirmed 02/01/18 Last Taken 02/01/18] Acetaminophen [Tylenol] 650 mg PO Q6HP PRN #0 tablet 11/06/16 [Rx Confirmed 02/12 Last Taken 02/01/18] Calcium W/Vit D3 500 mg PO BID tablet 11/06/16 [Rx Confirmed 02/01/18 Last Taken 02/01/18] Docusate Sodium [Colace] 100 mg PO BID capsule 11/06/16 [Rx Confirmed 02/01/18 Last Taken 02/01/18] Calcitonin [Miacalcin] 1 spray NS DAILY 08/07/17 [History Confirmed 02/01/18 Last Taken 02/01/18] Cholecalciferol (Vitamin D3) [D3 Dots] 2,000 unit PO DAILY 08/07/17 [History Confirmed 02/01/18 Last Taken 02/01/18] Dabigatran Etexilate Mesylate [Pradaxa] 75 mg PO BID 08/07/17 [History Confirmed 02/01/18 Last Taken 02/01/18] Escitalopram [Lexapro] 5 mg PO DAILY 08/07/17 [History Confirmed 02/01/18 Last Taken 02/01/18] Folic Acid 1 mg PO DAILY 08/07/17 [History Confirmed 02/01/18 Last Taken ] Gabapentin [Neurontin] 300 mg PO HS 08/07/17 [History Confirmed 02/01/18 Last Taken 02/01/18] Misoprostol [Cytotec] 100 mcg PO ACB 08/07/17 [History Confirmed 02/01/18 Last Taken 02/01/18] Multivitamin [One Daily] 1 tab PO DAILY 08/07/17 [History Confirmed 02/01/18 Last Taken 02/01/18] Zinc Gluconate [Zinc] 50 mg PO TU@0900 08/07/17 [History Confirmed 02/01/18 Last Taken 01/28/18] predniSONE [Prednisone] 10 [facility] 08/07/17 [History Confirmed 02/01/18 Last Taken 02/01/18] Aspirin [Ecotrin] 325 mg PO DAILY tab.ec 08/09/17 [Rx Confirmed 02/01/18 Last Taken Unknown] Furosemide [Lasix] 40 mg PO DAILY #90 tab 08/09/17 [Rx Confirmed 02/01/18 Last Taken 02/01/18] traZODone HCL [Desyrel] 50 mg PO HS 10/04/17 [History Confirmed 02/01/18 Last Taken 02/01/18] HYDROcodone/ACETAMINOPHEN [Hydrocodon-Acetaminophen 5-325] 1 each PO Q6HP PRN # 14 tablet 10/08/17 [Rx Confirmed 02/02/18 Last Taken 01/29/18] Baclofen [Lioresal] 10 mg PO BID 02/01/18 [History Confirmed 02/01/18 Last Taken 02/01/18] Omeprazole [PriLOSEC] 20 mg PO ACB 02/01/18 [History Confirmed 02/01/18 Last Taken 02/01/18] Sennosides/Docusate Sodium [Senna-Docusate Sodium Tablet] 2 tab PO HS 02/02/18 [ History Confirmed 02/02/18 Last Taken Unknown] Medical - DS: Hosp Hospital course: Mr. Torres is a 82 year old F resident of 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 2 sets of blood culture were obtained and Zosyn 3.375 was given at ER. Her CODE STATUS is DO NOT RESUSCITATE Comfort Care only. 02/06/18 her sepsis, hyperosmolar nonketotic syndrome, acute kidney injury, lactic acidosis, UTI appeared to be under control, her new onset of diabetes ( hemoglobin A1c 10.3) also responding well to long-acting Lantus and sliding scale, proteinuria significantly improved with Cozaar. Her difficult uncontrolled hypertension responded well with discontinuation of steroids, addition of labetalol and Cozaar, discontinuation of clonidine and Norvasc. She just need a light touch of furosemide diuretics overnight. We will resume her on a low-dose 20 mg daily oral furosemide for fluid mobilization ( continuation of diuretics will need to be determined and adjusted by future needs). 02/07/2018: This morning she was plesent and follow commands. She had a big bowel movement overnight, and does not have any more abdominal pain/discomfort. She is ready to be discharged back home, [facility]. Her urine culture sensitivity report came back with multidrug resistant E. coli UTI , responding to 2 g of IV Rocephin. 2 sets of blood culture remained negative at time of discharge she will need to finish additional 10 days of IV Rocephin. Although she has a history of PMR in the past, it does not appear to be active and she does not need prednisone (or steroid) at this time. She also did not require baclofen or gabapentin during this hospitalization; they certainly can be resumed later(only if needed, to avoid polypharmacy adverse effects) with her PCP at the rehab SNF facility. She will need to follow-up with her PCP in 1 -2 weeks and lab draw next week. Her CODE STATUS remained to be DNR. Discharge diagnosis: Sepsis, from UTI Secondary discharge diagnosis: Hyperosmolar nonketotic coma, new finding of DM 2. UTI (urinary tract infection) Acute kidney injury Lactic acidosis Dehydration Altered mental status, due to above combinations Immunocompromised due to corticosteroids - Time Spent with Patient Total time spent providing and/or coordinating discharge services: Greater than 30 minutes Medical - DS: Exam - Constitutional Vitals: Vital Signs Temp Pulse Resp BP BP BP Pulse Ox 02/07/18 06:39 98.1 F 16 112/60 96 02/07/18 03:24 97.6 F 67 20 115/60 92 02/06/18 23:38 98.2 F 86 16 118/72 93 02/06/18 15:52 97 F 74 16 115/71 97 02/06/18 13:54 96.9 F L 77 16 115/71 97 02/06/18 12:08 97.3 F 20 117/57 97 Intake and Output 02/06/18 02/07/18 02/07/18 21:59 05:59 13:59 Intake Total 90 / 90 360 / 360 60 / 60 Output Total 350 / 350 Balance -260 / -260 359 / 359 59 / 59 Intake: Oral 90 / 90 360 / 360 60 / 60 Output: Urine Catheter Amount 350 / 350 # of times incontinent of urine Other: Meal Dinner Breakfast Percent of Meal Consumed 50% 50% Feeding Ability Total Assistance Total Assistance Stool Size Large Small Stool Color Brown Brown Green Stool Consistency Loose Loose # Bowel Movements 1 # of times incontinent of 1 Bowels Weight 187 lb General appearance: no acute distress, obese - Head Head exam: Present: atraumatic, normocephalic - Eye Eye exam: Present: EOMI Pupils: Present: PERRL - ENT ENT exam: Present: mucous membranes moist - Neck Neck exam: Absent: meningismus - Respiratory Respiratory exam: Present: CTAB. Absent: accessory muscle use - Cardiovascular Cardiovascular exam: Present: RRR, +S1, +S2. Absent: clicks, gallop, rubs - GI/Abdominal GI/Abdominal exam: Present: soft. Absent: guarding, rebound, tenderness - Extremities Exam Extremities exam: Present: normal capillary refill, pedal edema - Neurological Exam Neurological exam: Present: alert Additional comments: Right hemiplegic from previous left cerebral CVA - Skin Skin exam: Present: dry, intact, warm Medical - DS: Data Procedures and tests throughout hospitalization: 2D echo report pending at the time of discharge Labs on day of discharge: Labs from last 24 hours 02/07/18 02/07/18 02/07/18 07:01 04:00 04:00 WBC 9.1 TNP RBC 3.58 L TNP Hgb 12.0 TNP Hct 36.2 TNP MCV 101.0 H TNP MCH 33.6 TNP MCHC 33.2 TNP RDW 14.5 TNP Plt Count 168 TNP MPV 11.1 H TNP Gran % 63.3 Lymph % (Auto) 17.8 [place] % (Auto) 11.8 Eos % (Auto) 6.8 Baso % (Auto) 0.3 Gran # 5.7 Lymph # (Auto) 1.6 [place] # (Auto) 1.1 H Eos # (Auto) 0.6 Baso # (Auto) 0 VBG Lactic Acid Sodium 136 Potassium 4.0 Chloride 100 Carbon Dioxide 21 L Anion Gap 15.0 BUN 6 L Creatinine 0.8 GFR Calculation 68 Glucose 128 H Calcium 8.5 L Total Bilirubin 0.2 AST 49 H ALT 34 Alkaline Phosphatase 83 NT-Pro-B Natriuret Pep Total Protein 5.8 L Albumin 2.9 L Globulin 2.9 Albumin/Globulin Ratio 1.0 Urine Color Urine Appearance Urine pH Ur Specific [place] Urine Protein Urine Glucose (UA) Urine Ketones Urine Occult Blood Urine Nitrate Urine Bilirubin Urine Urobilinogen Ur Leukocyte Esterase Urine RBC Urine WBC Ur Squamous Epith Cells Urine Bacteria Hyaline Casts Urine Mucus Ur Yeast w Hyphae Urine Yeast (Budding) Ur Culture Indicated? 02/07/18 02/06/18 02/06/18 02:50 13:19 13:19 WBC RBC Hgb Hct MCV MCH MCHC RDW Plt Count MPV Gran % Lymph % (Auto) [place] % (Auto) Eos % (Auto) Baso % (Auto) Gran # Lymph # (Auto) [place] # (Auto) Eos # (Auto) Baso # (Auto) VBG Lactic Acid 3.7 H Sodium Potassium Chloride Carbon Dioxide Anion Gap BUN Creatinine GFR Calculation Glucose Calcium Total Bilirubin AST ALT Alkaline Phosphatase NT-Pro-B Natriuret Pep 867.9 H Total Protein Albumin Globulin Albumin/Globulin Ratio Urine Color Red Urine Appearance Cloudy Urine pH 5.0 Ur Specific [place] 1.038 H Urine Protein 100 A Urine Glucose (UA) Negative Urine Ketones Neg Urine Occult Blood 0.2 A Urine Nitrate Pos A Urine Bilirubin Neg Urine Urobilinogen 4.0 A Ur Leukocyte Esterase 25 A Urine RBC > 182 H Urine WBC > 182 H Ur Squamous Epith Cells 0 Urine Bacteria 0 Hyaline Casts 305 H Urine Mucus Many A Ur Yeast w Hyphae 7 Urine Yeast (Budding) Many A Ur Culture Indicated? No Preliminary micro results at discharge 02/05/18 03:15 Urine Culture - Preliminary Urine - العراقي Kalie albicans Medical - DS: A/P - Patient/Caregiver Discharge Instructions Activity: as per physical therapy Diet: Cardiac, Low Fat, Consistent Carbohydrate Additional Instructions: [id number] therapy, eval and treat Other Amb Orders: Complete Blood Count Location: Determined By Patient Comprehensive Metabolic Panel Location: Determined By Patient proBNP Location: Determined By Patient Urinalysis Location: Determined By Patient - Problem Maintenance (1) Sepsis Status: Acute Qualifiers: Sepsis type: Escherichia coli Qualified Code(s): A41.51 - Sepsis due to Escherichia coli [E. coli] (2) Hyperosmolar (nonketotic) coma Status: Acute (3) UTI (urinary tract infection) Status: Acute Qualifiers: Urinary tract infection type: acute cystitis Hematuria presence: with hematuria Qualified Code(s): N30.01 - Acute cystitis with hematuria (4) Newly diagnosed diabetes Status: Acute (5) Acute kidney injury Status: Acute (6) Lactic acidosis Status: Acute (7) Dehydration Status: Acute (8) Immunocompromised due to corticosteroids Status: Acute (9) Altered mental status Status: Acute Qualifiers: Altered mental status type: coma Coma depth: [place] coma 3-8 Coma timing : unspecified coma timing Qualified Code(s): R40.2430 - [place] coma scale score 3-8, unspecified time - Follow up Plan Follow up with: Guille Arriaga MD [Primary Care Provider] - Disposition: Xfer SNF Prognosis: Fair Rehab Potential: Fair I certify that the patient requires SNF services: Yes (PT OT speech therapy, eval and rehab) Overall status at discharge: patient is progressing back to baseline Medical - DS: Qual - VTE Deep Vein Thrombosis/Pulmonary Embolism Present on Admission: No
[2018-02-07] MEDS: DABIGATRAN ETEXILATE MESYLATE 75 MG CAPSULE PO SCH (09:43)
[2018-02-07] MEDS: LABETALOL 100 MG TABLET PO SCH (09:43)
[2018-02-07] MEDS: FAMOTIDINE 20 MG TABLET PO SCH (09:43)
[2018-02-11] MEDS ORDERED: ZINC SULFATE 50 MG CAPSULE PO SCH (09:00)
== END 2018-02-07 11:15 | DRG 871 ==
LOC: ED 21:22 → MEDSUR 02-02 03:00 → ICU 02-02 03:00 → MEDSUR 02-06 13:22
PROVIDERS: ADMIT Emergency Medicine; ATTEND Emergency Medicine